=== PATIENT | male | born 1935 | race Caucasian/White ===

== ENCOUNTER → 2016-10-04 | Outpatient (REF) | payer MEDICARE ==
[~2016-10-04] MED LIST: AVEL1TAB PO; CALC500T49 PO; CALC600T10 PO; CENT1TAB PO; CEPA5.4L2 PO; CHLORAPHIL PO; CIPRODEX AD; COUM1TAB17 PO; DOXY100T16 PO; FERR325T3 PO; FLEEENE4 PR; GLUC1CAP9 PO; ICAPCAP PO; IPRASOL4 NEB; LOVE1INJ SC; LUTE6CAP2 PO; LUTIEN PO; MAGN64TASA PO; METO25TAB PO; METO50TA2 PO; MIRA3350 PO; MOM30SS PO; OMEP40CA2 PO; PERCOCET PO; POTA10CA PO; PRED5TA PO; PROBCAP4 PO; SENO8.6T10 PO; SILV1CRE19 TOP; TUMS500C PO; TYLE325T5 PO; ULTR50TA PO; VALS1TAB46 PO; VALS320T3 PO; VITA10006 PO; VITA200038 PO; VOLT1GEL24 TD; ZOFR4TAB3 PO; [UNRECOGNIZED DRUG - CODE] IM; [UNRECOGNIZED DRUG - CODE] IV; [UNRECOGNIZED DRUG - OTHER] PO; [UNRECOGNIZED DRUG - OTHER] PO; [UNRECOGNIZED DRUG - OTHER] PO; [UNRECOGNIZED DRUG - OTHER] PO
== END | disposition home or self-care (01) ==
LOC: M SFHCLERA 15:27
PROVIDERS: ATTEND Nurse Practitioner Family
DX: J06.9 Acute upper respiratory infection, unspecified (principal)

== ENCOUNTER 2016-10-07 16:57 | Emergency (ER) | payer MEDICARE ==
[~2016-10-07 16:57] MED LIST changes: -ACETAMINOPHEN TAB 650MG DOSE (2X325MG) PO PRN; -LIDOCAINE 2% INJ 100 MG/5 ML SDV (FOR ANES.) As Ordered ONE; -LR 1,000 ML IV SCH; -METOCLOPRAMIDE INJ 10MG/2ML VIAL (J2765) IV PRN; -MIDAZOLAM INJ 2 MG/2 ML VIAL (J2250) As Ordered ONE; -ONDANSETRON 4MG/2ML VIAL (J2405) As Ordered ONE; -ONDANSETRON 4MG/2ML VIAL (J2405) IV PRN; -PROPOFOL 200 MG/20 ML VIAL As Ordered ONE; -ROCURONIUM BROMIDE 50 MG/5 ML VIAL As Ordered ONE; -SUGAMMADEX SODIUM 500 MG/5 ML VIAL (BRIDION) As Ordered ONE; -dexameTHASONE 4 MG/ML 1ML VIAL (J1100) As Ordered ONE; -fentaNYL 100 MCG/2 ML INJECTION (J3010) As Ordered ONE; -fentaNYL 100 MCG/2 ML INJECTION (J3010) IV PRN; -oxyBUTYnin 5 MG TAB PO PRN
[2016-10-07 19:19] LABS: BASO % 0.1 % (0.0-1.0); EOS % 1.2 % (0.0-3.0); LARGE UNSTAINED CELL # 0.1 K/mm3 (0.0-0.4); LARGE UNSTAINED CELL % 1.9 % (0.0-4.0); LYMPH # 0.6 K/mm3 (1.5-4.5); LYMPH % 16.8 % (24.0-44.0); MEAN CORPUSCULAR HEMOGLOBIN 35.9 pg (27.0-33.0); MEAN CORPUSCULAR HGB CONC 35.1 g/dl (32.0-36.5); MEAN CORPUSCULAR VOLUME 102.1 fl (80.0-96.0); MONO # 0.1 K/mm3 (0.0-0.8); MONO % 4.2 % (0.0-5.0); NEUTROPHILS # 2.5 K/mm3 (1.8-7.7); NEUTROPHILS % 75.8 % (36.0-66.0); PLATELET COUNT, AUTOMATED 120 k/mm3 (150-450); RED CELL DISTRIBUTION WIDTH 17.1 % (11.5-14.5); WHITE BLOOD COUNT 3.3 K/mm3 (4.0-10.0)
[2016-10-07 19:20] LABS: INR 0.99
[2016-10-07 21:27] LABS: ANION GAP 7 MEQ/L (8-16); BLOOD UREA NITROGEN 13 MG/DL (7-18); CALCIUM LEVEL 8.6 MG/DL (8.8-10.2); CARBON DIOXIDE LEVEL 29 MEQ/L (21-32); CHLORIDE LEVEL 106 MEQ/L (98-107); CREATININE FOR GFR 0.62 MG/DL (0.70-1.30); GLOMERULAR FILTRATION RATE > 60.0 (>35); GLUCOSE, FASTING 147 MG/DL (83-110); POTASSIUM SERUM 4.2 MEQ/L (3.5-5.1); SODIUM LEVEL 142 MEQ/L (136-145)
--- NOTE | 2016-10-07 21:59 | EDDOCDS ---
Nurse's Notes [facility] Name: Atul Ng Age: 81 yrs Sex: Male : 1935 Arrival Date: 10/07/2016 Time: 16:57 Bed 10 Private MD: Johny Mae MD Diagnosis: Retention of urine-resolved Presentation: 10/07 17:04 Presenting complaint: Patient states: pt had bladder resection done today with Dr. clifford Acevedo. Discharged at approx 1430 today. Pt's daughter noticed urine was not draining into bag, urine leaking around catheter. pt reports lower abdominal pressure. Adult Sepsis Screening: The patient does not have new or worsening altered mentation. Patient's respiratory rate is less than 22. Systolic blood pressure is greater than 100. Patient has a qSOFA score of 0- Negative Sepsis Screen. Suicide/Homicide risk assessment- the patient denies having any suicidal and/or homicidal ideations and does not present with any other emotional, behavioral or mental health complaints. 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 Transition of care: patient was not received from another setting of care. 17:04 Acuity: BONY Level 3 ead 17:04 Method Of Arrival: Wheelchair ead Triage Assessment: 17:09 General: Appears in no apparent distress, uncomfortable, Behavior is appropriate for ead age, cooperative. Pain: Location: pelvis Pain currently is 5 out of 10 on a pain scale. Respiratory: Airway is patent Respiratory effort is even, unlabored. : Reports pelvic pressure, urine not draining to catheter. catheter placed today by Dr. Acevedo. Derm: Skin is pink, warm & dry. Historical: - Allergies: Heparin; - Home Meds: 1. calcium 600 mg twice a day 2. chemotherapy Unknown last dose 08/16/16 3. Coumadin 5 mg Oral tab 1 tab once daily (Last dose: 10/01/2016) 4. ferrous sulfate 325 mg (65 mg iron) Oral TbEC daily 5. lutein 6 mg oral cap daily 6. [id number] DR 64 mg daily 7. metoprolol tartrate 25 mg Oral tab 1 tab 2 times per day 8. multivitamin Oral tab 1 tab daily 9. omeprazole 40 mg Oral cpDR 1 cap once daily 10. potassium chloride 10 mEq Oral TbTQ 1 tab once daily 11. prednisone 5 mg Oral tab once daily as needed during flare ups 12. valsartan 80 mg oral tab 1 tab once daily 13. Vitamin D Oral 2000 unit daily 14. Chemotherapy IV - PMHx: Pacemaker; pig valve replacement; Anemia; MDS; GERD; Hypertension; Atrial Fib; - PSHx: left ankle; Knee surgery- Left; Heart Surgery; Pacemaker Insertion; bladder resection; - Social history: Smoking status: Patient states former smoker of tobacco. No barriers to communication noted, The patient speaks fluent Mongolian, Speaks appropriately for age. - Family history: Not pertinent. - : The pt / caregiver states he / she is on anticoagulants: coumadin. have not had since Friday. Pt was on lovenox x 5 days, last dose was yesterday Home medication list is obtained from the patient, family members, [employer] import data. - Exposure Risk Screening:: None identified. Screenin:57 Screening information is obtained from the patient. Fall risk: No risks identified. mlc Assistance ADL's: requires no assistance with activities of daily living. Abuse/DV Screen: The patient / caregiver reports he/she is: not in a situation that causes fear, pain or injury. Nutritional screening: No deficits noted. Advance Directives: There is no active DNR order. home support is adequate. Assessment: 17:34 General: daughter states she saw a big clot in bag opening and removed it PRINCIPAL SOLUTIONS ARCHITECT. srm irrigated zuniga with sterile water- able to instill easily but pulling back meet resistance. . one very small clot noted in return. catheter attached to leg bag. daughter also states he had trouble a few months ago with blockage of catheter. . 19:06 General: pt sand daughter states zuniga is now draining on its own. pink tinged urine srm noted in urinal. 19:40 General: Appears in no apparent distress, comfortable, Behavior is cooperative. mlc Neurological: Level of Consciousness is awake, alert, obeys commands, Oriented to person, place, time. Respiratory: Airway is patent Respiratory effort is even, unlabored, Respiratory pattern is regular. GI: Abdomen is obese, Bowel sounds present X 4 quads. Abd is soft X 4 quads. : Urine is blood tinged. Derm: Skin is normal. 20:21 General: leg bag switched to zuniga drainage bag. Urine draining to gravity. 60 ml of NS mlc flushed into zuniga, returned clear yellow urine. pt denies pain. . 21:28 Reassessment: Patient appears in no apparent distress at this time. Patient denies pain mlc at this time. pt resting comfortably, resp easy/unlabored. Zuniga bag draining to gravity. . 21:57 General: Appears in no apparent distress, comfortable, Behavior is cooperative. mlc Neurological: Level of Consciousness is awake, alert, Oriented to person, place, time. Respiratory: Airway is patent Respiratory effort is even, unlabored, Respiratory pattern is regular. Vital Signs: 17:00 BP 198 / 89; Pulse 88; Resp 18 S; Temp 96.8(O); Pulse Ox 97% on R/A; Weight 88.45 kg dd6 (R); Height 5 ft. 7 in. (170.18 cm) (R); 17:17 BP 189 / 86 (auto/); srm 21:40 BP 158 / 100; Pulse 50; Resp 18; Temp 97.2(O); Pulse Ox 96% on R/A; Pain 0/10; keo 21:45 BP 142 / 78 (man/); keo 17:00 Body Mass Index 30.54 (88.45 kg, 170.18 cm) dd6 Vitals: 17:00 Log In Time: October 07, 2016 at 16:58. RN notified that patient meets Red Flag dd6 criteria. ED Course: 16:59 Patient visited by Loy Peña PCA. dd6 16:59 Johny Mae is Private Physician. dd6 16:59 Patient moved to Waiting dd6 17:01 Patient moved to Pre RCE dd6 17:06 Triage Initiated ead 17:11 Patient moved to 10 ead 17:34 The patient / caregiver is instructed regarding the plan of care and ED course. srm Accompanied by Family Member, Patient has correct armband on for positive identification. Bed in low position. Call light in reach. 18:21 Patient visited by Swati Ernandez PCA. ct3 18:33 Al Shelley MD is Attending Physician. br1 18:44 Patient visited by Al Shelley MD. br1 18:55 Jennie Vargas,RN is Primary Nurse. mlc 19:03 PTT Sent. srm 19:03 PT/INR Sent. srm 19:03 BMP Sent. srm 19:03 CBC with Diff Sent. srm 19:06 Inserted saline lock: 20 gauge in left and blood collected. The patient tolerated the srm procedure well. wrist. 19:07 Patient visited by Kira Kim RN. srm 19:12 [facility] Payment Agreement was scanned into [employer] and attached to record. zo 19:13 Patient visited by Abhinav Kiser PCA. kb5 19:17 Urine Culture Sent. cln 19:17 Urinalysis Sent. cln 20:11 Patient visited by Abhinav Kiser PCA. kb5 20:23 Patient visited by Jennie Vargas RN. mlc 21:24 Patient visited by Ruth Hamilton PCA. keo 21:29 Patient visited by Jennie Vargas RN. mlc 21:38 Jose Carlos Noyola is Referral Physician. br1 21:41 Patient visited by Ruth Hamilton PCA. keo 21:46 Patient visited by Ruth Hamilton PCA. keo 21:57 Discontinued IV lock intact, bleeding controlled, pressure dressing applied, No mlc redness/swelling at site. No procedures done that require assistance. Output: 19:08 Urine: 450.00ml (Zuniga); Total: 450.00ml. [facility] Order Results: Lab Order: CBC with Diff; SPEC'M 10/07/16 19:00 Test: WHITE BLOOD COUNT; Value: 3.3; Range: 4.0-10.0; Abnormal: Below low normal; Units: K/mm3; Status: F Test: RED BLOOD COUNT; Value: 3.08; Range: 4.30-6.10; Abnormal: Below low normal; Units: M/mm3; Status: F Test: HEMOGLOBIN; Value: 11.1; Range: 14.0-18.0; Abnormal: Below low normal; Units: g/dl; Status: F Test: HEMATOCRIT; Value: 31.5; Range: 42.0-52.0; Abnormal: Below low normal; Units: %; Status: F Test: MEAN CORPUSCULAR VOLUME; Value: 102.1; Range: 80.0-96.0; Abnormal: Above high normal; Units: fl; Status: F Test: MEAN CORPUSCULAR HEMOGLOBIN; Value: 35.9; Range: 27.0-33.0; Abnormal: Above high normal; Units: pg; Status: F Test: MEAN CORPUSCULAR HGB CONC; Value: 35.1; Range: 32.0-36.5; Units: g/dl; Status: F Test: RED CELL DISTRIBUTION WIDTH; Value: 17.1; Range: 11.5-14.5; Abnormal: Above high normal; Units: %; Status: F Test: PLATELET COUNT, AUTOMATED; Value: 120; Range: 150-450; Abnormal: Below low normal; Units: k/mm3; Status: F Test: NEUTROPHILS %; Value: 75.8; Range: 36.0-66.0; Abnormal: Above high normal; Units: %; Status: F Test: LYMPH %; Value: 16.8; Range: 24.0-44.0; Abnormal: Below low normal; Units: %; Status: F Test: MONO %; Value: 4.2; Range: 0.0-5.0; Units: %; Status: F Test: EOS %; Value: 1.2; Range: 0.0-3.0; Units: %; Status: F Test: BASO %; Value: 0.1; Range: 0.0-1.0; Units: %; Status: F Test: LARGE UNSTAINED CELL %; Value: 1.9; Range: 0.0-4.0; Units: %; Status: F Test: NEUTROPHILS #; Value: 2.5; Range: 1.8-7.7; Units: K/mm3; Status: F Test: LYMPH #; Value: 0.6; Range: 1.5-4.5; Abnormal: Below low normal; Units: K/mm3; Status: F Test: MONO #; Value: 0.1; Range: 0.0-0.8; Units: K/mm3; Status: F Test: EOS #; Value: 0.0; Range: 0.0-0.50; Units: K/mm3; Status: F Test: BASO #; Value: 0.0; Range: 0.0-0.2; Units: K/mm3; Status: F Test: LARGE UNSTAINED CELL #; Value: 0.1; Range: 0.0-0.4; Units: K/mm3; Status: F Lab Order: [facility]; SPEC'M 10/07/16 20:48 Test: GLUCOSE, FASTING; Value: 147; Range: 83-110; Abnormal: Above high normal; Units: MG/DL; Status: F Test: BLOOD UREA NITROGEN; Value: 13; Range: 7-18; Units: MG/DL; Status: F Test: CREATININE FOR GFR; Value: 0.62; Range: 0.70-1.30; Abnormal: Below low normal; Units: MG/DL; Status: F Test: GLOMERULAR FILTRATION RATE; Value: > 60.0; Range: >35; Status: F Test: SODIUM LEVEL; Value: 142; Range: 136-145; Units: MEQ/L; Status: F Test: POTASSIUM SERUM; Value: 4.2; Range: 3.5-5.1; Units: MEQ/L; Status: F Test: CHLORIDE LEVEL; Value: 106; Range: 98-107; Units: MEQ/L; Status: F Test: CARBON DIOXIDE LEVEL; Value: 29; Range: 21-32; Units: MEQ/L; Status: F Test: ANION GAP; Value: 7; Range: 8-16; Abnormal: Below low normal; Units: MEQ/L; Status: F Test: CALCIUM LEVEL; Value: 8.6; Range: 8.8-10.2; Abnormal: Below low normal; Units: MG/DL; Status: F Test Note: ; Units are mL/min/1.73 m2 Chronic Kidney Disease Staging per NKF: Stage I & II GFR >=60 Normal to Mildly Decreased Stage III GFR 30-59 Moderately Decreased Stage IV GFR 15-29 Severely Decreased Stage V GFR <15 Very Little GFR Left ESRD GFR <15 on FILM RENTAL CLERK Lab Order: PT/INR; SPEC'M 10/07/16 19:00 Test: PROTHROMBIN TIME; Value: 13.2; Range: 12.3-14.5; Units: SECONDS; Status: F Test: INR; Value: 0.99; Status: F Test Note: ; THERAPUTIC HUMAN INR VALUES INDICATIONS NORMAL RANGES PROPHYLAXIS/TREATMENT OF: VENOUS THROMBOSIS 2.0-3.0 PULMONARY EMBOLISM 2.0-3.0 PREVENTION OF SYSTEMIC EMBOLISM FROM: TISSUE HEART VALVES 2.0-3.0 ACUTE MYOCARDIAL INFARCTION 2.0-3.0 VALVULAR HEART DISEASE 2.0-3.0 ATRIAL FIBRILLATION 2.0-3.0 MECHANICAL VALVES(HIGH RISK) 2.5-3.5 RECURRENT MYOCARDIAL INFARCTION 2.5-3.5 Lab Order: PTT; SPEC'M 10/07/16 19:00 Test: PARTIAL THROMBOPLASTIN TIME; Value: 31.0; Range: 26.6-37.1; Units: SECONDS; Status: F Lab Order: Urinalysis; SPEC'M 10/07/16 20:15 Test: APPEARANCE, URINE; Value: CLEAR; Range: CLEAR; Status: F Test: COLOR, URINE; Value: STRAW; Range: YELLOW; Status: F Test: PH,URINE; Value: 7.0; Range: 5.0-9.0; Units: UNITS; Status: F Test: SPECIFIC GRAVITY URINE AUTO; Value: 1.002; Range: 1.002-1.035; Status: F Test: PROTEIN, URINE AUTO; Value: 1+; Range: NEGATIVE; Abnormal: Above high normal; Units: mg/dL; Status: F Test: GLUCOSE, URINE (UA) AUTO; Value: NEGATIVE; Range: NEGATIVE; Units: mg/dL; Status: F Test: KETONE, URINE AUTO; Value: NEGATIVE; Range: NEGATIVE; Units: mg/dL; Status: F Test: UROBILINOGEN, URINE AUTO; Value: 0.2; Range: 0.0-2.0; Units: mg/dL; Status: F Test: BILIRUBIN, URINE AUTO; Value: NEGATIVE; Range: NEGATIVE; Status: F Test: NITRITE, URINE AUTO; Value: NEGATIVE; Range: NEGATIVE; Status: F Test: LEUKOCYTE ESTERASE, URINE AUTO; Value: NEGATIVE; Range: NEGATIVE; Status: F Test: BLOOD, URINE BLOOD; Value: 3+; Range: NEGATIVE; Abnormal: Above high normal; Status: F Test: WBC, URINE AUTO; Value: 3; Range: 0-3; Units: /HPF; Status: F Test: RBC, URINE AUTO; Value: 23; Range: 0-3; Abnormal: Above high normal; Units: /HPF; Status: F Test: BACTERIA, URINE AUTO; Value: NEGATIVE; Range: NEGATIVE; Status: F Test: SQUAMOUS EPITHELIAL CELL UR AU; Value: 0; Range: 0-6; Units: /HPF; Status: F Test: HYALINE CAST, URINE AUTO; Value: 0; Range: 0-1; Units: /LPF; Status: F Outcome: 21:39 Discharge ordered by Provider. br1 21:57 Discharge Assessment: Patient awake, alert and oriented x 3. No cognitive and/or mlc functional deficits noted. Patient verbalized understanding of disposition instructions. patient administered narcotics - no. The following High Risk Discharge criteria are identified: None. Discharged to home via wheelchair, with family. Condition: good Condition: stable. Discharge instructions given to patient, Instructed on discharge instructions, follow up and referral plans. Demonstrated understanding of instructions, Pt was receptive of discharge instructions/ teaching. No special radiology studies were completed. Property sent home with patient. 21:58 [place] [facility] [place]: Kira Kim, RN RN srm Emiliano, Abhinav Leija, TECHNICAL ADJUSTER TECHNICAL ADJUSTER kb5 Al Shelley MD MD br1 Loy Peña, TECHNICAL ADJUSTER TECHNICAL ADJUSTER dd6 Ruth Hamilton, TECHNICAL ADJUSTER TECHNICAL ADJUSTER keo Swati Ernandez, TECHNICAL ADJUSTER TECHNICAL ADJUSTER ct3 Rosalie Mixon RN RN ead Booth, Mandy, RN RN mlc Nichols, Crystal, TECHNICAL ADJUSTER TECHNICAL ADJUSTER cln JUAN MANUEL
--- NOTE | 2016-10-07 21:59 | EDDOCDS ---
Physician Documentation [facility] Name: Atul Ng Age: 81 yrs Sex: Male : 1935 Arrival Date: 10/07/2016 Time: 16:57 Bed 10 Private MD: Johny Mae MD Disposition: 10/07/16 21:39 Discharged to Home/Self Care. Impression: Retention of urine - resolved. - Condition is Stable. - Discharge Instructions: Zuniga Catheter Care, Adult, Hematuria, Adult, Urinary Retention, Acute, Male. - Medication Reconciliation, Local Pharmacy Hours form. - Follow up: Jose Carlos Noyola; When: 1 week; Reason: Recheck today's complaints. - Problem is new. - Symptoms are resolved. - Notes: You were seen in the ED for urinary retention from a plugged catheter after your urology procedure today. The catheter was able to be flushed and as it is now working appropriately you may return home to follow up with your urologist in 1 week. Return to the ED for any return of pain, zuniga catheter not draining, worsening bleeding in the urine, or any other concerns. Historical: - Allergies: Heparin; - Home Meds: 1. calcium 600 mg twice a day 2. chemotherapy Unknown last dose 08/16/16 3. Coumadin 5 mg Oral tab 1 tab once daily (Last dose: 10/01/2016) 4. ferrous sulfate 325 mg (65 mg iron) Oral TbEC daily 5. lutein 6 mg oral cap daily 6. [id number] DR 64 mg daily 7. metoprolol tartrate 25 mg Oral tab 1 tab 2 times per day 8. multivitamin Oral tab 1 tab daily 9. omeprazole 40 mg Oral cpDR 1 cap once daily 10. potassium chloride 10 mEq Oral TbTQ 1 tab once daily 11. prednisone 5 mg Oral tab once daily as needed during flare ups 12. valsartan 80 mg oral tab 1 tab once daily 13. Vitamin D Oral 2000 unit daily 14. Chemotherapy IV - PMHx: Pacemaker; pig valve replacement; Anemia; MDS; GERD; Hypertension; Atrial Fib; - PSHx: left ankle; Knee surgery- Left; Heart Surgery; Pacemaker Insertion; bladder resection; - Social history: Smoking status: Patient states former smoker of tobacco. No barriers to communication noted, The patient speaks fluent [place], Speaks appropriately for age. - Family history: Not pertinent. - : The pt / caregiver states he / she is on anticoagulants: coumadin. have not had since Friday. Pt was on lovenox x 5 days, last dose was yesterday Home medication list is obtained from the patient, family members, [employer] import data. - Exposure Risk Screening:: None identified. Vital Signs: 10/07 17:00 BP 198 / 89; Pulse 88; Resp 18 S; Temp 96.8(O); Pulse Ox 97% on R/A; Weight 88.45 kg / dd6 195 lbs (R); Height 5 ft. 7 in. (170.18 cm) (R); 17:17 BP 189 / 86 (auto/); srm 21:40 BP 158 / 100; Pulse 50; Resp 18; Temp 97.2(O); Pulse Ox 96% on R/A; Pain 0/10; keo 21:45 BP 142 / 78 (man/); keo 17:00 Body Mass Index 30.54 (88.45 kg, 170.18 cm) dd6 MDM: 18:44 IV Saline Lock ordered. br1 18:45 Bladder Scan please ordered. br1 18:45 CBC with Diff Ordered. EDMS 18:45 BMP Ordered. EDMS 18:45 PT/INR Ordered. EDMS 18:45 PTT Ordered. EDMS 18:46 Urinalysis Ordered. EDMS 18:46 Urine Culture Ordered. EDMS 19:10 Financial registration complete. zo 19:12 [facility] Payment Agreement was scanned into [employer] and attached to record. zo 21:13 CBC with Diff Reviewed. br1 21:13 Urinalysis Reviewed. br1 21:13 PT/INR Reviewed. br1 21:13 PTT Reviewed. br1 21:31 BMP Reviewed. br1 Signatures: Dispatcher [employer] EDMS Kira Kim RN RN srm Jayleen Cummings zo Al Shelley MD MD br1 Rosalie Mixon RN RN ead Booth, Mandy, RN RN mlc The chart was reviewed and I authenticate all verbal orders and agree with the evaluation and treatment provided.Attachments: 19:12 [facility] Payment Agreement zo MTDD
--- NOTE | 2016-10-08 08:03 | RO ---
DATE OF PROCEDURE: 10/07/2016 PREOPERATIVE DIAGNOSIS: Bladder tumors. POSTOPERATIVE DIAGNOSIS: Bladder tumors. PROCEDURE: Cystoscopy, transurethral resection of bladder tumor (greater than 5 cm), examination under anesthesia. SURGEON: Jose Carlos Noyola MD LIFTS AND CRANES INSPECTOR: None. ANESTHESIA: General. 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 He was brought to the operating room today for resection of the bladder tumors. DESCRIPTION OF PROCEDURE: The patient was brought to the operating room, and general anesthesia was induced. Prophylactic antibiotics were infused. He was then placed in dorsal lithotomy position, and a bimanual digital rectal exam under anesthesia was performed. It was negative for a palpable prostate nodules and there were no palpable bladder masses. The patient was then prepped and draped in the usual sterile fashion. A rigid cystoscope was then inserted into the urethral meatus and advanced into the bladder. The bladder was then thoroughly examined with both 30 and 70 degree lenses, and at the 5-o'clock position on the bladder neck there appeared to be one papillary tumor growing on a stalk. 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 There were a few more of these lesions seen on the anterior wall as well. I then used a gyrus loop to resect all these areas. They were all sent separately. Once satisfied I resected all the abnormalities within the bladder, hemostasis was obtained with the coagulation current. Once satisfied with hemostasis, the resectoscope was removed and an #18 Telugu Dickson catheter was inserted into the bladder. Urine drained clear at the end of the procedure. The balloon was then inflated with 10 mL of sterile water. The catheter was then connected to gravity drainage. The patient was then taken out of dorsal lithotomy position, awakened from anesthesia and transported to recovery room in stable condition. ESTIMATED BLOOD LOSS: 0 mL. COMPLICATIONS: None. SPECIMENS: Resection of anterior wall bladder tumor, resection of posterior wall bladder tumor, resection of bladder tumor at the bladder neck. PLAN: The patient will be sent home with his catheter in place. He will followup in clinic in about 1 week for catheter removal and to discuss his pathology results. JUAN MANUEL
--- NOTE | 2016-10-09 22:59 | EDDOCDS ---
Physician Documentation [facility] Name: Atul Ng Age: 81 yrs Sex: Male : 1935 Arrival Date: 10/07/2016 Time: 16:57 Bed 10 Private MD: Johny Mae MD Disposition: 10/07/16 21:39 Discharged to Home/Self Care. Impression: Retention of urine - resolved. - Condition is Stable. - Discharge Instructions: Zuniga Catheter Care, Adult, Hematuria, Adult, Urinary Retention, Acute, Male. - Medication Reconciliation, Local Pharmacy Hours form. - Follow up: Jose Carlos Noyola; When: 1 week; Reason: Recheck today's complaints. - Problem is new. - Symptoms are resolved. - Notes: You were seen in the ED for urinary retention from a plugged catheter after your urology procedure today. The catheter was able to be flushed and as it is now working appropriately you may return home to follow up with your urologist in 1 week. Return to the ED for any return of pain, zuniga catheter not draining, worsening bleeding in the urine, or any other concerns. Historical: - Allergies: Heparin; - Home Meds: 1. calcium 600 mg twice a day 2. chemotherapy Unknown last dose 08/16/16 3. Coumadin 5 mg Oral tab 1 tab once daily (Last dose: 10/01/2016) 4. ferrous sulfate 325 mg (65 mg iron) Oral TbEC daily 5. lutein 6 mg oral cap daily 6. [id number] DR 64 mg daily 7. metoprolol tartrate 25 mg Oral tab 1 tab 2 times per day 8. multivitamin Oral tab 1 tab daily 9. omeprazole 40 mg Oral cpDR 1 cap once daily 10. potassium chloride 10 mEq Oral TbTQ 1 tab once daily 11. prednisone 5 mg Oral tab once daily as needed during flare ups 12. valsartan 80 mg oral tab 1 tab once daily 13. Vitamin D Oral 2000 unit daily 14. Chemotherapy IV - PMHx: Pacemaker; pig valve replacement; Anemia; MDS; GERD; Hypertension; Atrial Fib; - PSHx: left ankle; Knee surgery- Left; Heart Surgery; Pacemaker Insertion; bladder resection; - Social history: Smoking status: Patient states former smoker of tobacco. No barriers to communication noted, The patient speaks fluent Canadian, Speaks appropriately for age. - Family history: Not pertinent. - : The pt / caregiver states he / she is on anticoagulants: coumadin. have not had since Friday. Pt was on lovenox x 5 days, last dose was yesterday Home medication list is obtained from the patient, family members, [employer] import data. - Exposure Risk Screening:: None identified. Vital Signs: 10/07 17:00 BP 198 / 89; Pulse 88; Resp 18 S; Temp 96.8(O); Pulse Ox 97% on R/A; Weight 88.45 kg / dd6 195 lbs (R); Height 5 ft. 7 in. (170.18 cm) (R); 17:17 BP 189 / 86 (auto/); srm 21:40 BP 158 / 100; Pulse 50; Resp 18; Temp 97.2(O); Pulse Ox 96% on R/A; Pain 0/10; keo 21:45 BP 142 / 78 (man/); keo 17:00 Body Mass Index 30.54 (88.45 kg, 170.18 cm) dd6 MDM: 18:44 IV Saline Lock ordered. br1 18:45 Bladder Scan please ordered. br1 18:45 CBC with Diff Ordered. EDMS 18:45 BMP Ordered. EDMS 18:45 PT/INR Ordered. EDMS 18:45 PTT Ordered. EDMS 18:46 Urinalysis Ordered. EDMS 18:46 Urine Culture Ordered. EDMS 19:10 Financial registration complete. zo 19:12 [facility] Payment Agreement was scanned into [employer] and attached to record. zo 21:13 CBC with Diff Reviewed. br1 21:13 Urinalysis Reviewed. br1 21:13 PT/INR Reviewed. br1 21:13 PTT Reviewed. br1 21:31 BMP Reviewed. br1 10/08 09:08 T-Sheet-- Draft Copy was scanned into [employer] and attached to record. gb Signatures: Dispatcher [employer] EDMS Kira Kim, CHRISTIANO RN srm Marguerite Tinoco, Reg Reg Jayleen Burciaga Brian, MD MD br1 Rosalie Mixon RN RN Jennie Jenkins RN RN mlc The chart was reviewed and I authenticate all verbal orders and agree with the evaluation and treatment provided.Attachments: 10/07 19:12 [facility] Payment Agreement zo 10/08 09:08 T-Sheet-- Draft Copy gb Chart Complete MTDD
--- NOTE | 2016-10-09 22:59 | EDDOCDS ---
Nurse's Notes [facility] Name: Atul Ng Age: 81 yrs Sex: Male : 1935 Arrival Date: 10/07/2016 Time: 16:57 Bed 10 Private MD: Johny Mae MD Diagnosis: Retention of urine-resolved Presentation: 10/07 17:04 Presenting complaint: Patient states: pt had bladder resection done today with Dr. clifford Acevedo. Discharged at approx 1430 today. Pt's daughter noticed urine was not draining into bag, urine leaking around catheter. pt reports lower abdominal pressure. Adult Sepsis Screening: The patient does not have new or worsening altered mentation. Patient's respiratory rate is less than 22. Systolic blood pressure is greater than 100. Patient has a qSOFA score of 0- Negative Sepsis Screen. Suicide/Homicide risk assessment- the patient denies having any suicidal and/or homicidal ideations and does not present with any other emotional, behavioral or mental health complaints. Status: Patient is not a passenger service agent or dependent. Transition of care: patient was not received from another setting of care. 17:04 Acuity: BONY Level 3 ead 17:04 Method Of Arrival: Wheelchair ead Triage Assessment: 17:09 General: Appears in no apparent distress, uncomfortable, Behavior is appropriate for ead age, cooperative. Pain: Location: pelvis Pain currently is 5 out of 10 on a pain scale. Respiratory: Airway is patent Respiratory effort is even, unlabored. : Reports pelvic pressure, urine not draining to catheter. catheter placed today by Dr. Acevedo. Derm: Skin is pink, warm & dry. Historical: - Allergies: Heparin; - Home Meds: 1. calcium 600 mg twice a day 2. chemotherapy Unknown last dose 08/16/16 3. Coumadin 5 mg Oral tab 1 tab once daily (Last dose: 10/01/2016) 4. ferrous sulfate 325 mg (65 mg iron) Oral TbEC daily 5. lutein 6 mg oral cap daily 6. [id number] DR 64 mg daily 7. metoprolol tartrate 25 mg Oral tab 1 tab 2 times per day 8. multivitamin Oral tab 1 tab daily 9. omeprazole 40 mg Oral cpDR 1 cap once daily 10. potassium chloride 10 mEq Oral TbTQ 1 tab once daily 11. prednisone 5 mg Oral tab once daily as needed during flare ups 12. valsartan 80 mg oral tab 1 tab once daily 13. Vitamin D Oral 2000 unit daily 14. Chemotherapy IV - PMHx: Pacemaker; pig valve replacement; Anemia; MDS; GERD; Hypertension; Atrial Fib; - PSHx: left ankle; Knee surgery- Left; Heart Surgery; Pacemaker Insertion; bladder resection; - Social history: Smoking status: Patient states former smoker of tobacco. No barriers to communication noted, The patient speaks fluent Turkish, Speaks appropriately for age. - Family history: Not pertinent. - : The pt / caregiver states he / she is on anticoagulants: coumadin. have not had since Friday. Pt was on lovenox x 5 days, last dose was yesterday Home medication list is obtained from the patient, family members, [employer] import data. - Exposure Risk Screening:: None identified. Screenin:57 Screening information is obtained from the patient. Fall risk: No risks identified. mlc Assistance ADL's: requires no assistance with activities of daily living. Abuse/DV Screen: The patient / caregiver reports he/she is: not in a situation that causes fear, pain or injury. Nutritional screening: No deficits noted. Advance Directives: There is no active DNR order. home support is adequate. 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 srm irrigated zuniga with sterile water- able to instill easily but pulling back meet resistance. . one very small clot noted in return. catheter attached to leg bag. daughter also states he had trouble a few months ago with blockage of catheter. . 19:06 General: pt sand daughter states zuniga is now draining on its own. pink tinged urine srm noted in urinal. 19:40 General: Appears in no apparent distress, comfortable, Behavior is cooperative. mlc Neurological: Level of Consciousness is awake, alert, obeys commands, Oriented to person, place, time. Respiratory: Airway is patent Respiratory effort is even, unlabored, Respiratory pattern is regular. GI: Abdomen is obese, Bowel sounds present X 4 quads. Abd is soft X 4 quads. : Urine is blood tinged. Derm: Skin is normal. 20:21 General: leg bag switched to zuniga drainage bag. Urine draining to gravity. 60 ml of NS mlc flushed into zuniga, returned clear yellow urine. pt denies pain. . 21:28 Reassessment: Patient appears in no apparent distress at this time. Patient denies pain mlc at this time. pt resting comfortably, resp easy/unlabored. Zuniga bag draining to gravity. . 21:57 General: Appears in no apparent distress, comfortable, Behavior is cooperative. mlc Neurological: Level of Consciousness is awake, alert, Oriented to person, place, time. Respiratory: Airway is patent Respiratory effort is even, unlabored, Respiratory pattern is regular. Vital Signs: 17:00 BP 198 / 89; Pulse 88; Resp 18 S; Temp 96.8(O); Pulse Ox 97% on R/A; Weight 88.45 kg dd6 (R); Height 5 ft. 7 in. (170.18 cm) (R); 17:17 BP 189 / 86 (auto/); srm 21:40 BP 158 / 100; Pulse 50; Resp 18; Temp 97.2(O); Pulse Ox 96% on R/A; Pain 0/10; keo 21:45 BP 142 / 78 (man/); keo 17:00 Body Mass Index 30.54 (88.45 kg, 170.18 cm) dd6 Vitals: 17:00 Log In Time: October 07, 2016 at 16:58. RN notified that patient meets Red Flag dd6 criteria. ED Course: 16:59 Patient visited by Loy Peña PCA. dd6 16:59 Johny Mae is Private Physician. dd6 16:59 Patient moved to Waiting dd6 17:01 Patient moved to Pre RCE dd6 17:06 Triage Initiated ead 17:11 Patient moved to 10 ead 17:34 The patient / caregiver is instructed regarding the plan of care and ED course. srm Accompanied by Family Member, Patient has correct armband on for positive identification. Bed in low position. Call light in reach. 18:21 Patient visited by Swati Ernandez PCA. ct3 18:33 Al Shelley MD is Attending Physician. br1 18:44 Patient visited by Al Shelley MD. br1 18:55 Jennie Vargas,RN is Primary Nurse. mlc 19:03 PTT Sent. srm 19:03 PT/INR Sent. srm 19:03 BMP Sent. srm 19:03 CBC with Diff Sent. srm 19:06 Inserted saline lock: 20 gauge in left and blood collected. The patient tolerated the srm procedure well. wrist. 19:07 Patient visited by Kira Kim RN. srm 19:12 [facility] Payment Agreement was scanned into [employer] and attached to record. zo 19:13 Patient visited by Abhinav Kiser PCA. kb5 19:17 Urine Culture Sent. cln 19:17 Urinalysis Sent. cln 20:11 Patient visited by Abhinav Kiser PCA. kb5 20:23 Patient visited by Jennie Vargas RN. mlc 21:24 Patient visited by Ruth Hamilton PCA. keo 21:29 Patient visited by Jennie Vargas RN. mlc 21:38 Jose Carlos Noyola is Referral Physician. br1 21:41 Patient visited by Ruth Hamilton PCA. keo 21:46 Patient visited by Ruth Hamilton PCA. keo 21:57 Discontinued IV lock intact, bleeding controlled, pressure dressing applied, No mlc redness/swelling at site. No procedures done that require assistance. 10/08 09:08 T-Sheet-- Draft Copy was scanned into [employer] and attached to record. gb Output: 10/07 19:08 Urine: 450.00ml (Zuniga); Total: 450.00ml. [facility] Order Results: Lab Order: CBC with Diff; SPEC'M 10/07/16 19:00 Test: WHITE BLOOD COUNT; Value: 3.3; Range: 4.0-10.0; Abnormal: Below low normal; Units: K/mm3; Status: F Test: RED BLOOD COUNT; Value: 3.08; Range: 4.30-6.10; Abnormal: Below low normal; Units: M/mm3; Status: F Test: HEMOGLOBIN; Value: 11.1; Range: 14.0-18.0; Abnormal: Below low normal; Units: g/dl; Status: F Test: HEMATOCRIT; Value: 31.5; Range: 42.0-52.0; Abnormal: Below low normal; Units: %; Status: F Test: MEAN CORPUSCULAR VOLUME; Value: 102.1; Range: 80.0-96.0; Abnormal: Above high normal; Units: fl; Status: F Test: MEAN CORPUSCULAR HEMOGLOBIN; Value: 35.9; Range: 27.0-33.0; Abnormal: Above high normal; Units: pg; Status: F Test: MEAN CORPUSCULAR HGB CONC; Value: 35.1; Range: 32.0-36.5; Units: g/dl; Status: F Test: RED CELL DISTRIBUTION WIDTH; Value: 17.1; Range: 11.5-14.5; Abnormal: Above high normal; Units: %; Status: F Test: PLATELET COUNT, AUTOMATED; Value: 120; Range: 150-450; Abnormal: Below low normal; Units: k/mm3; Status: F Test: NEUTROPHILS %; Value: 75.8; Range: 36.0-66.0; Abnormal: Above high normal; Units: %; Status: F Test: LYMPH %; Value: 16.8; Range: 24.0-44.0; Abnormal: Below low normal; Units: %; Status: F Test: MONO %; Value: 4.2; Range: 0.0-5.0; Units: %; Status: F Test: EOS %; Value: 1.2; Range: 0.0-3.0; Units: %; Status: F Test: BASO %; Value: 0.1; Range: 0.0-1.0; Units: %; Status: F Test: LARGE UNSTAINED CELL %; Value: 1.9; Range: 0.0-4.0; Units: %; Status: F Test: NEUTROPHILS #; Value: 2.5; Range: 1.8-7.7; Units: K/mm3; Status: F Test: LYMPH #; Value: 0.6; Range: 1.5-4.5; Abnormal: Below low normal; Units: K/mm3; Status: F Test: MONO #; Value: 0.1; Range: 0.0-0.8; Units: K/mm3; Status: F Test: EOS #; Value: 0.0; Range: 0.0-0.50; Units: K/mm3; Status: F Test: BASO #; Value: 0.0; Range: 0.0-0.2; Units: K/mm3; Status: F Test: LARGE UNSTAINED CELL #; Value: 0.1; Range: 0.0-0.4; Units: K/mm3; Status: F Lab Order: BMP; SPEC'10/07/16 20:48 Test: GLUCOSE, FASTING; Value: 147; Range: 83-110; Abnormal: Above high normal; Units: MG/DL; Status: F Test: BLOOD UREA NITROGEN; Value: 13; Range: 7-18; Units: MG/DL; Status: F Test: CREATININE FOR GFR; Value: 0.62; Range: 0.70-1.30; Abnormal: Below low normal; Units: MG/DL; Status: F Test: GLOMERULAR FILTRATION RATE; Value: > 60.0; Range: >35; Status: F Test: SODIUM LEVEL; Value: 142; Range: 136-145; Units: MEQ/L; Status: F Test: POTASSIUM SERUM; Value: 4.2; Range: 3.5-5.1; Units: MEQ/L; Status: F Test: CHLORIDE LEVEL; Value: 106; Range: 98-107; Units: MEQ/L; Status: F Test: CARBON DIOXIDE LEVEL; Value: 29; Range: 21-32; Units: MEQ/L; Status: F Test: ANION GAP; Value: 7; Range: 8-16; Abnormal: Below low normal; Units: MEQ/L; Status: F Test: CALCIUM LEVEL; Value: 8.6; Range: 8.8-10.2; Abnormal: Below low normal; Units: MG/DL; Status: F Test Note: ; Units are mL/min/1.73 m2 Chronic Kidney Disease Staging per NKF: Stage I & II GFR >=60 Normal to Mildly Decreased Stage III GFR 30-59 Moderately Decreased Stage IV GFR 15-29 Severely Decreased Stage V GFR <15 Very Little GFR Left ESRD GFR <15 on [employer] Lab Order: PT/INR; SPEC'10/07/16 19:00 Test: PROTHROMBIN TIME; Value: 13.2; Range: 12.3-14.5; Units: SECONDS; Status: F Test: INR; Value: 0.99; Status: F Test Note: ; THERAPUTIC HUMAN INR VALUES INDICATIONS NORMAL RANGES PROPHYLAXIS/TREATMENT OF: VENOUS THROMBOSIS 2.0-3.0 PULMONARY EMBOLISM 2.0-3.0 PREVENTION OF SYSTEMIC EMBOLISM FROM: TISSUE HEART VALVES 2.0-3.0 ACUTE MYOCARDIAL INFARCTION 2.0-3.0 VALVULAR HEART DISEASE 2.0-3.0 ATRIAL FIBRILLATION 2.0-3.0 MECHANICAL VALVES(HIGH RISK) 2.5-3.5 RECURRENT MYOCARDIAL INFARCTION 2.5-3.5 Lab Order: PTT; [facility] 10/07/16 19:00 Test: PARTIAL THROMBOPLASTIN TIME; Value: 31.0; Range: 26.6-37.1; Units: SECONDS; Status: F Lab Order: Urinalysis; [facility] 10/07/16 20:15 Test: APPEARANCE, URINE; Value: CLEAR; Range: CLEAR; Status: F Test: COLOR, URINE; Value: STRAW; Range: YELLOW; Status: F Test: PH,URINE; Value: 7.0; Range: 5.0-9.0; Units: UNITS; Status: F Test: SPECIFIC GRAVITY URINE AUTO; Value: 1.002; Range: 1.002-1.035; Status: F Test: PROTEIN, URINE AUTO; Value: 1+; Range: NEGATIVE; Abnormal: Above high normal; Units: mg/dL; Status: F Test: GLUCOSE, URINE (UA) AUTO; Value: NEGATIVE; Range: NEGATIVE; Units: mg/dL; Status: F Test: KETONE, URINE AUTO; Value: NEGATIVE; Range: NEGATIVE; Units: mg/dL; Status: F Test: UROBILINOGEN, URINE AUTO; Value: 0.2; Range: 0.0-2.0; Units: mg/dL; Status: F Test: BILIRUBIN, URINE AUTO; Value: NEGATIVE; Range: NEGATIVE; Status: F Test: NITRITE, URINE AUTO; Value: NEGATIVE; Range: NEGATIVE; Status: F Test: LEUKOCYTE ESTERASE, URINE AUTO; Value: NEGATIVE; Range: NEGATIVE; Status: F Test: BLOOD, URINE BLOOD; Value: 3+; Range: NEGATIVE; Abnormal: Above high normal; Status: F Test: WBC, URINE AUTO; Value: 3; Range: 0-3; Units: /HPF; Status: F Test: RBC, URINE AUTO; Value: 23; Range: 0-3; Abnormal: Above high normal; Units: /HPF; Status: F Test: BACTERIA, URINE AUTO; Value: NEGATIVE; Range: NEGATIVE; Status: F Test: SQUAMOUS EPITHELIAL CELL UR AU; Value: 0; Range: 0-6; Units: /HPF; Status: F Test: HYALINE CAST, URINE AUTO; Value: 0; Range: 0-1; Units: /LPF; Status: F Lab Order: Urine Culture; SPEC'M 10/07/16 20:15 Test: URINE CULTURE; Value: URINE CULTURE RESULT NO GROWTH; Status: F Outcome: 21:39 Discharge ordered by Provider. br1 21:57 Discharge Assessment: Patient awake, alert and oriented x 3. No cognitive and/or mlc functional deficits noted. Patient verbalized understanding of disposition instructions. patient administered narcotics - no. The following High Risk Discharge criteria are identified: None. Discharged to home via wheelchair, with family. Condition: good Condition: stable. Discharge instructions given to patient, Instructed on discharge instructions, follow up and referral plans. Demonstrated understanding of instructions, Pt was receptive of discharge instructions/ teaching. No special radiology studies were completed. Property sent home with patient. 21:58 Patient left the ED. [facility] Signatures: Kira Kim, CHRISTIANO RN [facility] Alejandrina, Marguerite, Reg Reg gb Emiliano, Abhinav Leija, COMPOSITION TILE LAYER COMPOSITION TILE LAYER kb5 Al Shelley MD MD br1 Loy Peña, COMPOSITION TILE LAYER COMPOSITION TILE LAYER dd6 Ruth Hamilton, COMPOSITION TILE LAYER COMPOSITION TILE LAYER keo Swati Ernandez, COMPOSITION TILE LAYER COMPOSITION TILE LAYER ct3 Rosalie Mixon RN RN ead Booth, Mandy, RN RN mlc Nichols, Crystal, COMPOSITION TILE LAYER COMPOSITION TILE LAYER cln Chart Complete JUAN MANUEL
--- NOTE | 2016-10-09 22:59 | EDDOCDS ---
Physician Documentation [facility] Name: Atul Ng Age: 81 yrs Sex: Male : 1935 Arrival Date: 10/07/2016 Time: 16:57 Bed 10 Private MD: Johny Mae MD Disposition: 10/07/16 21:39 Discharged to Home/Self Care. Impression: Retention of urine - resolved. - Condition is Stable. - Discharge Instructions: Zuniga Catheter Care, Adult, Hematuria, Adult, Urinary Retention, Acute, Male. - Medication Reconciliation, Local Pharmacy Hours form. - Follow up: Jose Carlos Noyola; When: 1 week; Reason: Recheck today's complaints. - Problem is new. - Symptoms are resolved. - Notes: You were seen in the ED for urinary retention from a plugged catheter after your urology procedure today. The catheter was able to be flushed and as it is now working appropriately you may return home to follow up with your urologist in 1 week. Return to the ED for any return of pain, zuniga catheter not draining, worsening bleeding in the urine, or any other concerns. Historical: - Allergies: Heparin; - Home Meds: 1. calcium 600 mg twice a day 2. chemotherapy Unknown last dose 08/16/16 3. Coumadin 5 mg Oral tab 1 tab once daily (Last dose: 10/01/2016) 4. ferrous sulfate 325 mg (65 mg iron) Oral TbEC daily 5. lutein 6 mg oral cap daily 6. [id number] DR 64 mg daily 7. metoprolol tartrate 25 mg Oral tab 1 tab 2 times per day 8. multivitamin Oral tab 1 tab daily 9. omeprazole 40 mg Oral cpDR 1 cap once daily 10. potassium chloride 10 mEq Oral TbTQ 1 tab once daily 11. prednisone 5 mg Oral tab once daily as needed during flare ups 12. valsartan 80 mg oral tab 1 tab once daily 13. Vitamin D Oral 2000 unit daily 14. Chemotherapy IV - PMHx: Pacemaker; pig valve replacement; Anemia; MDS; GERD; Hypertension; Atrial Fib; - PSHx: left ankle; Knee surgery- Left; Heart Surgery; Pacemaker Insertion; bladder resection; - Social history: Smoking status: Patient states former smoker of tobacco. No barriers to communication noted, The patient speaks fluent Singaporean, Speaks appropriately for age. - Family history: Not pertinent. - : The pt / caregiver states he / she is on anticoagulants: coumadin. have not had since Friday. Pt was on lovenox x 5 days, last dose was yesterday Home medication list is obtained from the patient, family members, [id number] import data. - Exposure Risk Screening:: None identified. Vital Signs: 10/07 17:00 BP 198 / 89; Pulse 88; Resp 18 S; Temp 96.8(O); Pulse Ox 97% on R/A; Weight 88.45 kg / dd6 195 lbs (R); Height 5 ft. 7 in. (170.18 cm) (R); 17:17 BP 189 / 86 (auto/); srm 21:40 BP 158 / 100; Pulse 50; Resp 18; Temp 97.2(O); Pulse Ox 96% on R/A; Pain 0/10; keo 21:45 BP 142 / 78 (man/); keo 17:00 Body Mass Index 30.54 (88.45 kg, 170.18 cm) dd6 MDM: 18:44 IV Saline Lock ordered. br1 18:45 Bladder Scan please ordered. br1 18:45 CBC with Diff Ordered. EDMS 18:45 BMP Ordered. EDMS 18:45 PT/INR Ordered. EDMS 18:45 PTT Ordered. EDMS 18:46 Urinalysis Ordered. EDMS 18:46 Urine Culture Ordered. EDMS 19:10 Financial registration complete. zo 19:12 [facility] Payment Agreement was scanned into [employer] and attached to record. zo 21:13 CBC with Diff Reviewed. br1 21:13 Urinalysis Reviewed. br1 21:13 PT/INR Reviewed. br1 21:13 PTT Reviewed. br1 21:31 BMP Reviewed. br1 10/08 09:08 T-Sheet-- Draft Copy was scanned into [employer] and attached to record. gb Signatures: Dispatcher [employer] EDMS Kira Kim, CHRISTIANO RN srm Marguerite Tinoco, Reg Reg Jayleen Burciaga Brian, MD MD br1 Rosalie Mixon RN RN Jennie Jenkins RN RN mlc The chart was reviewed and I authenticate all verbal orders and agree with the evaluation and treatment provided.Attachments: 10/07 19:12 [facility] Payment Agreement zo 10/08 09:08 T-Sheet-- Draft Copy gb Chart Complete MTDD
== END 2016-10-07 21:58 | disposition home or self-care (01) ==
LOC: M ED 16:57
DX: R33.9 Retention of urine, unspecified (principal); D64.9 Anemia, unspecified; K21.9 Gastro-esophageal reflux disease without esophagitis; I10 Essential (primary) hypertension; I48.91 Unspecified atrial fibrillation; D46.9 Myelodysplastic syndrome, unspecified; Z87.891 Personal history of nicotine dependence; Z79.01 Long term (current) use of anticoagulants; Z95.0 Presence of cardiac pacemaker; Z95.2 Presence of prosthetic heart valve; Z79.899 Other long term (current) drug therapy; Z88.8 Allergy status to other drugs, medicaments and biological substances

== ENCOUNTER → 2016-10-07 | Day surgery (SDC) | payer MEDICARE ==
[~2016-10-07] VITALS: Ht 167.6 cm; Wt 90.7 kg
[~2016-10-07] MED LIST changes: +ACETAMINOPHEN TAB 650MG DOSE (2X325MG) PO PRN; +LIDOCAINE 2% INJ 100 MG/5 ML SDV (FOR ANES.) As Ordered ONE; +LR 1,000 ML IV SCH; +METOCLOPRAMIDE INJ 10MG/2ML VIAL (J2765) IV PRN; +MIDAZOLAM INJ 2 MG/2 ML VIAL (J2250) As Ordered ONE; +ONDANSETRON 4MG/2ML VIAL (J2405) As Ordered ONE; +ONDANSETRON 4MG/2ML VIAL (J2405) IV PRN; +PROPOFOL 200 MG/20 ML VIAL As Ordered ONE; +ROCURONIUM BROMIDE 50 MG/5 ML VIAL As Ordered ONE; +SUGAMMADEX SODIUM 500 MG/5 ML VIAL (BRIDION) As Ordered ONE; +dexameTHASONE 4 MG/ML 1ML VIAL (J1100) As Ordered ONE; +fentaNYL 100 MCG/2 ML INJECTION (J3010) As Ordered ONE; +fentaNYL 100 MCG/2 ML INJECTION (J3010) IV PRN; +oxyBUTYnin 5 MG TAB PO PRN
[2016-10-07 08:57] LABS: INR 0.99
[2016-10-07 14:15] VITALS: BP 157/76
--- NOTE | 2016-10-08 08:03 | RO ---
DATE OF PROCEDURE: 10/07/2016 PREOPERATIVE DIAGNOSIS: Bladder tumors. POSTOPERATIVE DIAGNOSIS: Bladder tumors. PROCEDURE: Cystoscopy, transurethral resection of bladder tumor (greater than 5 cm), examination under anesthesia. SURGEON: Jose Carlos Noyola MD NATIONAL BUSINESS DIRECTOR: None. ANESTHESIA: General. 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 He was brought to the operating room today for resection of the bladder tumors. DESCRIPTION OF PROCEDURE: The patient was brought to the operating room, and general anesthesia was induced. Prophylactic antibiotics were infused. He was then placed in dorsal lithotomy position, and a bimanual digital rectal exam under anesthesia was performed. It was negative for a palpable prostate nodules and there were no palpable bladder masses. The patient was then prepped and draped in the usual sterile fashion. A rigid cystoscope was then inserted into the urethral meatus and advanced into the bladder. The bladder was then thoroughly examined with both 30 and 70 degree lenses, and at the 5-o'clock position on the bladder neck there appeared to be one papillary tumor growing on a stalk. 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 There were a few more of these lesions seen on the anterior wall as well. I then used a gyrus loop to resect all these areas. They were all sent separately. Once satisfied I resected all the abnormalities within the bladder, hemostasis was obtained with the coagulation current. Once satisfied with hemostasis, the resectoscope was removed and an #18 Sinhala Dickson catheter was inserted into the bladder. Urine drained clear at the end of the procedure. The balloon was then inflated with 10 mL of sterile water. The catheter was then connected to gravity drainage. The patient was then taken out of dorsal lithotomy position, awakened from anesthesia and transported to recovery room in stable condition. ESTIMATED BLOOD LOSS: 0 mL. COMPLICATIONS: None. SPECIMENS: Resection of anterior wall bladder tumor, resection of posterior wall bladder tumor, resection of bladder tumor at the bladder neck. PLAN: The patient will be sent home with his catheter in place. He will followup in clinic in about 1 week for catheter removal and to discuss his pathology results. JUAN MANUEL
== END | disposition home or self-care (01) ==
LOC: M SDC 08:17
PROVIDERS: ATTEND Urology
DX: D09.0 Carcinoma in situ of bladder (principal); D49.4 Neoplasm of unspecified behavior of bladder; I10 Essential (primary) hypertension; I48.91 Unspecified atrial fibrillation; D69.6 Thrombocytopenia, unspecified; I36.1 Nonrheumatic tricuspid (valve) insufficiency; K21.9 Gastro-esophageal reflux disease without esophagitis; D64.9 Anemia, unspecified; G47.9 Sleep disorder, unspecified; Z92.21 Personal history of antineoplastic chemotherapy; M79.7 Fibromyalgia; M19.90 Unspecified osteoarthritis, unspecified site; Z88.0 Allergy status to penicillin; Z88.1 Allergy status to other antibiotic agents; Z95.0 Presence of cardiac pacemaker; Z95.2 Presence of prosthetic heart valve; Z79.899 Other long term (current) drug therapy; Z79.01 Long term (current) use of anticoagulants; Z79.52 Long term (current) use of systemic steroids; Z87.891 Personal history of nicotine dependence; R33.9 Retention of urine, unspecified; Z88.8 Allergy status to other drugs, medicaments and biological substances
CPT/HCPCS: 36415; 52240; 80048; 81001; 85025; 85610; 85730; 87086; 88305; 99283; J0690; J1100; J2250; J2405; J3010

== ENCOUNTER → 2016-10-21 | Outpatient (CLI) | payer MEDICARE ==
--- NOTE | 2016-10-21 12:58 | REP ---
Chest x-ray: Two views. History: Contusion. Flail chest. Comparison chest x-ray September 28, 2016. Findings: The patient is status post prior median sternotomy. A multilead pacemaker is seen in the right heart via the left side as before. Mild cardiomegaly is observed. There is some pleuroparenchymal fibrosis along the left lateral chest wall essentially unchanged from the September 28, 2016 study. There is no evidence of pneumothorax or hydrothorax. There are several slightly displaced left posterolateral chest wall rib fractures again seen. Degenerative changes are seen in the shoulders as well. 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 Cardiomegaly with pacemaker. Left-sided rib fractures again noted. Signed by Immanuel Mann MD 10/21/2016 01:26 P
== END | disposition home or self-care (01) ==
LOC: M SMT 09:08
PROVIDERS: ATTEND Thoracic Surgery (Cardiothoracic Vascular Surgery)
DX: S22.5XXD Flail chest, subsequent encounter for fracture with routine healing (principal); S20.20XS Contusion of thorax, unspecified, sequela; W14.XXXS Fall from tree, sequela; Z95.1 Presence of aortocoronary bypass graft; I51.7 Cardiomegaly; J98.4 Other disorders of lung; Y92.9 Unspecified place or not applicable; Y93.9 Activity, unspecified; Y99.9 Unspecified external cause status

== ENCOUNTER → 2016-11-18 | Outpatient (REF) | payer MEDICARE | LOC: M SMT 16:56 | PROVIDERS: ATTEND Urology | DX: C67.9 Malignant neoplasm of bladder, unspecified (principal); Z79.899 Other long term (current) drug therapy ==

== ENCOUNTER → 2016-12-05 | Outpatient (REF) | payer MEDICARE ==
[2016-12-05 13:12] LABS: PERCENT SATURATION 35.2 % (19.7-37.4)
== END ==
LOC: M LAB REF 12:40
PROVIDERS: ATTEND Internal Medicine Medical Oncology
DX: D46.9 Myelodysplastic syndrome, unspecified (principal)
CPT/HCPCS: 51720; 82728; 83550; J9280

== ENCOUNTER → 2017-03-17 | Day surgery (SDC) | payer MEDICARE ==
[~2017-03-17] VITALS: Ht 167.6 cm; Wt 89.8 kg
[~2017-03-17] MED LIST changes: -AVEL1TAB PO; +AVEL1TAB3 PO; -CALC600T10 PO; +CALC600T31 PO; +ENOX80IN3 SC; +LIDOCAINE 2% INJ 100 MG/5 ML SDV (FOR ANES.) As Ordered ONE; +LR 1,000 ML IV ONE; +LR 1,000 ML IV SCH; +METO-346 PO; +METO25TA4 PO; -METO25TAB PO; -METO50TA2 PO; +METO50TA7 PO; +MIDAZOLAM INJ 2 MG/2 ML VIAL (J2250) As Ordered ONE; +NITR100C2 PO; +ONDANSETRON 4MG/2ML VIAL (J2405) As Ordered ONE; +ONDANSETRON 4MG/2ML VIAL (J2405) IV PRN; +PROPOFOL 200 MG/20 ML VIAL As Ordered ONE; +ROCURONIUM BROMIDE 50 MG/5 ML VIAL/SYRINGE As Ordered ONE; -SILV1CRE19 TOP; +SILV1CRE60 TOP; +SUCCINYLCHOLINE 100 MG/5 ML SYRINGE (J0330) As Ordered ONE; +SUGAMMADEX SODIUM 500 MG/5 ML VIAL (BRIDION) As Ordered ONE; -ULTR50TA PO; +ULTR50TA8 PO; +VIDA100I IM; +VIDA100I IV; +VOLT1GEL15 TD; -VOLT1GEL24 TD; -[UNRECOGNIZED DRUG - CODE] IM; -[UNRECOGNIZED DRUG - CODE] IV; +dexameTHASONE 4 MG/ML 1ML VIAL (J1100) As Ordered ONE; +fentaNYL 100 MCG/2 ML INJECTION (J3010) As Ordered ONE; +fentaNYL 100 MCG/2 ML INJECTION (J3010) IV PRN
[2017-03-17 14:30] VITALS: BP 154/90
--- NOTE | 2017-03-17 21:05 | RO ---
DATE OF PROCEDURE: 03/17/2017 PREPROCEDURE DIAGNOSIS: Bladder cancer. POSTPROCEDURE DIAGNOSIS: Bladder cancer. PROCEDURE: Cystoscopy, transurethral resection of bladder tumor (less than 2 cm), urethral meatal dilation, bimanual examination under anesthesia. SURGEON: Dr. Jose Carlos Noyola ANIMAL BOUNTY HUNTER: None. ANESTHESIA: General. OPERATIVE INDICATIONS: This is an 81-year-old male, known history of bladder cancer. He was previously diagnosed with carcinoma in situ. He recently received a 6-week course of mitomycin-C intravesical and on surveillance cystoscopy, he had an area inside the bladder that looked concerning for carcinoma in situ recurrence. He was brought to the operating room today for resection. DESCRIPTION OF PROCEDURE: The patient was brought to the operating room and general anesthesia was induced. Prophylactic antibiotics were infused. A bimanual digital rectal examination under anesthesia was performed. It was negative for palpable prostate masses. There were no palpable bladder masses and the bladder was freely mobile. The patient was then prepped and draped in the usual sterile fashion. At this point, I attempted to advance a rigid cystoscope and it would not pass as the urethral meatus was too narrow. I therefore dilated the meatus to 32Fr using curved metal sounds. Once this was done the cystoscope was advanced into the bladder. The bladder was thoroughly examined and was notable only for what appeared to potentially be carcinoma in situ on the anterior right wall of the bladder. The resectoscope was utilized to resect the area concerning for carcinoma in situ. Once that was done, I cauterized the area of resection as well as the area of the bladder around it. Hemostasis was excellent. All the specimens were then removed and sent off for pathologic analysis. At this point, the bladder was emptied of all fluid and this marked the conclusion of the procedure. The patient was then taken out of the dorsal lithotomy position, awakened from anesthesia and transported to the recovery room in stable condition. ESTIMATED BLOOD LOSS: 0 mL. COMPLICATIONS: None. SPECIMENS: Bladder tumors. PLAN: The patient will followup in the clinic in about a week to discuss pathology results. JUAN MANUEL
== END | disposition home or self-care (01) ==
LOC: M SDC 09:38
PROVIDERS: ATTEND Urology
DX: D09.0 Carcinoma in situ of bladder (principal); I10 Essential (primary) hypertension; I48.91 Unspecified atrial fibrillation; K21.9 Gastro-esophageal reflux disease without esophagitis; Z95.0 Presence of cardiac pacemaker; D64.9 Anemia, unspecified; G47.30 Sleep apnea, unspecified; M19.90 Unspecified osteoarthritis, unspecified site; D46.9 Myelodysplastic syndrome, unspecified; M51.9 Unspecified thoracic, thoracolumbar and lumbosacral intervertebral disc disorder; Z92.21 Personal history of antineoplastic chemotherapy; Z87.891 Personal history of nicotine dependence; Z91.19 Patient's noncompliance with other medical treatment and regimen; Z79.899 Other long term (current) drug therapy; Z79.01 Long term (current) use of anticoagulants
CPT/HCPCS: 52234; 88307; J0330; J0690; J1100; J2250; J2405; J3010

== ENCOUNTER → 2017-05-28 | Outpatient (REF) | payer MEDICARE ==
[~2017-05-28] MED LIST changes: -LIDOCAINE 2% INJ 100 MG/5 ML SDV (FOR ANES.) As Ordered ONE; -LR 1,000 ML IV ONE; -LR 1,000 ML IV SCH; -MIDAZOLAM INJ 2 MG/2 ML VIAL (J2250) As Ordered ONE; -ONDANSETRON 4MG/2ML VIAL (J2405) As Ordered ONE; -ONDANSETRON 4MG/2ML VIAL (J2405) IV PRN; -PROPOFOL 200 MG/20 ML VIAL As Ordered ONE; -ROCURONIUM BROMIDE 50 MG/5 ML VIAL/SYRINGE As Ordered ONE; -SUCCINYLCHOLINE 100 MG/5 ML SYRINGE (J0330) As Ordered ONE; -SUGAMMADEX SODIUM 500 MG/5 ML VIAL (BRIDION) As Ordered ONE; -dexameTHASONE 4 MG/ML 1ML VIAL (J1100) As Ordered ONE; -fentaNYL 100 MCG/2 ML INJECTION (J3010) As Ordered ONE; -fentaNYL 100 MCG/2 ML INJECTION (J3010) IV PRN
== END ==
LOC: M SMT 17:19
PROVIDERS: ATTEND Urology
DX: C67.9 Malignant neoplasm of bladder, unspecified (principal)

== ENCOUNTER → 2017-08-19 | Outpatient (REF) | payer MEDICARE ==
[~2017-08-19] MED LIST changes: +FURO20TA2 PO; +[UNRECOGNIZED DRUG - CODE] PO; +[UNRECOGNIZED DRUG - OTHER]
== END ==
LOC: M SMT 17:29
PROVIDERS: ATTEND Urology
DX: C67.9 Malignant neoplasm of bladder, unspecified (principal); R30.0 Dysuria

== ENCOUNTER 2017-09-01 09:13 | Day surgery (SDC) | payer MEDICARE ==
[~2017-09-01] VITALS: Ht 167.6 cm; Wt 89.8 kg
[~2017-09-01 09:13] MED LIST changes: +LR 1,000 ML IV ONE
[2017-09-01] MEDS ORDERED: fentaNYL 100 MCG/2 ML INJECTION (J3010) As Ordered ONE (11:24)
[2017-09-01] MEDS ORDERED: MIDAZOLAM INJ 2 MG/2 ML VIAL (J2250) As Ordered ONE (11:24)
[2017-09-01] MEDS ORDERED: ePHEDrine SULFATE 25 MG/5 ML(5MG/ML) SYRINGE As Ordered ONE (11:25)
[2017-09-01] MEDS ORDERED: PHENYLephrine HCL 500 MCG/5 ML (100MCG/ML) SYRINGE (J2370) As Ordered ONE (11:25)
[2017-09-01] MEDS ORDERED: dexameTHASONE 4 MG/ML 1ML VIAL (J1100) As Ordered ONE (11:28)
[2017-09-01] MEDS ORDERED: ONDANSETRON 4MG/2ML VIAL (J2405) As Ordered ONE (11:28)
[2017-09-01] MEDS ORDERED: ROCURONIUM BROMIDE 50 MG/5 ML VIAL As Ordered ONE (11:29)
[2017-09-01] MEDS ORDERED: PROPOFOL 200 MG/20 ML VIAL As Ordered ONE (11:36)
[2017-09-01] MEDS ORDERED: SUGAMMADEX SODIUM 500 MG/5 ML VIAL (BRIDION) As Ordered ONE (11:39)
[2017-09-01] MEDS ORDERED: HYDROmorphone HCL 1 MG/ML SYRINGE (J1170) IV PRN (12:15)
[2017-09-01] MEDS ORDERED: ACETAMINOPHEN TAB 650MG DOSE (2X325MG) PO PRN (12:15)
[2017-09-01] MEDS ORDERED: ONDANSETRON 4MG/2ML VIAL (J2405) IV PRN (12:15)
[2017-09-01] MEDS ORDERED: LR 1,000 ML IV SCH (12:15)
[2017-09-01] MEDS ORDERED: fentaNYL 100 MCG/2 ML INJECTION (J3010) IV PRN (12:15)
[2017-09-01] MEDS ORDERED: PERCOCET 5MG/325MG TAB PO PRN (12:15)
[2017-09-01 13:15] VITALS: BP 132/88
--- NOTE | 2017-09-01 18:14 | RO ---
DATE OF PROCEDURE: 09/01/2017 PREPROCEDURE DIAGNOSIS: Bladder cancer. POSTPROCEDURE DIAGNOSIS: Bladder cancer. PROCEDURE: Cystoscopy, transurethral resection of bladder tumor (less than 2 cm). SURGEON: Dr. Jose Carlos Noyola PIPE STEM ALIGNER: None. ANESTHESIA: General. OPERATIVE INDICATIONS: This is an 81-year-old male with a history of high-grade bladder cancer who has been receiving intravesical BCG treatment. On recent surveillance cystoscopy, he was found to have a small bladder tumor on the anterior wall. He was brought to the operating today for treatment. DESCRIPTION OF PROCEDURE: The patient was brought to the operating room and general anesthesia was induced. Prophylactic antibiotics were infused. He was then placed in the dorsal lithotomy position and prepped and draped in the usual sterile fashion. A rigid cystoscope was inserted into the urethral meatus and advanced to the bladder and the bladder was thoroughly examined. The only abnormality seen was a small tumor, less than a centimeter in size, on the anterior wall. At this point, a resectoscope was inserted into the urethral meatus and advanced into the bladder. The resectoscope was then utilized to resect the tumor entirely. Once done, the base of the tumor was cauterized using the coagulation current. Once there was adequate hemostasis, the specimen was removed and sent off for pathologic analysis. The bladder was emptied of all fluids. This marked the conclusion of the procedure. The patient was then taken out of the dorsal lithotomy position, awakened from anesthesia and transported to the recovery room in stable condition. Estimated blood loss: Minimal. Complications: None. Specimens: Bladder tumor. Plan: The patient will followup in the clinic in a few days for a postoperative visit and to discuss pathology results. JUAN MANUEL
== END 2017-09-01 13:20 | disposition home or self-care (01) ==
LOC: M SDC 09:13
PROVIDERS: ATTEND Urology
DX: C67.9 Malignant neoplasm of bladder, unspecified (principal); I10 Essential (primary) hypertension; K21.9 Gastro-esophageal reflux disease without esophagitis; D69.6 Thrombocytopenia, unspecified; D46.9 Myelodysplastic syndrome, unspecified; R06.83 Snoring; G47.33 Obstructive sleep apnea (adult) (pediatric); Z88.8 Allergy status to other drugs, medicaments and biological substances; Z79.899 Other long term (current) drug therapy; Z79.01 Long term (current) use of anticoagulants; Z95.0 Presence of cardiac pacemaker; Z92.21 Personal history of antineoplastic chemotherapy
CPT/HCPCS: 36415; 52234; 85610; 88305; J0690; J1100; J2250; J2370; J2405; J3010

== ENCOUNTER → 2017-12-08 | Outpatient (REF) | payer MEDICARE ==
[2017-12-08 19:37] LABS: IMMUNOGLOBULIN G 882 MG/DL (681-1648); IMMUNOGLOBULIN M 72.4 MG/DL (40-230)
[2017-12-11 00:06] LABS: FREE KAPPA LIGHT CHAINS SERUM 22.5 mg/L (3.3-19.4); FREE LAMBDA LIGHT CHAINS SERUM 19.9 mg/L (5.7-26.3); KAPPA/LAMBDA RATIO SERUM 1.13 (0.26-1.65)
== END ==
LOC: M LAB REF 17:15
DX: D46.9 Myelodysplastic syndrome, unspecified (principal)
CPT/HCPCS: 82784

== ENCOUNTER → 2017-12-23 | Outpatient (REF) | payer MEDICARE | LOC: M SMT 12:59 | DX: C67.9 Malignant neoplasm of bladder, unspecified (principal) | CPT/HCPCS: 88108 ==

== ENCOUNTER 2018-01-26 07:49 | Day surgery (SDC) | payer MEDICARE ==
[2018-01-26] MEDS: LR 1,000 ML IV (08:38)
[2018-01-26] MEDS ORDERED: fentaNYL 100 MCG/2 ML INJECTION (J3010) As Ordered (08:56)
[2018-01-26] MEDS ORDERED: MIDAZOLAM INJ 2 MG/2 ML VIAL (J2250) As Ordered (08:56)
[2018-01-26] MEDS ORDERED: ROCURONIUM BROMIDE 50 MG/5 ML VIAL As Ordered (09:15)
[2018-01-26] MEDS ORDERED: PROPOFOL 200 MG/20 ML VIAL As Ordered (09:15)
[2018-01-26] MEDS ORDERED: LIDOCAINE 2% INJ 100 MG/5 ML SDV (FOR ANES.) As Ordered (09:15)
[2018-01-26] MEDS ORDERED: PHENYLephrine HCL 500 MCG/5 ML (100MCG/ML) SYRINGE (J2370) As Ordered (10:15)
[2018-01-26] MEDS ORDERED: dexameTHASONE 4 MG/ML 1ML VIAL (J1100) As Ordered (10:17)
[2018-01-26] MEDS ORDERED: ONDANSETRON 4MG/2ML VIAL (J2405) As Ordered (10:17)
[2018-01-26] MEDS ORDERED: METOCLOPRAMIDE INJ 10MG/2ML VIAL (J2765) IV (11:30)
[2018-01-26] MEDS ORDERED: MEPERIDINE INJ 25 MG/ML VIAL (J2175) IV (11:30)
[2018-01-26] MEDS ORDERED: ONDANSETRON 4MG/2ML VIAL (J2405) IV (11:30)
[2018-01-26] MEDS ORDERED: ACETAMINOPHEN TAB 650MG DOSE (2X325MG) PO (11:30)
[2018-01-26] MEDS ORDERED: LR 1,000 ML IV (11:30)
[2018-01-26] MEDS ORDERED: fentaNYL 100 MCG/2 ML INJECTION (J3010) IV (11:30)
[2018-01-26] MEDS: PERCOCET 5MG/325MG TAB PO (12:36)
[2018-01-26] MEDS: oxyBUTYnin 5 MG TAB PO (13:07)
== END 2018-01-27 15:00 | disposition home or self-care (01) ==
LOC: M SDC 07:49
DX: D49.4 Neoplasm of unspecified behavior of bladder (principal); I48.91 Unspecified atrial fibrillation; I10 Essential (primary) hypertension; Z95.0 Presence of cardiac pacemaker; R06.02 Shortness of breath; G47.30 Sleep apnea, unspecified; D64.9 Anemia, unspecified; D46.9 Myelodysplastic syndrome, unspecified; Z92.21 Personal history of antineoplastic chemotherapy; Z85.51 Personal history of malignant neoplasm of bladder
CPT/HCPCS: 52235

== ENCOUNTER → 2018-05-12 | Outpatient (REF) | payer MEDICARE | LOC: M SMT 15:52 | DX: C67.9 Malignant neoplasm of bladder, unspecified (principal) | CPT/HCPCS: 88108 ==

== ENCOUNTER → 2018-06-09 | Outpatient (REF) | payer MEDICARE ==
[2018-06-09 19:07] LABS: INR 0.99; PROTHROMBIN TIME 13.2 SECONDS (12.1-14.4)
[2018-06-09 19:08] LABS: PARTIAL THROMBOPLASTIN TIME 30.8 SECONDS (25.4-37.6)
== END ==
LOC: M LAB REF 17:25
DX: D69.59 Other secondary thrombocytopenia (principal); D46.A Refractory cytopenia with multilineage dysplasia; D47.2 Monoclonal gammopathy
CPT/HCPCS: 85610

== ENCOUNTER → 2018-07-01 | Outpatient (CLI) | payer MEDICARE | LOC: M RAD 12:06 | DX: D47.2 Monoclonal gammopathy (principal) ==

== ENCOUNTER → 2018-07-01 | Outpatient (REF) | payer MEDICARE | LOC: M LAB REF 14:40 | DX: D46.A Refractory cytopenia with multilineage dysplasia (principal) | CPT/HCPCS: 88300 ==

== ENCOUNTER 2018-08-18 08:33 | Inpatient (IN) | payer MEDICARE ==
[2018-08-18 09:33] LABS: BASO % 0.4 % (0.0-1.0); EOS # 0.1 10^3/uL (0.0-0.50); EOS % 0.8 % (0.0-3.0); HEMATOCRIT 34.1 % (42.0-52.0); HEMOGLOBIN 11.4 g/dl (13.5-17.5); IMMATURE GRANULOCYTE % 1.7 % (0-3.0); LYMPH # 0.6 10^3/uL (1.5-4.5); LYMPH % 6.8 % (24.0-44.0); MEAN CORPUSCULAR HEMOGLOBIN 32.2 pg (27.0-33.0); MEAN CORPUSCULAR HGB CONC 33.4 g/dl (32.0-36.5); MEAN CORPUSCULAR VOLUME 96.3 fl (80.0-96.0); MONO # 0.7 10^3/uL (0.0-0.8); MONO % 8.7 % (0.0-5.0); NEUTROPHILS # 6.9 10^3/uL (1.8-7.7); NEUTROPHILS % 81.6 % (36.0-66.0); RED BLOOD COUNT 3.54 10^6/uL (4.30-6.10); RED CELL DISTRIBUTION WIDTH 18.7 % (11.5-14.5); WHITE BLOOD COUNT 8.4 10^3/uL (4.0-10.0)
[2018-08-18 09:58] LABS: ALBUMIN 3.1 GM/DL (3.2-5.2); ALKALINE PHOSPHATASE 60 U/L (45-117); ALT/SGPT 47 U/L (12-78); ANION GAP 9 MEQ/L (8-16); AST/SGOT 45 U/L (7-37); BILIRUBIN,DIRECT 0.5 MG/DL (0.0-0.2); BILIRUBIN,TOTAL 1.5 MG/DL (0.2-1.0); BLOOD UREA NITROGEN 17 MG/DL (7-18); CALCIUM LEVEL 8.3 MG/DL (8.8-10.2); CARBON DIOXIDE LEVEL 22 MEQ/L (21-32); CHLORIDE LEVEL 105 MEQ/L (98-107); CK-MB VALUE MASS < 1.0 NG/ML (<3.6); CPK CREATINE PHOSPHOKINASE 34 U/L (39-308); CREATININE FOR GFR 0.78 MG/DL (0.70-1.30); GLOMERULAR FILTRATION RATE > 60.0 (>35); GLUCOSE, FASTING 169 MG/DL (70-100); LIPASE 51 U/L (73-393); MB/CK RELATIVE INDEX 2.94 (< OR =4); POTASSIUM SERUM 3.8 MEQ/L (3.5-5.1); SODIUM LEVEL 136 MEQ/L (136-145); TOTAL PROTEIN 6.2 GM/DL (6.4-8.2); TROPONIN I < 0.02 NG/ML (< 0.10)
[2018-08-18 10:00] LABS: INFLUENZA A AMPLIFICATION NEGATIVE (NEGATIVE); INFLUENZA B AMPLIFICATION NEGATIVE (NEGATIVE)
[2018-08-18 10:05] LABS: LACTIC ACID SEPSIS PROTOCOL 2.3 MMOL/L (0.4-2.0)
[2018-08-18] MEDS: NS 1,000 ML IV ×2 (10:05→17:43)
[2018-08-18 10:17] LABS: APPEARANCE, URINE HAZY (CLEAR); BACTERIA, URINE AUTO 1+ (NEGATIVE); BILIRUBIN, URINE AUTO NEGATIVE (NEGATIVE); BLOOD, URINE BLOOD 3+ (NEGATIVE); COLOR, URINE AMBER (YELLOW); GLUCOSE, URINE (UA) AUTO NEGATIVE (NEGATIVE); KETONE, URINE AUTO NEGATIVE (NEGATIVE); LEUKOCYTE ESTERASE, URINE AUTO NEGATIVE (NEGATIVE); MUCUS, URINE LARGE (NEGATIVE); NITRITE, URINE AUTO NEGATIVE (NEGATIVE); PROTEIN, URINE AUTO 2+ mg/dL (NEGATIVE); RBC, URINE AUTO TNTC /HPF (0-3); SPECIFIC GRAVITY URINE AUTO 1.032 (1.002-1.035); SQUAMOUS EPITHELIAL CELL UR AU 1 /HPF (0-6); WBC, URINE AUTO 6 /HPF (0-3)
[2018-08-18] MEDS: VANCOMYCIN 1000 MG/20 ML VIAL (J3370) IP (10:19)
[2018-08-18 10:26] LABS: PLATELET COUNT, AUTOMATED 12 10^3/uL (150-450)
[2018-08-18 10:27] LABS: POS COUNT POS FLAG
[2018-08-18 10:28] LABS: IMMATURE PLATELET FRACTION % 16.3 % (0.0-10.9)
[2018-08-18] MEDS: VANCOMYCIN HCL 1,000 MG, VIAL MATE ADAPTER 1 EACH in D5W 250 ML IV (10:47)
[2018-08-18] MEDS ORDERED: VANCOMYCIN HCL 1,000 MG, VIAL MATE ADAPTER 1 EACH in D5W 250 ML IV (12:45)
[2018-08-18] MEDS ORDERED: ONDANSETRON 4 MG TAB (S0181) PO (12:45)
[2018-08-18] MEDS ORDERED: GENTAMICIN 120 MG in D5W 50 ML IV (12:45)
[2018-08-18] MEDS ORDERED: PROCHLORPERAZINE 5 MG TAB (S0183) PO (12:45)
[2018-08-18 14:29] LABS: ERYTHROCYTE SEDIMENTATION RATE 21 mm/hr (0-20)
[2018-08-18] MEDS ORDERED: GENTAMICIN 80 MG in APPROPRIATE DILUENT 1 EA IV (15:00)
[2018-08-18] MEDS: VANCOMYCIN HCL 750 MG, VIAL MATE ADAPTER 1 EACH in D5W 250 ML IV (15:15)
[2018-08-18] MEDS: ACETAMINOPHEN TAB 650MG DOSE (2X325MG) PO (16:00)
[2018-08-18] MEDS: GENTAMICIN 80 MG in APPROPRIATE DILUENT 1 EA IV (17:42)
[2018-08-18] MEDS: cefTRIAXone SOD 2 GM in D5W MINI-BAG PLUS 50 ML IV (19:42)
[2018-08-18] MEDS: OYSTER SHELL CALCIUM 500 MG TAB PO (21:19)
[2018-08-18] MEDS: LACTOBACILLUS ACIDOPHILUS CAP (BACID) PO (21:19)
[2018-08-18] MEDS: METOPROLOL TART 25 MG TABLET PO (21:19)
[2018-08-19] MEDS: ACETAMINOPHEN TAB 650MG DOSE (2X325MG) PO ×3 (00:33→12:55)
[2018-08-19] MEDS: VANCOMYCIN HCL 750 MG, VIAL MATE ADAPTER 1 EACH in D5W 250 ML IV (02:16)
[2018-08-19 06:38] LABS: HEMOGLOBIN 10.8 g/dl (13.5-17.5); MEAN CORPUSCULAR HGB CONC 33.8 g/dl (32.0-36.5); MEAN CORPUSCULAR VOLUME 94.7 fl (80.0-96.0); RED BLOOD COUNT 3.38 10^6/uL (4.30-6.10); RED CELL DISTRIBUTION WIDTH 18.5 % (11.5-14.5); WHITE BLOOD COUNT 6.8 10^3/uL (4.0-10.0)
[2018-08-19 06:46] LABS: PLATELET COUNT, AUTOMATED 7 10^3/uL (150-450); POS COUNT POS FLAG
[2018-08-19 07:01] LABS: ANION GAP 7 MEQ/L (8-16); BLOOD UREA NITROGEN 14 MG/DL (7-18); CALCIUM LEVEL 7.9 MG/DL (8.8-10.2); CARBON DIOXIDE LEVEL 26 MEQ/L (21-32); CHLORIDE LEVEL 105 MEQ/L (98-107); CREATININE FOR GFR 0.65 MG/DL (0.70-1.30); GLOMERULAR FILTRATION RATE > 60.0 (>35); GLUCOSE, FASTING 121 MG/DL (70-100); POTASSIUM SERUM 3.4 MEQ/L (3.5-5.1); SODIUM LEVEL 138 MEQ/L (136-145)
[2018-08-19 07:10] LABS: ERYTHROCYTE SEDIMENTATION RATE 25 mm/hr (0-20)
[2018-08-19 08:19] LABS: LACTIC ACID SEPSIS PROTOCOL 1.1 MMOL/L (0.4-2.0)
[2018-08-19] MEDS: METOPROLOL TART 25 MG TABLET PO ×3 (09:00→21:46)
[2018-08-19] MEDS: NS 1,000 ML IV ×2 (09:11→17:40)
[2018-08-19] MEDS: LOSARTAN 50 MG TAB PO (10:06)
[2018-08-19] MEDS: FERROUS SULFATE 325MG TAB PO (10:06)
[2018-08-19] MEDS: POTASSIUM CHLORIDE 10 MEQ SR TABLET PO (10:08)
[2018-08-19] MEDS: OYSTER SHELL CALCIUM 500 MG TAB PO ×2 (10:08→21:46)
[2018-08-19] MEDS: MULTIVITAMINS/MINERALS THERAP 1 TAB PO (10:09)
[2018-08-19] MEDS: predniSONE 5 MG TAB PO (10:09)
[2018-08-19] MEDS: OMEPRAZOLE 20 MG CAP PO (10:10)
[2018-08-19] MEDS: VITAMIN D 1,000 INTERNATIONAL UNITS TABLET PO (10:11)
[2018-08-19] MEDS: MAGNESIUM CHLORIDE 64 MG TABCR (SLO MAG) PO (10:14)
[2018-08-19 11:18] LABS: IMMEDIATE SPIN CROSSMATCH 1
[2018-08-19] MEDS: cefTRIAXone SOD 2 GM in D5W MINI-BAG PLUS 50 ML IV (14:07)
[2018-08-19] MEDS: traMADol 50 MG TAB PO ×2 (14:07→22:47)
[2018-08-19] MEDS: AMPICILLIN SOD 2 GM in D5W MINI-BAG PLUS 100 ML IV ×3 (15:49→22:47)
[2018-08-19] MEDS: SODIUM CHLORIDE NASAL 0.65% SPRAY BTL (OCEAN) (18:38)
[2018-08-19] MEDS: LACTOBACILLUS ACIDOPHILUS CAP (BACID) PO (21:46)
[2018-08-20] MEDS: AMPICILLIN SOD 2 GM in D5W MINI-BAG PLUS 100 ML IV ×6 (01:05→18:18)
[2018-08-20] MEDS: cefTRIAXone SOD 2 GM in D5W MINI-BAG PLUS 50 ML IV ×2 (02:07→13:41)
[2018-08-20 06:54] LABS: HEMATOCRIT 27.8 % (42.0-52.0); HEMOGLOBIN 9.4 g/dl (13.5-17.5); MEAN CORPUSCULAR HEMOGLOBIN 31.9 pg (27.0-33.0); MEAN CORPUSCULAR HGB CONC 33.8 g/dl (32.0-36.5); MEAN CORPUSCULAR VOLUME 94.2 fl (80.0-96.0); RED BLOOD COUNT 2.95 10^6/uL (4.30-6.10); RED CELL DISTRIBUTION WIDTH 17.8 % (11.5-14.5); WHITE BLOOD COUNT 5.7 10^3/uL (4.0-10.0)
[2018-08-20 06:55] LABS: PLATELET COUNT, AUTOMATED 15 10^3/uL (150-450); POS COUNT POS FLAG
[2018-08-20 06:56] LABS: IMMATURE PLATELET FRACTION % 5.9 % (0.0-10.9)
[2018-08-20 07:15] LABS: ERYTHROCYTE SEDIMENTATION RATE 30 mm/hr (0-20)
[2018-08-20 07:35] LABS: ALBUMIN 2.3 GM/DL (3.2-5.2); ALBUMIN/GLOBULIN RATIO 0.72 (1.00-1.93); ALKALINE PHOSPHATASE 50 U/L (45-117); ALT/SGPT 32 U/L (12-78); ANION GAP 9 MEQ/L (8-16); AST/SGOT 25 U/L (7-37); BILIRUBIN,TOTAL 0.5 MG/DL (0.2-1.0); BLOOD UREA NITROGEN 13 MG/DL (7-18); CALCIUM LEVEL 7.9 MG/DL (8.8-10.2); CARBON DIOXIDE LEVEL 25 MEQ/L (21-32); CHLORIDE LEVEL 104 MEQ/L (98-107); CREATININE FOR GFR 0.51 MG/DL (0.70-1.30); GLOMERULAR FILTRATION RATE > 60.0 (>35); GLUCOSE, FASTING 112 MG/DL (70-100); POTASSIUM SERUM 3.3 MEQ/L (3.5-5.1); SODIUM LEVEL 138 MEQ/L (136-145); TOTAL PROTEIN 5.5 GM/DL (6.4-8.2)
[2018-08-20] MEDS: PREVNAR 13 VACCINE SYRINGE (CPT CODE:90670) IM (09:00)
[2018-08-20] MEDS: MULTIVITAMINS/MINERALS THERAP 1 TAB PO (09:31)
[2018-08-20] MEDS: predniSONE 5 MG TAB PO (09:31)
[2018-08-20] MEDS: POTASSIUM CHLORIDE 10 MEQ SR TABLET PO ×2 (09:32→13:40)
[2018-08-20] MEDS: OMEPRAZOLE 20 MG CAP PO (09:33)
[2018-08-20] MEDS: OYSTER SHELL CALCIUM 500 MG TAB PO ×2 (09:34→20:05)
[2018-08-20] MEDS: MAGNESIUM GLUCONATE 500 MG TAB PO ×2 (09:34→20:05)
[2018-08-20] MEDS: VITAMIN D 1,000 INTERNATIONAL UNITS TABLET PO (09:34)
[2018-08-20] MEDS: LOSARTAN 50 MG TAB PO (09:36)
[2018-08-20] MEDS: FERROUS SULFATE 325MG TAB PO (09:36)
[2018-08-20] MEDS: METOPROLOL TART 25 MG TABLET PO ×2 (09:37→20:05)
[2018-08-20] MEDS: traMADol 50 MG TAB PO ×2 (10:52→20:04)
[2018-08-20 16:36] LABS: IMMEDIATE SPIN CROSSMATCH 1
[2018-08-20] MEDS: LACTOBACILLUS ACIDOPHILUS CAP (BACID) PO (20:03)
[2018-08-20 20:42] LABS: PLATELET COUNT, AUTOMATED 34 10^3/uL (150-450)
[2018-08-20 23:02] LABS: TYPE AND SCREEN 1
[2018-08-21] MEDS: NORCO, ANEXSIA 5/325MG TABLET (HYDROcodone/ACETAMINOPHEN) PO (00:03)
[2018-08-21] MEDS: cefTRIAXone SOD 2 GM in D5W MINI-BAG PLUS 50 ML IV ×3 (02:37→15:42)
[2018-08-21] MEDS: AMPICILLIN SOD 2 GM in D5W MINI-BAG PLUS 100 ML IV ×6 (02:42→23:29)
[2018-08-21 06:58] LABS: HEMATOCRIT 30.3 % (42.0-52.0); HEMOGLOBIN 10.2 g/dl (13.5-17.5); MEAN CORPUSCULAR HEMOGLOBIN 31.6 pg (27.0-33.0); MEAN CORPUSCULAR HGB CONC 33.7 g/dl (32.0-36.5); MEAN CORPUSCULAR VOLUME 93.8 fl (80.0-96.0); RED BLOOD COUNT 3.23 10^6/uL (4.30-6.10); RED CELL DISTRIBUTION WIDTH 17.7 % (11.5-14.5); WHITE BLOOD COUNT 6.8 10^3/uL (4.0-10.0)
[2018-08-21 06:59] LABS: IMMATURE PLATELET FRACTION % 3.7 % (0.0-10.9); PLATELET COUNT, AUTOMATED 30 10^3/uL (150-450); POS COUNT POS FLAG
[2018-08-21 07:15] LABS: ALBUMIN 2.8 GM/DL (3.2-5.2); ALBUMIN/GLOBULIN RATIO 0.72 (1.00-1.93); ALKALINE PHOSPHATASE 64 U/L (45-117); ALT/SGPT 45 U/L (12-78); ANION GAP 10 MEQ/L (8-16); AST/SGOT 37 U/L (7-37); BILIRUBIN,TOTAL 0.6 MG/DL (0.2-1.0); BLOOD UREA NITROGEN 12 MG/DL (7-18); CALCIUM LEVEL 8.6 MG/DL (8.8-10.2); CARBON DIOXIDE LEVEL 26 MEQ/L (21-32); CHLORIDE LEVEL 103 MEQ/L (98-107); CREATININE FOR GFR 0.58 MG/DL (0.70-1.30); GLOMERULAR FILTRATION RATE > 60.0 (>35); GLUCOSE, FASTING 98 MG/DL (70-100); POTASSIUM SERUM 3.7 MEQ/L (3.5-5.1); SODIUM LEVEL 139 MEQ/L (136-145); TOTAL PROTEIN 6.7 GM/DL (6.4-8.2)
[2018-08-21 07:20] LABS: ERYTHROCYTE SEDIMENTATION RATE 43 mm/hr (0-20)
[2018-08-21] MEDS: MULTIVITAMINS/MINERALS THERAP 1 TAB PO (08:36)
[2018-08-21] MEDS: VITAMIN D 1,000 INTERNATIONAL UNITS TABLET PO (08:37)
[2018-08-21] MEDS: FERROUS SULFATE 325MG TAB PO (08:37)
[2018-08-21] MEDS: predniSONE 5 MG TAB PO (08:37)
[2018-08-21] MEDS: POTASSIUM CHLORIDE 10 MEQ SR TABLET PO (08:37)
[2018-08-21] MEDS: LOSARTAN 50 MG TAB PO (08:37)
[2018-08-21] MEDS: MAGNESIUM GLUCONATE 500 MG TAB PO ×2 (08:37→23:28)
[2018-08-21] MEDS: OYSTER SHELL CALCIUM 500 MG TAB PO ×2 (08:37→23:28)
[2018-08-21] MEDS: METOPROLOL TART 25 MG TABLET PO ×2 (08:38→23:28)
[2018-08-21] MEDS: OMEPRAZOLE 20 MG CAP PO (08:38)
[2018-08-21] MEDS ORDERED: PERCOCET 5MG/325MG TAB PO (09:00)
[2018-08-21] MEDS ORDERED: LIDOCAINE 1% MDV 20ML VIAL As Ordered (14:51)
[2018-08-21] MEDS: ACETAMINOPHEN TAB 650MG DOSE (2X325MG) PO ×2 (15:44→23:27)
[2018-08-21 16:38] LABS: APPEARANCE, BODY FLUID HAZY (CLEAR); BF MONONUCLEAR CELL % 2.2 % (0-0); RBC BODY FLUID 3 10^3/uL (<2); SOURCE, BODY FLUID RT SHOULDER; SYNOVIAL FLUID COLOR YELLOW (YELLOW); WBC BODY FLUID 14883 /uL (0-10)
[2018-08-21 16:39] LABS: BF DIFF IF INDICATED? YES (NO); BF POLYMORPHONUCLEAR CELL % 97.8 % (0-0); CRYSTALS, BODY FLUID NONE SEEN (NONE SEEN); SOURCE, BODY FLUID CRYSTALS RT SHOULDER; SOURCE, BODY FLUID URIC ACID RT SHOULDER; URIC ACID, BODY FLUID 2.5 MG/DL (NOT ESTABLISHED)
[2018-08-21] MEDS ORDERED: LIDOCAINE 2% INJ 100 MG/5 ML SDV (FOR ANES.) As Ordered (19:58)
[2018-08-21] MEDS ORDERED: PROPOFOL 500 MG/50 ML VIAL As Ordered (19:58)
[2018-08-21] MEDS ORDERED: MIDAZOLAM INJ 2 MG/2 ML VIAL (J2250) As Ordered (19:58)
[2018-08-21] MEDS ORDERED: fentaNYL 100 MCG/2 ML INJECTION (J3010) As Ordered (19:58)
[2018-08-21] MEDS: LIDOCAINE VISCOUS 2% SOLN 15ML UDC As Ordered (20:31)
[2018-08-21] MEDS: CETACAINE SPRAY 5GM As Ordered (21:48)
[2018-08-21] MEDS ORDERED: ONDANSETRON 4MG/2ML VIAL (J2405) IV (22:30)
[2018-08-21] MEDS: LACTOBACILLUS ACIDOPHILUS CAP (BACID) PO (23:28)
[2018-08-22] MEDS: IBUPROFEN 600 MG TAB PO (02:06)
[2018-08-22] MEDS: cefTRIAXone SOD 2 GM in D5W MINI-BAG PLUS 50 ML IV ×2 (02:06→14:24)
[2018-08-22] MEDS: AMPICILLIN SOD 2 GM in D5W MINI-BAG PLUS 100 ML IV ×6 (03:04→22:06)
[2018-08-22] MEDS: PERCOCET 5MG/325MG TAB PO ×2 (04:15→20:17)
[2018-08-22 05:40] LABS: HEMOGLOBIN 9.6 g/dl (13.5-17.5); MEAN CORPUSCULAR HEMOGLOBIN 31.7 pg (27.0-33.0); MEAN CORPUSCULAR HGB CONC 34.3 g/dl (32.0-36.5); MEAN CORPUSCULAR VOLUME 92.4 fl (80.0-96.0); RED BLOOD COUNT 3.03 10^6/uL (4.30-6.10); RED CELL DISTRIBUTION WIDTH 17.4 % (11.5-14.5); WHITE BLOOD COUNT 5.8 10^3/uL (4.0-10.0)
[2018-08-22 05:48] LABS: PLATELET COUNT, AUTOMATED 23 10^3/uL (150-450); POS COUNT POS FLAG
[2018-08-22 06:11] LABS: ALBUMIN 2.6 GM/DL (3.2-5.2); ALBUMIN/GLOBULIN RATIO 0.67 (1.00-1.93); ALKALINE PHOSPHATASE 66 U/L (45-117); ALT/SGPT 55 U/L (12-78); ANION GAP 8 MEQ/L (8-16); AST/SGOT 44 U/L (7-37); BILIRUBIN,TOTAL 0.5 MG/DL (0.2-1.0); BLOOD UREA NITROGEN 13 MG/DL (7-18); CALCIUM LEVEL 8.2 MG/DL (8.8-10.2); CARBON DIOXIDE LEVEL 25 MEQ/L (21-32); CHLORIDE LEVEL 106 MEQ/L (98-107); CREATININE FOR GFR 0.63 MG/DL (0.70-1.30); GLOMERULAR FILTRATION RATE > 60.0 (>35); GLUCOSE, FASTING 154 MG/DL (70-100); POTASSIUM SERUM 3.2 MEQ/L (3.5-5.1); SODIUM LEVEL 139 MEQ/L (136-145); TOTAL PROTEIN 6.5 GM/DL (6.4-8.2)
[2018-08-22 06:16] LABS: ERYTHROCYTE SEDIMENTATION RATE 52 mm/hr (0-20)
[2018-08-22] MEDS: METOPROLOL TART 25 MG TABLET PO ×2 (09:10→20:17)
[2018-08-22] MEDS: LOSARTAN 50 MG TAB PO (09:10)
[2018-08-22] MEDS: POTASSIUM CHLORIDE 10 MEQ SR TABLET PO ×2 (09:11→13:20)
[2018-08-22] MEDS: OMEPRAZOLE 20 MG CAP PO (09:11)
[2018-08-22] MEDS: VITAMIN D 1,000 INTERNATIONAL UNITS TABLET PO (09:11)
[2018-08-22] MEDS: FERROUS SULFATE 325MG TAB PO (09:11)
[2018-08-22] MEDS: MAGNESIUM GLUCONATE 500 MG TAB PO ×2 (09:11→20:17)
[2018-08-22] MEDS: MULTIVITAMINS/MINERALS THERAP 1 TAB PO (09:11)
[2018-08-22] MEDS: OYSTER SHELL CALCIUM 500 MG TAB PO ×2 (09:11→20:16)
[2018-08-22] MEDS: predniSONE 5 MG TAB PO (09:11)
[2018-08-22] MEDS: traMADol 50 MG TAB PO (11:24)
[2018-08-22] MEDS: LACTOBACILLUS ACIDOPHILUS CAP (BACID) PO (20:17)
[2018-08-23] MEDS: traMADol 50 MG TAB PO ×3 (02:08→20:47)
[2018-08-23] MEDS: cefTRIAXone SOD 2 GM in D5W MINI-BAG PLUS 50 ML IV ×2 (02:08→14:00)
[2018-08-23] MEDS: AMPICILLIN SOD 2 GM in D5W MINI-BAG PLUS 100 ML IV ×6 (03:05→22:20)
[2018-08-23 05:41] LABS: HEMATOCRIT 27.3 % (42.0-52.0); HEMOGLOBIN 9.2 g/dl (13.5-17.5); MEAN CORPUSCULAR HEMOGLOBIN 31.1 pg (27.0-33.0); MEAN CORPUSCULAR HGB CONC 33.7 g/dl (32.0-36.5); MEAN CORPUSCULAR VOLUME 92.2 fl (80.0-96.0); RED BLOOD COUNT 2.96 10^6/uL (4.30-6.10); RED CELL DISTRIBUTION WIDTH 17.2 % (11.5-14.5); WHITE BLOOD COUNT 7.1 10^3/uL (4.0-10.0)
[2018-08-23 05:43] LABS: PLATELET COUNT, AUTOMATED 26 10^3/uL (150-450); POS COUNT POS FLAG; POSITIVE MORPH POS FLAG
[2018-08-23 05:44] LABS: SUSPECT SAMPLE POS FLAG
[2018-08-23 05:45] LABS: IMMATURE PLATELET FRACTION % 8.2 % (0.0-10.9)
[2018-08-23 06:10] LABS: ALBUMIN 2.6 GM/DL (3.2-5.2); ALBUMIN/GLOBULIN RATIO 0.65 (1.00-1.93); ALKALINE PHOSPHATASE 61 U/L (45-117); ALT/SGPT 46 U/L (12-78); ANION GAP 7 MEQ/L (8-16); AST/SGOT 26 U/L (7-37); BILIRUBIN,TOTAL 0.3 MG/DL (0.2-1.0); BLOOD UREA NITROGEN 15 MG/DL (7-18); CALCIUM LEVEL 8.2 MG/DL (8.8-10.2); CARBON DIOXIDE LEVEL 27 MEQ/L (21-32); CHLORIDE LEVEL 106 MEQ/L (98-107); CREATININE FOR GFR 0.68 MG/DL (0.70-1.30); GLOMERULAR FILTRATION RATE > 60.0 (>35); GLUCOSE, FASTING 125 MG/DL (70-100); POTASSIUM SERUM 3.8 MEQ/L (3.5-5.1); SODIUM LEVEL 140 MEQ/L (136-145); TOTAL PROTEIN 6.6 GM/DL (6.4-8.2)
[2018-08-23] MEDS: PERCOCET 5MG/325MG TAB PO ×2 (06:37→15:48)
[2018-08-23] MEDS: MAGNESIUM GLUCONATE 500 MG TAB PO ×2 (09:38→20:46)
[2018-08-23] MEDS: MULTIVITAMINS/MINERALS THERAP 1 TAB PO (09:38)
[2018-08-23] MEDS: VITAMIN D 1,000 INTERNATIONAL UNITS TABLET PO (09:38)
[2018-08-23] MEDS: OMEPRAZOLE 20 MG CAP PO (09:38)
[2018-08-23] MEDS: FERROUS SULFATE 325MG TAB PO (09:39)
[2018-08-23] MEDS: OYSTER SHELL CALCIUM 500 MG TAB PO ×2 (09:39→20:47)
[2018-08-23] MEDS: METOPROLOL TART 25 MG TABLET PO ×2 (09:39→20:48)
[2018-08-23] MEDS: LOSARTAN 50 MG TAB PO (09:39)
[2018-08-23] MEDS: predniSONE 5 MG TAB PO (09:39)
[2018-08-23] MEDS: POTASSIUM CHLORIDE 10 MEQ SR TABLET PO (09:41)
[2018-08-23] MEDS: predniSONE 20 MG TAB PO (14:15)
[2018-08-23] MEDS: LACTOBACILLUS ACIDOPHILUS CAP (BACID) PO (20:46)
[2018-08-24] MEDS: cefTRIAXone SOD 2 GM in D5W MINI-BAG PLUS 50 ML IV ×2 (01:22→15:32)
[2018-08-24] MEDS: AMPICILLIN SOD 2 GM in D5W MINI-BAG PLUS 100 ML IV ×6 (02:29→22:50)
[2018-08-24 06:06] LABS: HEMATOCRIT 28.7 % (42.0-52.0); HEMOGLOBIN 9.6 g/dl (13.5-17.5); MEAN CORPUSCULAR HGB CONC 33.4 g/dl (32.0-36.5); MEAN CORPUSCULAR VOLUME 92.6 fl (80.0-96.0); RED CELL DISTRIBUTION WIDTH 17.2 % (11.5-14.5); WHITE BLOOD COUNT 5.7 10^3/uL (4.0-10.0)
[2018-08-24 06:17] LABS: PLATELET COUNT, AUTOMATED 30 10^3/uL (150-450)
[2018-08-24 06:18] LABS: POSITIVE MORPH POS FLAG; SUSPECT SAMPLE POS FLAG
[2018-08-24 06:19] LABS: IMMATURE PLATELET FRACTION % 10.8 % (0.0-10.9); PLATELET F 2.9
[2018-08-24 06:34] LABS: ALBUMIN 2.7 GM/DL (3.2-5.2); ALBUMIN/GLOBULIN RATIO 0.66 (1.00-1.93); ALKALINE PHOSPHATASE 60 U/L (45-117); ALT/SGPT 38 U/L (12-78); ANION GAP 7 MEQ/L (8-16); AST/SGOT 21 U/L (7-37); BILIRUBIN,TOTAL 0.3 MG/DL (0.2-1.0); BLOOD UREA NITROGEN 11 MG/DL (7-18); CALCIUM LEVEL 8.5 MG/DL (8.8-10.2); CARBON DIOXIDE LEVEL 28 MEQ/L (21-32); CHLORIDE LEVEL 102 MEQ/L (98-107); GLOMERULAR FILTRATION RATE > 60.0 (>35); GLUCOSE, FASTING 116 MG/DL (70-100); POTASSIUM SERUM 4.3 MEQ/L (3.5-5.1); SODIUM LEVEL 137 MEQ/L (136-145); TOTAL PROTEIN 6.8 GM/DL (6.4-8.2)
[2018-08-24 08:28] LABS: BODY FLUID RHEUMATOID SCREEN NEGATIVE (NEGATIVE)
[2018-08-24] MEDS: OMEPRAZOLE 20 MG CAP PO (11:03)
[2018-08-24] MEDS: OYSTER SHELL CALCIUM 500 MG TAB PO ×2 (11:03→20:13)
[2018-08-24] MEDS: MAGNESIUM GLUCONATE 500 MG TAB PO ×2 (11:03→20:14)
[2018-08-24] MEDS: FERROUS SULFATE 325MG TAB PO (11:04)
[2018-08-24] MEDS: MULTIVITAMINS/MINERALS THERAP 1 TAB PO (11:04)
[2018-08-24] MEDS: VITAMIN D 1,000 INTERNATIONAL UNITS TABLET PO (11:04)
[2018-08-24] MEDS: predniSONE 20 MG TAB PO (11:04)
[2018-08-24] MEDS: POTASSIUM CHLORIDE 10 MEQ SR TABLET PO (11:04)
[2018-08-24] MEDS: LOSARTAN 50 MG TAB PO (11:06)
[2018-08-24] MEDS: METOPROLOL TART 25 MG TABLET PO ×2 (11:07→20:14)
[2018-08-24] MEDS ORDERED: LIDOCAINE 1% MDV 20ML VIAL As Ordered (14:33)
[2018-08-24] MEDS ORDERED: SODIUM CHLORIDE 0.9% INJ 10 ML SYR IV (17:15)
[2018-08-24] MEDS: SODIUM CHLORIDE 0.9% INJ 10 ML SYR IV (18:59)
[2018-08-24] MEDS: LACTOBACILLUS ACIDOPHILUS CAP (BACID) PO (20:14)
[2018-08-24] MEDS: PERCOCET 5MG/325MG TAB PO (20:15)
[2018-08-25] MEDS: cefTRIAXone SOD 2 GM in D5W MINI-BAG PLUS 50 ML IV (01:55)
[2018-08-25] MEDS: AMPICILLIN SOD 2 GM in D5W MINI-BAG PLUS 100 ML IV ×3 (03:00→12:17)
[2018-08-25] MEDS: SODIUM CHLORIDE 0.9% INJ 10 ML SYR IV (05:19)
[2018-08-25 05:47] LABS: HEMATOCRIT 26.2 % (42.0-52.0); HEMOGLOBIN 8.7 g/dl (13.5-17.5); MEAN CORPUSCULAR HEMOGLOBIN 31.1 pg (27.0-33.0); MEAN CORPUSCULAR HGB CONC 33.2 g/dl (32.0-36.5); MEAN CORPUSCULAR VOLUME 93.6 fl (80.0-96.0); WHITE BLOOD COUNT 4.7 10^3/uL (4.0-10.0)
[2018-08-25 05:49] LABS: PLATELET COUNT, AUTOMATED 32 10^3/uL (150-450)
[2018-08-25 06:11] LABS: ALBUMIN 2.5 GM/DL (3.2-5.2); ALBUMIN/GLOBULIN RATIO 0.81 (1.00-1.93); ALKALINE PHOSPHATASE 54 U/L (45-117); ALT/SGPT 41 U/L (12-78); ANION GAP 5 MEQ/L (8-16); AST/SGOT 24 U/L (7-37); BILIRUBIN,TOTAL 0.3 MG/DL (0.2-1.0); BLOOD UREA NITROGEN 13 MG/DL (7-18); CALCIUM LEVEL 8.1 MG/DL (8.8-10.2); CARBON DIOXIDE LEVEL 31 MEQ/L (21-32); CHLORIDE LEVEL 105 MEQ/L (98-107); CREATININE FOR GFR 0.57 MG/DL (0.70-1.30); GLOMERULAR FILTRATION RATE > 60.0 (>35); GLUCOSE, FASTING 95 MG/DL (70-100); POTASSIUM SERUM 3.7 MEQ/L (3.5-5.1); SODIUM LEVEL 141 MEQ/L (136-145); TOTAL PROTEIN 5.6 GM/DL (6.4-8.2)
[2018-08-25] MEDS: FERROUS SULFATE 325MG TAB PO (07:53)
[2018-08-25] MEDS: VITAMIN D 1,000 INTERNATIONAL UNITS TABLET PO (07:53)
[2018-08-25] MEDS: MULTIVITAMINS/MINERALS THERAP 1 TAB PO (07:53)
[2018-08-25] MEDS: OYSTER SHELL CALCIUM 500 MG TAB PO (07:53)
[2018-08-25] MEDS: MAGNESIUM GLUCONATE 500 MG TAB PO (07:53)
[2018-08-25] MEDS: OMEPRAZOLE 20 MG CAP PO (07:53)
[2018-08-25] MEDS: POTASSIUM CHLORIDE 10 MEQ SR TABLET PO (07:53)
[2018-08-25] MEDS: predniSONE 20 MG TAB PO (07:54)
[2018-08-25] MEDS: METOPROLOL TART 25 MG TABLET PO (07:57)
[2018-08-25] MEDS: LOSARTAN 50 MG TAB PO (07:58)
[2018-08-25] MEDS ORDERED: VANCOMYCIN HCL 1,000 MG, VIAL MATE ADAPTER 1 EACH in D5W 250 ML IV (14:00)
== END 2018-08-25 15:05 | disposition home health service (06) | DRG 872 ==
LOC: M ED 08:33 → M ED INP 12:50 → M MSPAV 16:58
PROVIDERS: Internal Medicine
PROC: B246ZZ4 Ultrasonography of Right and Left Heart, Transesophageal (ICD-10-PCS; principal; 2018-08-21 17:00)
PROC: 02HV33Z Insertion of Infusion Device into Superior Vena Cava, Percutaneous Approach (ICD-10-PCS; 2018-08-21 21:37)
PROC: 0R9J3ZX Drainage of Right Shoulder Joint, Percutaneous Approach, Diagnostic (ICD-10-PCS; 2018-08-21 21:37)
PROC: 30233R1 Transfusion of Nonautologous Platelets into Peripheral Vein, Percutaneous Approach (ICD-10-PCS; 2018-08-21 21:37)
PROC: 30233K1 Transfusion of Nonautologous Frozen Plasma into Peripheral Vein, Percutaneous Approach (ICD-10-PCS; 2018-08-21 21:37)
DX: R78.81 Bacteremia (principal); E87.2 Acidosis; D46.9 Myelodysplastic syndrome, unspecified; D69.6 Thrombocytopenia, unspecified; I10 Essential (primary) hypertension; K44.9 Diaphragmatic hernia without obstruction or gangrene; E55.9 Vitamin D deficiency, unspecified; M19.011 Primary osteoarthritis, right shoulder; M19.90 Unspecified osteoarthritis, unspecified site; D50.9 Iron deficiency anemia, unspecified; K21.9 Gastro-esophageal reflux disease without esophagitis; Z85.51 Personal history of malignant neoplasm of bladder; Z79.52 Long term (current) use of systemic steroids; Z79.899 Other long term (current) drug therapy; Z95.3 Presence of xenogenic heart valve; Z95.0 Presence of cardiac pacemaker; Z87.891 Personal history of nicotine dependence; Z88.8 Allergy status to other drugs, medicaments and biological substances

== ENCOUNTER 2018-09-01 12:09 | Emergency (ER) | payer MEDICARE ==
[~2018-09-01] VITALS: Ht 170.2 cm; Wt 83.2 kg
[~2018-09-01 12:09] MED LIST changes: +ALEV220T26 PO; +IPRA0.00 NEB; -IPRASOL4 NEB; +KLOR10TA76 PO; +LOSA100T50 PO; +LOSA25TA14 PO; -LR 1,000 ML IV ONE; +ONDA8TAB7 PO; -POTA10CA PO; +PRED10TA2 PO; +PROC10TA4 PO; +TRAM50TA2; +TRAM50TA2 PO; +ZOFR4TAB14 PO; -ZOFR4TAB3 PO; +ZOFR8TAB24 PO
[2018-09-01] MEDS ORDERED: MORPHINE 2 MG/ML 1ML SYRINGE (J2270) IV ONE ×2 (13:00→19:15)
[2018-09-01 14:43] LABS: BASO # 0.1 10^3/uL (0.0-0.2); BASO % 1.4 % (0.0-1.0); EOS # 0.1 10^3/uL (0.0-0.50); EOS % 2.2 % (0.0-3.0); HEMATOCRIT 34.1 % (42.0-52.0); HEMOGLOBIN 11.4 g/dl (13.5-17.5); LYMPH # 0.8 10^3/uL (1.5-4.5); LYMPH % 22.2 % (24.0-44.0); MEAN CORPUSCULAR HEMOGLOBIN 30.8 pg (27.0-33.0); MEAN CORPUSCULAR HGB CONC 33.4 g/dl (32.0-36.5); MEAN CORPUSCULAR VOLUME 92.2 fl (80.0-96.0); MONO # 0.6 10^3/uL (0.0-0.8); MONO % 15.7 % (0.0-5.0); NEUTROPHILS # 2.1 10^3/uL (1.8-7.7); NEUTROPHILS % 56.6 % (36.0-66.0); WHITE BLOOD COUNT 3.7 10^3/uL (4.0-10.0)
[2018-09-01 15:22] LABS: ALBUMIN 3.3 GM/DL (3.2-5.2); ALT/SGPT 31 U/L (12-78); BILIRUBIN,DIRECT 0.3 MG/DL (0.0-0.2); BILIRUBIN,TOTAL 1.3 MG/DL (0.2-1.0); BLOOD UREA NITROGEN 15 MG/DL (7-18); CARBON DIOXIDE LEVEL 24 MEQ/L (21-32); CHLORIDE LEVEL 103 MEQ/L (98-107); CREATININE FOR GFR 0.79 MG/DL (0.70-1.30); GLOMERULAR FILTRATION RATE > 60.0 (>35); GLUCOSE, FASTING 111 MG/DL (70-100); POTASSIUM SERUM 4.9 MEQ/L (3.5-5.1); SODIUM LEVEL 134 MEQ/L (136-145); TOTAL PROTEIN 8.1 GM/DL (6.4-8.2)
[2018-09-01 15:26] LABS: PLATELET COUNT, AUTOMATED 84 10^3/uL (150-450)
[2018-09-01 15:38] LABS: ERYTHROCYTE SEDIMENTATION RATE 24 mm/hr (0-20)
[2018-09-01] MEDS: NS 1,000 ML IV SCH ×3 (16:30→20:16)
[2018-09-01] MEDS ORDERED: VANCOMYCIN HCL 1,000 MG, VIAL MATE ADAPTER 1 EACH in D5W 250 ML IV ONE (16:45)
[2018-09-01] MEDS ORDERED: ISOVUE-370 76% 100ML VIAL (Q9967) As Ordered ONE (16:58)
[2018-09-01 17:51] LABS: URIC ACID 3.2 MG/DL (3.5-7.2)
[2018-09-01] MEDS ORDERED: SODIUM CHLORIDE 0.9% INJ 10 ML SYR IV ONE (18:00)
--- NOTE | 2018-09-01 19:13 | REPVR ---
EXAM: CT Right Upper Extremity With Contrast, Wrist EXAM DATE/TIME: 09/01/2018 6:45 PM CLINICAL HISTORY: 82 years old, male; Pain; Wrist; Right; Additional info: CT right wrist and shoulder with iv contrast TECHNIQUE: CT of the Right upper extremity with intravenous contrast was performed. Exam focused on the wrist. Coronal and sagittal reformatted images were created and reviewed. CONTRAST: 100 ml of ISOVUE 370 administered intravenously. COMPARISON: No relevant prior studies available. FINDINGS: Limitations: The right distal forearm, wrist and hand were scanned with the patient in a supine position and the upper extremity draped on the right anterior abdomen. This results in beam hardening artifact which limits this examination. Bones/joints: There are degenerative arthritic changes within the joints of the wrist. No displaced fracture is identified. The lunate appears dorsally angled which may be seen with dorsal instability pattern. Correlate with conventional radiographs. No darwin bone destruction is identified. Soft tissues: There is apparent swelling of the wrist soft tissues. There is nonspecific swelling of the soft tissues of the wrist and hand. These changes may be seen with edema, hemorrhage as well as cellulitis. No definite nonenhancing fluid collection is identified to indicate abscess. Vasculature: The ulnar and radial arteries appear calcified. IMPRESSION: 1. Swelling of the wrist soft tissues. These changes are nonspecific and may be seen with edema, hemorrhage as well as cellulitis. No definite nonenhancing fluid collection is identified to indicate abscess. If there is a continued clinical concern for abscess then consider assessment with MRI. 2. Degenerative arthrosis and possible dorsal wrist instability pattern. Correlate with conventional radiographs. No displaced fracture or definite evidence of bone destruction is identified. If there is a continued clinical concern for osteomyelitis then consider evaluation with MRI or radionuclide labeled white blood cell scan. Electronically signed by: Hussain Menendez On 09/01/2018 19:12:30 PM
--- NOTE | 2018-09-01 19:25 | REPVR ---
EXAM: CT Right Upper Extremity With Contrast, Shoulder EXAM DATE/TIME: 09/01/2018 6:45 PM CLINICAL HISTORY: 82 years old, male; Pain; Shoulder; Right; Additional info: CT right wrist and shoulder with iv contrast TECHNIQUE: CT of the Right upper extremity with intravenous contrast was performed. Exam focused on the Shoulder All CT scans at this facility use at least one of these dose optimization techniques: automated exposure control; mA and/or kV adjustment per patient size (includes targeted exams where dose is matched to clinical indication); or iterative reconstruction. Coronal and sagittal reformatted images were created and reviewed. CONTRAST: 100 ml of ISOVUE 370 administered intravenously. COMPARISON: CT-Shoulder WITHOUT CONTRAST 08/20/2018 1:53 PM FINDINGS: Tubes, catheters and devices: A dual-lead cardiac pacer is present. Bones/joints: There is moderate hypertrophic arthritis of the right acromioclavicular joint. There is a tiny anterior acromial spur. There are degenerative arthritic changes within the glenohumeral joint. The humeral acromial space is borderline decreased measuring 5 mm. A 7 mm diameter ossification superior to the right humeral head (coronal reformatted images 25 through 28) either represents an intra-articular loose body or heterotopic ossification of the supraspinatus tendon related to prior trauma. Calcification at the inferior edge of the glenohumeral joint on coronal reformatted images 30 through 35 likely represent chondrocalcinosis. There are cystic resorptions within the greater tuberosity and lesser tuberosity the humerus. These are likely the sequelae of chronic rotator cuff tendinopathy. No fracture or suspicious bone lesions are identified. Soft tissues: There are finding suspicious for a small fluid collection measuring 14 mm AP by 8 mm transverse by 16 mm craniocaudad adjacent to the greater tuberosity on coronal reformatted images 36-38 and axial images 18 through 21. This may be fluid within the subacromial subdeltoid bursa or possibly within a defect resulting from a torn supraspinatus tendon. Pleural space: There are noncalcified and calcified right pleural plaques. IMPRESSION: 1. 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 2. Cystic resorption within the greater tuberosity and lesser tuberosity of the humerus, likely the sequelae of chronic rotator cuff tendinopathy. These changes may also be seen with crystal deposition disease. However, no calcification is identified within these lesions. 3. Findings suspicious for small subacromial subdeltoid bursitis versus fluid within a defect from possible rotator cuff tear. Consider evaluation with conventional arthrography or CT arthrography if clinically indicated. If there is a concern for an infectious process, then evaluation with three-phase bone scan should be considered. Electronically signed by: Hussain Menendez On 09/01/2018 19:25:25 PM
[2018-09-01 19:35] VITALS: BP 161/89
[2018-09-01] MEDS ORDERED: methylPREDNISolone INJ 125 MG/2 ML VIAL (J2930) IV ONE ×2 (20:00→20:15)
--- NOTE | 2018-09-03 15:49 | ED PDOC ---
Post-Departure Follow-Up harman mcgovern, rui faxed formal report of ct shoulder for fu Archie Quesada MD Sep 03, 2018 15:49
[2018-10-26] MEDS ORDERED: LEVA250T13 PO (10:01)
== END 2018-09-01 20:51 | disposition home or self-care (01) ==
LOC: M ED 12:09
DX: M19.90 Unspecified osteoarthritis, unspecified site (principal); Z95.0 Presence of cardiac pacemaker; Z87.891 Personal history of nicotine dependence
CPT/HCPCS: 73202; 80048; 80076; 83605; 84550; 85025; 85049; 85055; 85652; 86140; 87040; 96374; 96375; 96376; 99283; J2270; J2930; J3370; Q9967

== ENCOUNTER → 2018-10-12 | Outpatient (REF) | payer MEDICARE ==
[~2018-10-12] MED LIST changes: +CALC600T60 PO; +CIPR250T3 PO; +LEVA250T13 PO; +LEVO250T12 PO; +MENSCAP PO; +PERC5TAB12 PO; +SENN1TAB2 PO; +XARE10TA PO
== END ==
LOC: M SMT 12:47
PROVIDERS: ATTEND Urology
DX: C67.9 Malignant neoplasm of bladder, unspecified (principal)

== ENCOUNTER 2018-10-27 12:10 | Inpatient (IN) | payer MEDICARE ==
[~2018-10-27] VITALS: Ht 162.6 cm; Wt 83.6 kg
[~2018-10-27 12:10] MED LIST changes: -ACETAMINOPHEN TAB 650MG DOSE (2X325MG) PO PRN; -BISACODYL 5 MG TAB PO PRN; -CALC600T60 PO; -CIPR250T3 PO; -HEPARIN SOD (PORCINE) 5000 UNITS/ML VIAL SC SCH; -LEVO250T12 PO; -MENSCAP PO; -MORPHINE 4 MG/ML 1ML VIAL/SYRINGE (J2270) IV PRN; -ONDANSETRON 4 MG TAB (S0181) PO PRN; -PERCOCET 5MG/325MG TAB PO PRN; -PIPERACILLIN/TAZOBACTAM SOD 2.25 GM in D5W MINI-BAG PLUS 50 ML IV SCH; -SENOKOT S TAB PO SCH; -VANCOMYCIN HCL 750 MG, VIAL MATE ADAPTER 1 EACH in D5W 250 ML IV SCH
[2018-10-27] MEDS ORDERED: PERCOCET 5MG/325MG TAB PO PRN (13:00)
[2018-10-27] MEDS ORDERED: BISACODYL 5 MG TAB PO PRN (13:00)
[2018-10-27 13:38] VITALS: BP 120/65
[2018-10-27 14:15] LABS: HEMATOCRIT 27.2 % (42.0-52.0); HEMOGLOBIN 9.1 g/dl (13.5-17.5); MEAN CORPUSCULAR HEMOGLOBIN 31.9 pg (27.0-33.0); MEAN CORPUSCULAR HGB CONC 33.5 g/dl (32.0-36.5); MEAN CORPUSCULAR VOLUME 95.4 fl (80.0-96.0); PLATELET COUNT, AUTOMATED 166 10^3/uL (150-450); RED BLOOD COUNT 2.85 10^6/uL (4.30-6.10); WHITE BLOOD COUNT 2.5 10^3/uL (4.0-10.0)
--- NOTE | 2018-10-27 14:17 | REP ---
Chest two views HISTORY: Fever Comparison: 08/18/2018 Pleural thickening is present along the left lateral chest wall. The right lung is clear. The cardiac silhouette is enlarged. The pulmonary vasculature is normal in appearance. The bony structure is intact. A cardiac pacemaker is present. IMPRESSION: Cardiomegaly. Electronically Signed by Dandy Easley MD 10/27/2018 02:08 P
[2018-10-27 14:34] LABS: ALBUMIN 2.9 GM/DL (3.2-5.2); ALT/SGPT 19 U/L (12-78); BILIRUBIN,TOTAL 0.8 MG/DL (0.2-1.0); BLOOD UREA NITROGEN 21 MG/DL (7-18); CALCIUM LEVEL 8.4 MG/DL (8.8-10.2); CARBON DIOXIDE LEVEL 25 MEQ/L (21-32); CHLORIDE LEVEL 105 MEQ/L (98-107); CREATININE FOR GFR 0.83 MG/DL (0.70-1.30); GLOMERULAR FILTRATION RATE > 60.0 (>35); GLUCOSE, FASTING 164 MG/DL (70-100); POTASSIUM SERUM 3.9 MEQ/L (3.5-5.1); SODIUM LEVEL 137 MEQ/L (136-145); TOTAL PROTEIN 6.4 GM/DL (6.4-8.2)
[2018-10-27 14:55] LABS: ANISOCYTOSIS 2+; EOSINOPHILS 4 % (0-5); LYMPHOCYTES 28 % (16-52); MONOCYTES 4 % (0-8); NEUTROPHILS 64 % (35-75); PLATELET ESTIMATE NORMAL (NORMAL); SCHISTOCYTES 2+
[2018-10-27] MEDS ORDERED: CALC600T60 PO (15:22)
[2018-10-27] MEDS ORDERED: CIPR250T3 PO (15:23)
[2018-10-27] MEDS ORDERED: LEVO250T12 PO (15:24)
[2018-10-27] MEDS ORDERED: MENSCAP PO (15:25)
[2018-10-27 15:36] LABS: ERYTHROCYTE SEDIMENTATION RATE 68 mm/hr (0-20)
[2018-10-27] MEDS: PIPERACILLIN/TAZOBACTAM SOD 3.375 GM in D5W MINI-BAG PLUS 50 ML IV SCH ×2 (15:40→22:09)
--- NOTE | 2018-10-27 15:41 | CR ---
DATE OF CONSULTATION: 10/27/2018 CONSULTATION FOR: Dr. Perkins This is an 83-year-old gentleman whom I saw earlier in the office today. He has had approximately a 4-day history of left knee pain and some swelling after he missed a step and shakeel his knee. I saw him in the office today and reviewed x-rays from an outside facility, which looked fine, of his knee, aspirated his knee, and was able to draw off a significant amount, probably 70 mL of straw-colored, slightly cloudy fluid, which gave him good symptomatic relief. Then he was afebrile in our office but then seen in Dr. Perkins's office and was noted to be febrile and somewhat hypotensive, so he was admitted to the hospital. His lab work is essentially still pending. His joint fluid analysis does not show any crystals, but so far I do not see any other results back. His white count is low, around 2.5, but he tends to run low, as he has a myelodysplastic syndrome. HOME MEDICATIONS: Listed as calcium chlorophyll, vitamin D3, iron, probiotic, losartan, magnesium, metoprolol, multivitamin, omeprazole, potassium chloride, prednisone, and vegetable enzyme. He also takes naproxen, Zofran. ALLERGIES: Include HEPARIN. REVIEW OF SYSTEMS: CONSTITUTIONAL: No headache, chills, etc., but he has been febrile. At home was around 102.3 last night. He responded to [id number] medications. CARDIOVASCULAR: Denies any chest pain, shortness of breath. RESPIRATORY: No shortness breath or wheezing noted. URINARY: He has a history of urinary tract infection. He has a history of bladder cancer. MUSCULOSKELETAL: Status post left knee arthroplasty, done by Dr. Doshi approximately 4 years ago. GASTROINTESTINAL: Denies any abdominal pain, diarrhea. PHYSICAL EXAMINATION: He is alert, oriented in no acute distress. HEENT: Extraocular muscles intact. Pharynx benign. ABDOMEN: Benign soft, nontender. His left knee demonstrates a well-healed incision. There is a very mild effusion right now. Had a significant effusion in the office. His range of motion is quite good. He can nearly fully extend it, and flexion is beyond 90 degrees. There is no redness. He has very minimal warmth of the knee. No drainage. He has a Band-Aid from the previous aspiration. IMPRESSION: Left knee pain and swelling. Aspiration performed in the office. It is possible that he has an infection developing over the past few days. I just spoke with Dr. Perkins, and the cell count has returned, and it is 40,000 white cells, predominately neutrophils in his left knee, so that would be consistent with an infection, particularly given the fact that this is a prosthesis. I just discussed this with Dr. Perkins while I was dictating, and she agrees that this is something that should be treated surgically. Would anticipate doing an irrigation and debridement and washout as well as likely a polyethylene exchange. This is a knee system that was used by my previous partner who has left the group, and we will need to get equipment in for that. He and his understand the nature of the procedure, the risks of bleeding, infection, damage to nerves, vessels, persistent pain, persistent infection, blood clots, medical problems, , among others. If there is loosening of the prosthesis, we would need to remove the entire prosthesis and put in a spacer, followed by a likely return to the operating room at a later date for reimplantation. They do know that this is a severe difficult problem. ADDENDUM: (Dictated 10/27/2018) I notified the operating room and anticipate doing this tomorrow. I discussed this in detail with the patient and the family. I have also spoken with the [employer] independent sales representative by the name of Shanti Rich, and he indicated that he would be able to get the instrumentation for the Thayer system, which we do not use here routinely since Dr. Doshi left, and he would be able to get that in for us tomorrow morning along with the components that we might need and the polyethylene. I also communicated with Thuan Mcgee, the [employer] independent sales representative, and he is going to make sure that we have the antibiotic beads and the Prostalac system available in case we need to do a resection arthroplasty. The operating room (OR) is aware. JUAN MANUEL
[2018-10-27 16:00] VITALS: BP 174/85
[2018-10-27] MEDS: VANCOMYCIN HCL 750 MG, VIAL MATE ADAPTER 1 EACH in D5W 250 ML IV SCH (16:56)
[2018-10-27 17:18] LABS: AMORPHOUS SEDIMENT SMALL (NEGATIVE); APPEARANCE, URINE HAZY (CLEAR); BACTERIA, URINE AUTO NEGATIVE (NEGATIVE); BILIRUBIN, URINE AUTO NEGATIVE (NEGATIVE); BLOOD, URINE BLOOD NEGATIVE (NEGATIVE); COLOR, URINE AMBER (YELLOW); GLUCOSE, URINE (UA) AUTO NEGATIVE (NEGATIVE); KETONE, URINE AUTO NEGATIVE (NEGATIVE); LEUKOCYTE ESTERASE, URINE AUTO NEGATIVE (NEGATIVE); MUCUS, URINE SMALL (NEGATIVE); NITRITE, URINE AUTO NEGATIVE (NEGATIVE); PROTEIN, URINE AUTO 1+ mg/dL (NEGATIVE); RBC, URINE AUTO 4 /HPF (0-3); SPECIFIC GRAVITY URINE AUTO 1.033 (1.002-1.035); SQUAMOUS EPITHELIAL CELL UR AU 0 /HPF (0-6); WBC, URINE AUTO 2 /HPF (0-3)
--- NOTE | 2018-10-27 17:43 | PHACANCOPD ---
PHARMACY VANCOMYCIN DOSING Pt Demographics Demographics Patient Age:83 , Weight:83.630 , Gender: male Adjusted Body Weight Date: 10/27/18, Adjusted Body Weight:[69] Kg Events Past 24 Hours Events Past 24 Hours: NO: Dialysis, Diuretic Therapy, Change in CrCl, Fever, Elevation in WBC, Pending Diagnostics, Pending Procedures, Other Vancomycin Vancomycin indication: PJI Vancomycin Target Ranges: 15-20 mcg/ml Vancomycin Load Y/N: Yes Load Dose Date Time Vancomycin Load Dose: 1.75g Date: 10/27/18 Time: 1700 Vancomycin Dose Date: 10/27/18. Current Vancomycin Dose: [750mg iv q12h] Intermittent Dosing?: No Labs Labs Item Value Date Time White Blood Count 2.5 10^3/uL L 10/27/18 1225 Creatinine 0.83 MG/DL 10/27/18 1225 C-Reactive Protein, Quantitative 16.80 MG/DL H 10/27/18 1225 Micro Microbiology 10/27/18 Blood Culture, Received Pending 10/27/18 Blood Culture, Received Pending 10/27/18 Urine Culture, Received Pending Creatinine Clearance Date:10/27/18. Creatinine Clearance: [~63ml/min]. Assessment and Plan Maintaining Current Dose?: Yes Reason for dose change: No Dose Change Pharmacist Note Pharmacist Note Date: 10/27/18. 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 The patient was last treated with vancomycin here at [facility] in July 2018. To achieve goal a 1.75g loading dose was started 10/27/18 @17:00. Maintenance therapy will consist of 750mg IV every 12 hours starting 10/28/18 @05. We will continue to monitor and adjust the dose as needed. [facility] Oct 27, 2018 17:43
[2018-10-27] MEDS ORDERED: VANCOMYCIN HCL 1,000 MG, VIAL MATE ADAPTER 1 EACH in D5W 250 ML IV ONE (18:00)
[2018-10-27] MEDS: ACETAMINOPHEN TAB 650MG DOSE (2X325MG) PO PRN ×2 (18:34→23:51)
[2018-10-27 20:00] VITALS: BP 122/58
--- NOTE | 2018-10-27 20:57 | HPEPDOC ---
[facility] Medical History & Physical Date of Admission Oct 27, 2018 History and Physical CHIEF COMPLAINT: HISTORY OF PRESENT ILLNESS: The patient is an 83-year-old man with known myelodysplastic syndrome. He receives azacitidine injections via Dr. Rivera for thrombocytopenia and bladder cancer s/p surgery not yet on chemo, who has approximately a 4-day history of left knee pain and some swelling after he missed a step and shakeel his knee Patient went to ED/urgent care 2 days ago and was placed on levaquin which seems like it wasn't working. He was seen by Dr. Zhao earlier today in his office and he aspirated 70cc of fluid from his knee. He was also seen by Dr. Perkins after and was sent to the ED for fever of 102.9 and sbp in 90s . Prior to this he was treated for bacteremia wit e. faecalis and was on abx which he said he completed 2 weeks ago. Patient has a left knee prosthesis and now the left knee seems to be infected, has swelling and warm. There is concern for left knee infection with hardware involvement. He is planned for OR tomorrow to remove the prosthesis . REVIEW OF SYSTEMS: All 14 points ROS is negative except what's stated in HPI PHYSICAL EXAMINATION: GEN: no acute distress CVS: Normal S1/s2, no murmurs, rubs or gallops, RESP: Lungs are clear to auscultation bilaterally, no crackles, wheezes or rhonchi Abd: soft, nontender, nondistended, + BS MSK: full ROM, left knee with warmth and tenderness, band aid over area which was aspirated, 5/5 strength in all extremities Integumentary: no rash or bruises Neuro: AOAx3, no focal deficit psych: normal mood, good judgement and cooperative PAST MEDICAL HISTORY: 1. Refractory MDS. 2. Hypertension. 3. Hiatal hernia. 4. 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 5. Vitamin D deficiency. 6. Osteoarthritis. 7. Iron deficiency anemia. 8. Hypertension. 9. Gastroesophageal reflux disease (GERD). 10. Bladder cancer, status post resection, follows with Dr. Noyola. HOME MEDICATIONS: see below FAMILY HISTORY: Noncontributory. ALLERGIES: HEPARIN. SOCIAL HISTORY: He is a former smoker, quit 10 years ago. He denies any recent alcohol or illicit drug use. SURGICAL HISTORY: 1. Transurethral resection of bladder tumor times two. 2. Chest tube in 2016. Assessment left knee (septic arthritis) with possible hardware involvement cxr - cardiomegaly - nol present sign of heart failure Plan c/w vanc and zosyn f/u wound and blood cx prn pain meds npo after midnight monitor for sign of endocarditis as well ( no murmur on exam) f/u echo f/u ekg T and S , and coag with AM labs Laboratory Data Labs 24H Laboratory Tests 2 10/27/18 10:00: Body Fluid Source RT KNEE, Body Fluid WBC (Auto) 53462D, Body Fluid RBC (Auto) 10, Body Fluid Mononuclear Cells % Auto 5.3H, Fluid Polymorphonuclear Cell % Auto 94.7H, Body Fluid Crystals NONE SEEN, Body Fluid Crystal Source RT KNEE, Body Fluid Glucose Source RT KNEE, Body Fluid Glucose 5, Body Fluid Uric Acid 6.1, Body Fluid Uric Acid Source RT KNEE, Body Fluid Rheumatoid Factor Screen NEGATIVE, Body Fluid Rheumatoid Factor Source RT KNEE, Synovial Fluid Source RT KNEE, Synovial Fluid Color KELI, Synovial Fluid Appearance CLOUDY, Synovial Fluid Mucin Clot 4+ Microbiology Microbiology 10/27/18 Gram Stain - Final, Resulted 10/27/18 Body Fluid Culture, Resulted Pending Home Medications Scheduled (Icaps) 1 Cap Cap, 1 CAP PO DAILY (Mens Daily Formula/Lycope) 1 Cap Cap, 1 CAP PO DAILY Calcium Carbonate (Calcium) 600 Mg Tab, 600 MG PO BID Chlorophyll (Chloroxygen 50 mg) 1 Cap Cap, 50 MG PO QHS Cholecalciferol (Vitamin D-3) 2,000 Unit Tab, 2,000 UNIT PO DAILY Ferrous Sulfate (Ferrous Sulfate) 325 Mg Tab, 325 MG PO DAILY Lactobacillus Acidophilus (Probiotic) 1 Cap Cap, 1 CAP PO DAILY Levofloxacin Hemihydrate (Levofloxacin) 250 Mg Tab, 250 MG PO BID STARTED / FOR 7 DAYS Losartan Potassium (Losartan Potassium) 100 Mg Tab, 100 MG PO QPM Magnesium Chloride (Mag64) 64 Mg Tabcr, 64 MG PO DAILY Metoprolol Tartrate (Metoprolol Tartrate) 25 Mg Tab, 25 MG PO BID Multivitamins (Centrum Silver Adult 50+) 1 Tab Tab, 1 TAB PO DAILY Omeprazole (Omeprazole) 40 Mg Cap, 40 MG PO DAILY Potassium Chloride (Klor-Con M10) 10 Meq Tabcr, 10 MEQ PO DAILY Prednisone (Prednisone) 5 Mg Tab, 5 MG PO DAILY INCREASES DOSE FOR FLARE UPS Vegetable Enzyme (Lutein) 6 Mg Cap, 6 MG PO DAILY Allergies Coded Allergies: Heparin (Verified Adverse Reaction, Severe, HIT, 09/01/17) GENEVIEVE FONTANEZ MD Oct 27, 2018 20:38
[2018-10-28] VITALS (10 sets, daily range): BP systolic 112–143; BP diastolic 55–67
[2018-10-28] MEDS: PIPERACILLIN/TAZOBACTAM SOD 3.375 GM in D5W MINI-BAG PLUS 50 ML IV SCH ×4 (03:11→22:53)
[2018-10-28] MEDS: VANCOMYCIN HCL 750 MG, VIAL MATE ADAPTER 1 EACH in D5W 250 ML IV SCH ×2 (04:07→16:04)
[2018-10-28 08:08] LABS: HEMATOCRIT 25.1 % (42.0-52.0); HEMOGLOBIN 8.3 g/dl (13.5-17.5); MEAN CORPUSCULAR HEMOGLOBIN 31.9 pg (27.0-33.0); MEAN CORPUSCULAR HGB CONC 33.1 g/dl (32.0-36.5); MEAN CORPUSCULAR VOLUME 96.5 fl (80.0-96.0); PLATELET COUNT, AUTOMATED 147 10^3/uL (150-450); WHITE BLOOD COUNT 3.1 10^3/uL (4.0-10.0)
[2018-10-28 08:24] LABS: INR 1.14; PROTHROMBIN TIME 14.8 SECONDS (12.1-14.4)
[2018-10-28 08:25] LABS: PARTIAL THROMBOPLASTIN TIME 42.2 SECONDS (25.4-37.6)
[2018-10-28 08:33] LABS: ALBUMIN 2.4 GM/DL (3.2-5.2); ALT/SGPT 16 U/L (12-78); BILIRUBIN,TOTAL 0.8 MG/DL (0.2-1.0); BLOOD UREA NITROGEN 13 MG/DL (7-18); CARBON DIOXIDE LEVEL 25 MEQ/L (21-32); CHLORIDE LEVEL 105 MEQ/L (98-107); CREATININE FOR GFR 0.72 MG/DL (0.70-1.30); GLOMERULAR FILTRATION RATE > 60.0 (>35); GLUCOSE, FASTING 121 MG/DL (70-100); SODIUM LEVEL 136 MEQ/L (136-145); TOTAL PROTEIN 6.1 GM/DL (6.4-8.2)
[2018-10-28 09:08] LABS: ATYPICAL LYMPH 1 % (0-5); BASOPHILS 2 % (0-4); EOSINOPHILS 2 % (0-5); LYMPHOCYTES 31 % (16-52); MONOCYTES 3 % (0-8); NEUTROPHILS 60 % (35-75)
[2018-10-28 09:09] LABS: PLATELET ESTIMATE DECREASED (NORMAL)
[2018-10-28 09:10] LABS: ANISOCYTOSIS 2+; SCHISTOCYTES 2+
[2018-10-28] MEDS: ACETAMINOPHEN TAB 650MG DOSE (2X325MG) PO PRN (09:44)
[2018-10-28] MEDS ORDERED: BUPIVACAINE HCL 0.25% 30 ML VIAL As Ordered ONE (12:16)
[2018-10-28] MEDS ORDERED: ceFAZolin 1GM INJ (J0690 PER 500MG) As Ordered ONE ×2 (12:40→16:23)
[2018-10-28] MEDS ORDERED: PROPOFOL 200 MG/20 ML VIAL As Ordered ONE ×2 (12:44→16:41)
[2018-10-28] MEDS ORDERED: dexameTHASONE 4 MG/ML 1ML VIAL (J1100) As Ordered ONE ×2 (12:44→15:43)
[2018-10-28] MEDS ORDERED: LIDOCAINE 2% INJ 100 MG/5 ML SDV (FOR ANES.) As Ordered ONE (12:44)
[2018-10-28] MEDS ORDERED: ONDANSETRON 4MG/2ML VIAL (J2405) As Ordered ONE (12:44)
[2018-10-28] MEDS ORDERED: ROCURONIUM BROMIDE 50 MG/5 ML VIAL As Ordered ONE ×2 (12:44→15:58)
[2018-10-28] MEDS ORDERED: KETAMINE HCL 200 MG/20 ML VIAL As Ordered ONE (12:46)
[2018-10-28] MEDS ORDERED: fentaNYL 100 MCG/2 ML INJECTION (J3010) As Ordered ONE ×2 (12:46→16:41)
--- NOTE | 2018-10-28 13:51 | IPNPDOC ---
Text Note Date of Service The patient was seen on 10/28/18. NOTE Subjective: Patient states he prescription his knee while coming down a few st airs. This has caused his need to get progressively swollen, warm. He patient states since admission, his knee is less swollen. He has improved range of motion. Patient denies any chest pain, palpitations, syncopal episodes with ambulation. He has no history of heart disease, denies any insulin use. Objective: Vitals: (see below) General: No acute distress, laying comfortably in bed. HEENT: Moist mucous membranes. Neck: No JVD or lymphadenopathy Cardiac: RRR, No murmurs Pulm: Clear to auscultation b/l. No wheezing, rhonchi Abd: NT/ND + BS Ext: No cyanosis. Left knee with swelling, mild warmth, no significant area of cellulitis overlying the knee. Good range of motion. Distal pulses intact. Labs (see below) Assessment/Plan 1. Concern for septic knee- patient did have arthrocentesis, with 40,000 WBCs. Blood/body fluid culture pending. On vancomycin and Zosyn. He is planned for the OR for washout 10/28. Infectious disease consultation. 2. Hypertension controlled continue meds. 3. History of refractory MDS- was scheduled for chemotherapy in the near future, which is currently on hold. 4. History of PPM- will need outpatient cardiology follow-up. 5. History of mitral valve replacement and tricuspid valve repair and Prole 2 years ago.- Will need outpatient follow-up with cardiology. 6. History of bladder cancer status post resection follows up with Dr. Noyola. 7. History of Enterococcus faecalis bacteremia status post antibiotic therapy. DVT prophy: As per orthopedics RCRI score 0-1. Patient's is undergoing intermediate risk procedure. He is currently hemodynamically stable, with no chest pain/palpitations/shortness of breath. Patient is medically optimized. VS,Fishbone, I+O VS, Fishbone, I+O Laboratory Tests 10/28/18 07:46 Red Blood Count 2.60 L, Mean Corpuscular Volume 96.5 H, Mean Corpuscular Hemoglobin 31.9, Mean Corpuscular Hemoglobin Concent 33.1, Red Cell Distribution Width 21.1 H, Calcium Level 8.0 L, Aspartate Amino Transf (AST/SGOT) 15, Alanine Aminotransferase (ALT/SGPT) 16, Alkaline Phosphatase 54, Total Bilirubin 0.8, Total Protein 6.1 L, Albumin 2.4 L Vital Signs Date Time Temp Pulse Resp B/P (MAP) Pulse Ox O2 Delivery O2 Flow Rate FiO2 10/28/18 12:00 98.6 69 17 119/58 (50) 98 I&O- Last 24 Hours up to 6 AM 10/28/18 06:00 Intake Total 2095 ml Output Total 950 ml Balance 1145 ml SUZE FERRO MD Oct 28, 2018 13:51
[2018-10-28] MEDS ORDERED: TOBRAMYCIN SULF 1.2 GM VIAL As Ordered ONE (14:18)
[2018-10-28] MEDS ORDERED: VANCOMYCIN 1000 MG/20 ML VIAL (J3370) As Ordered ONE ×2 (14:18→15:49)
[2018-10-28] MEDS ORDERED: MIDAZOLAM INJ 2 MG/2 ML VIAL (J2250) As Ordered ONE (14:31)
[2018-10-28] MEDS ORDERED: ZOSYN 3.375 GM VIAL (J2543) As Ordered ONE (15:08)
[2018-10-28] MEDS ORDERED: PHENYLephrine HCL 500 MCG/5 ML (100MCG/ML) SYRINGE (J2370) As Ordered ONE (15:18)
[2018-10-28] MEDS ORDERED: SUGAMMADEX SODIUM 500 MG/5 ML VIAL (BRIDION) As Ordered ONE (15:42)
[2018-10-28] MEDS ORDERED: BUPIVACAINE LIPOSOME/PF 1.3% 20ML VIAL (13.3MG/ML)(EXPAREL)(C9290 PER1MG) As Ordered ONE (16:29)
[2018-10-28] MEDS ORDERED: MORPHINE 1MG/ML IN 0.9% NACL 100ML IV BAG As Ordered ONE (17:17)
[2018-10-28] MEDS ORDERED: FLEET ENEMA PR PRN (17:30)
[2018-10-28] MEDS ORDERED: NALOXONE INJ 0.4 MG/1 ML VIAL (J2310) IV PRN (17:30)
[2018-10-28] MEDS ORDERED: MORPHINE 1MG/ML IN 0.9% NACL 100ML IV BAG IV PRN (17:30)
[2018-10-28] MEDS ORDERED: EPIDURAL/PCA KEYS XX PRN (17:30)
[2018-10-28] MEDS ORDERED: ONDANSETRON 4MG/2ML VIAL (J2405) IV PRN ×2 (17:30)
[2018-10-28] MEDS ORDERED: diphenhydrAMINE INJ 50MG/ML VIAL (J1200) IV PRN (17:30)
[2018-10-28] MEDS ORDERED: fentaNYL 100 MCG/2 ML INJECTION (J3010) IV PRN (17:30)
[2018-10-28] MEDS ORDERED: NALBUPHINE HCL 10 MG/ML AMP (J2300) IV PRN (17:30)
[2018-10-28] MEDS ORDERED: HYDROMORPHONE HCL 0.5 MG/ 0.5 ML SYRINGE (J1170 PER 1) IV PRN (17:30)
[2018-10-28] MEDS: LR 1,000 ML IV SCH (17:30)
--- NOTE | 2018-10-28 19:27 | REP ---
Left knee: Two views. History: Postop. Findings: The patient is status post left knee arthroplasty. Anterior skin victorina are seen. A surgical drain is seen in the region of the suprapatellar bursa. There are postoperative changes of swelling and emphysema in the soft tissues. Also noted are innumerable opaque pellet like densities distributed in the region of the suprapatellar bursa consistent with antibiotic infused implants. Vascular calcifications noted. Alignment is normal. Electronically Signed by Immanuel Mann MD 10/28/2018 07:33 P
[2018-10-28] MEDS: METOPROLOL TART 25 MG TABLET PO SCH (22:53)
[2018-10-29] VITALS (9 sets, daily range): BP systolic 112–138; BP diastolic 60–80; O2SAT 97–99
[2018-10-29] MEDS: PIPERACILLIN/TAZOBACTAM SOD 3.375 GM in D5W MINI-BAG PLUS 50 ML IV SCH ×2 (04:03→10:41)
[2018-10-29] MEDS: VANCOMYCIN HCL 750 MG, VIAL MATE ADAPTER 1 EACH in D5W 250 ML IV SCH (05:26)
[2018-10-29] MEDS: LR 1,000 ML IV SCH (06:50)
[2018-10-29] MEDS ORDERED: ONDANSETRON 4 MG TAB (S0181) PO PRN (08:00)
[2018-10-29 08:37] LABS: HEMATOCRIT 22.1 % (42.0-52.0); HEMOGLOBIN 7.4 g/dl (13.5-17.5); MEAN CORPUSCULAR HGB CONC 33.5 g/dl (32.0-36.5); MEAN CORPUSCULAR VOLUME 95.7 fl (80.0-96.0); PLATELET COUNT, AUTOMATED 155 10^3/uL (150-450); RED BLOOD COUNT 2.31 10^6/uL (4.30-6.10); WHITE BLOOD COUNT 3.2 10^3/uL (4.0-10.0)
[2018-10-29] MEDS: OMEPRAZOLE 20 MG CAP PO SCH ×2 (08:39→09:00)
[2018-10-29] MEDS: METOPROLOL TART 25 MG TABLET PO SCH ×2 (08:39→21:02)
[2018-10-29] MEDS: LACTOBACILLUS ACIDOPHILUS CAP (BACID) PO SCH ×2 (08:40→09:00)
[2018-10-29] MEDS: SENOKOT S TAB PO SCH ×2 (08:40→20:31)
[2018-10-29] MEDS: MIRALAX *UNIT DOSE* 17GM PACKET PO SCH (08:40)
[2018-10-29] MEDS: FERROUS SULFATE 325MG TAB PO SCH ×2 (08:40→09:00)
[2018-10-29] MEDS: MULTIVITAMINS/MINERALS THERAP 1 TAB PO SCH ×2 (08:40→09:00)
[2018-10-29] MEDS: predniSONE 5 MG TAB PO SCH ×2 (08:40→09:00)
[2018-10-29] MEDS: PERCOCET 5MG/325MG TAB PO PRN ×3 (08:41→17:25)
[2018-10-29] MEDS: RIVAROXABAN 10 MG TAB (XARELTO) PO SCH (08:42)
[2018-10-29 09:01] LABS: BLOOD UREA NITROGEN 12 MG/DL (7-18); CALCIUM LEVEL 8.5 MG/DL (8.8-10.2); CARBON DIOXIDE LEVEL 25 MEQ/L (21-32); CHLORIDE LEVEL 102 MEQ/L (98-107); CREATININE FOR GFR 0.68 MG/DL (0.70-1.30); GLOMERULAR FILTRATION RATE > 60.0 (>35); GLUCOSE, FASTING 169 MG/DL (70-100); POTASSIUM SERUM 3.9 MEQ/L (3.5-5.1); SODIUM LEVEL 135 MEQ/L (136-145)
--- NOTE | 2018-10-29 10:45 | RO ---
DATE OF PROCEDURE: 10/28/2018 PREOPERATIVE DIAGNOSIS: Left total knee arthroplasty infection, acute. POSTOPERATIVE DIAGNOSIS: Left total knee arthroplasty infection, acute. PROCEDURE: Incision and drainage of left knee infection with polyethylene exchange, placement of dissolvable antibiotic beads. SURGEON: Valeriano Zhao MD EMPLOYEE RELATIONS ASSISTANT: Melida Belol MD ANESTHESIA: General. ESTIMATED BLOOD LOSS: 50 mL. COMPLICATIONS: None. INDICATIONS: This is an 83-year-old who underwent a total knee arthroplasty in December of [address] Doshi. He has done well with this prosthesis over the years, but then about 4-5 days ago he jammed his knee, he got some swelling and then started getting fevers. An aspiration was performed yesterday that had elevated white count and he was felt to have likely infection. He was admitted to the hospital by Dr. Perkins after being seen in the office. We recommended revision, irrigation, debridement and possible resection arthroplasty versus polyethylene exchange. After discussion with my partner and Dr. Perkins, we felt that it would be very reasonable to do a polyethylene exchange since this was a quite acute onset infection that he had no symptoms of infection prior to about 4-5 days ago and then developed this effusion and then a couple 2-3 days ago showed sinus signs of infection. No signs of loosening on the x-ray. His inflammatory markers were elevated. He and his family understood the nature of procedure, the risks of bleeding, infection, damage to nerves, vessels, persistent pain, wear, loosening, blood clots, medical problems, among others. Understood there was a possible need for complete resection of the knee down the road depending upon whether we were successful. PROCEDURE: The patient was taken to the operating room, placed in supine position after general anesthesia was induced. The left lower extremity was prepped and draped in the usual sterile usual sterile fashion. A time out was performed. I had marked out the previous incision. I made a longitudinal incision. I did have to length it a little bit in each direction. Did a medial parapatellar arthrotomy. There were some permanent #2 Ethibond sutures that I divided through and then did a medial release. We spent a significant amount time removing the Ethibond sutures just because we felt this would be as possible nidus for infection. The patella was able to be subluxed off to the side and then we performed a synovectomy with combination of knife and rongeur. I then removed the polyethylene by first removing the poly around the post, then removed the post and then disconnected the polyethylene from the tray. There was no evidence of any loosening of the components themselves, they will well cemented. There was some cement in the notch at the upper end of the box of the component and this was removed as well. We were able to irrigate and suction out the femoral canal because there was concern that the infection may have spread to that is space. I then copiously irrigated with 4 liters of antibiotic irrigation. Once I was satisfied with the synovectomy and removed any of the remaining suture, we then placed the replacement polyethylene and I ended up using a Triathlon posterior stabilized size 6 11-mm PS tray as I felt that given the stability of the knee with the trial components of polyethylene that the PS was adequate. The one that was in there was the total Stabilizer Plus. His knee was very stable with the PS and I was hoping to try to maintain motion for him. I was concerned also that this infection might lead to further scarring. Once I was satisfied with the placement of the polyethylene and put the knee through a range of motion, the patella tracked quite nicely. We then placed multiple different size antibiotic absorbable beads throughout the knee, down in the gutters and in the pouch, etc. Placed a 15 J-VAC drain through the superolateral aspect of knee and then repaired the deep layer with running STRATAFIX suture in both directions. I had used a Vicryl to reapproximate the capsule initially. Watertight closure was placed. We kept suction to the drain then put a bulb suction on it. Irrigated and closed the subcu with #2-0 Vicryl and the skin with victorina. A sterile dressing was applied. Tourniquet had been deflated prior to wound closure and there did not appear to be excessive bleeding all despite the fact that he has had a history of thrombocytopenia. The patient was taken to the recovery room in stable condition. There were no known complications. PLAN: The plan will be routine postop. The IV antibiotic therapy will be, of course, managed by Dr. Perkins. I did place some Exparel in the deep tissues to try to help with postoperative pain control. I will use a INSPECTOR FINISHING because we elected against the block in the face of infection. DATE OF ADDENDUM: 11/05/2018 The physiotherapist's assistant was instrumental in holding retractors and assisting in the synovectomy and assisting in removing the polyethylene and replacement of the polyethylene, assisting in insertion of the antibiotic beads and wound closure. Also, was important for the decision making throughout the case.
--- NOTE | 2018-10-29 16:16 | IPNPDOC ---
Text Note Date of Service The patient was seen on 10/29/18. NOTE Subjective: Patient's states his left knee pain slightly worse today as he wal ked with physical therapy. Denies any chest pain or palpitations. No nausea vomiting abdominal pain. Patient denies any chest pain, palpitations, syncopal episodes with ambulation. He has no history of heart disease, denies any insulin use. Objective: Vitals: (see below) General: No acute distress, laying comfortably in bed. HEENT: Moist mucous membranes. Neck: No JVD or lymphadenopathy Cardiac: RRR, No murmurs Pulm: Clear to auscultation b/l. No wheezing, rhonchi Abd: NT/ND + BS Ext: No cyanosis. Left knee with swelling. Darius bandage intact. Good range of motion. Distal pulses intact. LOLLY drain with serous and with his fluid. Labs (see below) Assessment/Plan 1. Concern for septic knee- patient did have arthrocentesis, with 40,000 WBCs. Blood/body fluid culture pending. s/p vancomycin and Zosyn. Currently on Rocephin and ampicillin per S/p OR for washout 10/28 by orthopedics. Continue anti-wax pending cultures. 2. Hypertension controlled continue meds. 3. History of refractory MDS- was scheduled for chemotherapy in the near future, which is currently on hold. 4. History of PPM- will need outpatient cardiology follow-up. 5. History of mitral valve replacement and tricuspid valve repair and Simmons 2 years ago.- Will need outpatient follow-up with cardiology. 6. History of bladder cancer status post resection follows up with Dr. Noyola. 7. History of Enterococcus faecalis bacteremia status post antibiotic therapy. 8. Acute blood loss anemia status post washout, as well as underlying MDS- discussed with Dr. Membreno - who does not recommend irradiated blood, as the patient's greater than 70 years old and will not be a candidate for bone marrow transplant. Continue to monitor hemoglobin. Transfuse as needed. Hemodynamically stable. DVT prophy: As per orthopedics VS,Pavelbone, I+O VS, Pavelbone, I+O Laboratory Tests 10/29/18 08:22 Red Blood Count 2.31 L, Mean Corpuscular Volume 95.7, Mean Corpuscular Hemoglobin 32.0, Mean Corpuscular Hemoglobin Concent 33.5, Red Cell Distribution Width 20.5 H, Calcium Level 8.5 L Vital Signs Date Time Temp Pulse Resp B/P (MAP) Pulse Ox O2 Delivery O2 Flow Rate FiO2 10/29/18 14:00 97.0 18 124/60 100 10/29/18 14:00 70 10/29/18 13:28 Room Air 10/29/18 06:00 2.0 10/28/18 18:43 100 I&O- Last 24 Hours up to 6 AM 10/29/18 06:00 Intake Total 1595 ml Output Total 735 ml Balance 860 ml SUZE FERRO MD Oct 29, 2018 16:16
[2018-10-29] MEDS: cefTRIAXone SOD 2 GM in D5W MINI-BAG PLUS 50 ML IV SCH (16:24)
[2018-10-29] MEDS: AMPICILLIN SOD 2 GM in D5W MINI-BAG PLUS 100 ML IV SCH ×2 (17:23→20:31)
[2018-10-29] MEDS: ACETAMINOPHEN TAB 650MG DOSE (2X325MG) PO PRN (20:43)
[2018-10-30] VITALS (7 sets, daily range): BP systolic 109–139; BP diastolic 60–77
[2018-10-30] MEDS: AMPICILLIN SOD 2 GM in D5W MINI-BAG PLUS 100 ML IV SCH ×6 (01:08→22:23)
[2018-10-30] MEDS: PERCOCET 5MG/325MG TAB PO PRN ×6 (01:08→22:24)
[2018-10-30] MEDS: cefTRIAXone SOD 2 GM in D5W MINI-BAG PLUS 50 ML IV SCH ×2 (04:46→17:18)
[2018-10-30 07:42] LABS: C REACTIVE PROTEIN QUANTITATIV 7.39 MG/DL (0.00-0.30)
[2018-10-30 07:55] LABS: ERYTHROCYTE SEDIMENTATION RATE 54 mm/hr (0-20)
--- NOTE | 2018-10-30 08:03 | IPN ---
DATE OF SERVICE: 10/30/2018 CHIEF COMPLAINT: Postoperative day 2 left total knee arthroplasty infection with polyethylene exchange by Dr. Zhao. HISTORY OF PRESENT ILLNESS: This man unfortunately developed infection of his left total knee arthroplasty following replacement. He was seen and assessed by Dr. Zhao. He decided to go ahead with polyethylene exchange and irrigation and debridement. He is seen today on the mathur postoperative day 2. He is doing well but does complain of a little bit of pain in the posterior aspect of his knee and some tightness there. Nothing going down the leg. No fever, chills, chest pain, shortness of breath, or any other constitutional symptoms. He was getting up to the side of the bed but apparently has not seen physical therapy yet. PHYSICAL EXAMINATION: Vital signs reveal temperature 97.8, blood pressure 128/72, pulse rate 78, 98% on room air, respiratory rate 19. He is alert and oriented times three. Mood and affect is pleasant and positive. It was an easy conversation. Inspection of both his lower extremities reveal a Michael-Garzon drain to be in situ. There is about 15 mL of serosanguineous fluid in there. Apparently they just emptied this. Right lower extremity appears normal. He is able to wiggle his toes and dorsiflex and plantarflex his foot on both sides. Feet are warm and well perfused. There is good pedal pulses. LABORATORY EXAMINATION: This morning is pending. Yesterday, his hemoglobin was 7.4. ASSESSMENT AND PLAN: This 83-year-old man who is postoperative day 2 from a left knee polyethylene exchange for infection. We will leave the Michael-Garzon drain in for one more day and then likely discontinue this tomorrow per Dr. Zhao's orders. I will leave the management of his slightly low hemoglobin in the pole setter's hands and lab work from this morning is still pending, so we will see how that is trending. We have encouraged him to mobilize and do some deep breathing. For VTE prophylaxis, he is on Xarelto 10 mg by mouth once daily.
[2018-10-30 09:06] LABS: BLOOD UREA NITROGEN 11 MG/DL (7-18); CALCIUM LEVEL 8.5 MG/DL (8.8-10.2); CARBON DIOXIDE LEVEL 28 MEQ/L (21-32); CHLORIDE LEVEL 106 MEQ/L (98-107); CREATININE FOR GFR 0.66 MG/DL (0.70-1.30); GLOMERULAR FILTRATION RATE > 60.0 (>35); GLUCOSE, FASTING 148 MG/DL (70-100); POTASSIUM SERUM 3.6 MEQ/L (3.5-5.1); SODIUM LEVEL 140 MEQ/L (136-145)
[2018-10-30 09:10] LABS: BASO % 1.4 % (0.0-1.0); EOS # 0.1 10^3/uL (0.0-0.50); EOS % 4.3 % (0.0-3.0); HEMATOCRIT 23.8 % (42.0-52.0); HEMOGLOBIN 7.8 g/dl (13.5-17.5); LYMPH # 0.9 10^3/uL (1.5-4.5); LYMPH % 32.6 % (24.0-44.0); MEAN CORPUSCULAR HEMOGLOBIN 31.3 pg (27.0-33.0); MEAN CORPUSCULAR HGB CONC 32.8 g/dl (32.0-36.5); MEAN CORPUSCULAR VOLUME 95.6 fl (80.0-96.0); MONO # 0.3 10^3/uL (0.0-0.8); MONO % 9.6 % (0.0-5.0); NEUTROPHILS # 1.5 10^3/uL (1.8-7.7); NEUTROPHILS % 51.4 % (36.0-66.0); PLATELET COUNT, AUTOMATED 165 10^3/uL (150-450); RED BLOOD COUNT 2.49 10^6/uL (4.30-6.10); WHITE BLOOD COUNT 2.8 10^3/uL (4.0-10.0)
[2018-10-30] MEDS: MIRALAX *UNIT DOSE* 17GM PACKET PO SCH (09:56)
[2018-10-30] MEDS: RIVAROXABAN 10 MG TAB (XARELTO) PO SCH (09:57)
[2018-10-30] MEDS: OMEPRAZOLE 20 MG CAP PO SCH (09:57)
[2018-10-30] MEDS: predniSONE 5 MG TAB PO SCH (09:57)
[2018-10-30] MEDS: LACTOBACILLUS ACIDOPHILUS CAP (BACID) PO SCH (09:57)
[2018-10-30] MEDS: METOPROLOL TART 25 MG TABLET PO SCH ×2 (09:58→22:23)
[2018-10-30] MEDS: SENOKOT S TAB PO SCH ×2 (09:58→22:23)
[2018-10-30] MEDS: FERROUS SULFATE 325MG TAB PO SCH (09:58)
[2018-10-30] MEDS: MULTIVITAMINS/MINERALS THERAP 1 TAB PO SCH (09:59)
--- NOTE | 2018-10-30 16:27 | IPN ---
DATE: 10/30/2018 Mr. Ng is doing well, except that he complains of difficulty with hip flexion and being able to elevate his leg. He has use to drag it side to side. He has had no fever or chills. No nausea, vomiting, or diarrhea. No abdominal pain. He was seen by Dr. Conrad postoperative day #2. The Michael-Garzon drain was kept in place for one more day. He denies any nausea, vomiting, diarrhea, abdominal pain, fever, or chills. The patient currently on ampicillin 2 grams intravenous (IV) every 4 hours and ceftriaxone 2 grams IV every 12 for Enterococcus (E) faecalis bacteremia and prosthetic joint infection. LABORATORY DATA: Blood cultures, two sets, were positive for E faecalis. Repeat blood cultures done on October 30 are pending. Left knee culture is positive for Enterococcus faecalis, few, sensitive to penicillin, ampicillin, quinolones. White count 2.8, hemoglobin 7.8, hematocrit 23.8, platelets 165, 51% neutrophils, 32% lymphocytes, 9% monocytes, 4% eosinophils. ESR 54. Sodium 140, potassium 3.6, chloride 106, bicarbonate 28, BUN 11, creatinine 0.66, glucose 148, calcium 8.5, CRP 7.39, down from 17.3. PHYSICAL EXAMINATION: HEART: Normal S1, S2. No murmurs appreciated. LUNGS: Clear. No wheezes, rales, or rhonchi. ABDOMEN: Soft, nontender. No hepatosplenomegaly. BACK: No costovertebral angle (CVA) or lumbosacral tenderness. EXTREMITIES: No edema. Left knee with an Darius bandage. Has a drain with bloody discharge. 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 First episode was July 2018. The patient currently on ampicillin and ceftriaxone. Repeat blood cultures were ordered. Transthoracic echocardiogram to rule out prosthetic joint infection was ordered. 2. History of myelodysplasia The patient may require blood transfusion. Hemoglobin is 7.8, hematocrit 23.8. Chemotherapy will remain on hold until intravenous (IV) antibiotics are finished. 3. History of bladder cancer asymptomatic PLAN: Peripherally inserted central catheter (PICC) line on Friday if repeat blood cultures are negative. Ampicillin and Rocephin for a total of 6 weeks. Transthoracic echocardiogram was done today. Results are pending. May consider doing a transesophageal echocardiogram (ERIC), as there is concern of seeding of the pacemaker or the prosthetic valve. The patient will need group home placement, as he cannot afford home IV antibiotics, and his will not be able to manage all those antibiotics. He will need a dual-port PICC line. JUAN MANUEL
--- NOTE | 2018-10-30 16:59 | IPNPDOC ---
Text Note Date of Service The patient was seen on 10/30/18. NOTE Subjective: Patient feels well. Denies any complaints. Objective: Vitals: (see below) General: No acute distress, laying comfortably in bed. HEENT: Moist mucous membranes. Neck: No JVD or lymphadenopathy Cardiac: RRR, No murmurs Pulm: Clear to auscultation b/l. No wheezing, rhonchi Abd: NT/ND + BS Ext: No cyanosis. Left knee with swelling. Darius bandage intact. Good range of motion. Distal pulses intact. LOLLY drain with serous-sangfluid. Labs (see below) Assessment/Plan 1. Prosthetic knee infection- culture with Enterococcus faecalis-blood culture positive with Enterococcus faecalis as well. S/p vancomycin and Zosyn. Currently on Rocephin and ampicillin per S/p OR for washout 10/28 by orthopedics. Continue antibiotics for 6 weeks per ID. If repeat cultures negative, will need PICC line on Friday. 2. Hypertension controlled continue meds. 3. History of refractory MDS- was scheduled for chemotherapy in the near future, which is currently on hold. 4. History of PPM- will need outpatient cardiology follow-up. 5. History of mitral valve replacement and tricuspid valve repair and Simmons 2 years ago.- Will need outpatient follow-up with cardiology. 6. History of bladder cancer status post resection follows up with Dr. Noyola. 7. History of Enterococcus faecalis bacteremia status post antibiotic therapy. 8. Acute blood loss anemia status post washout, as well as underlying MDS- discussed with Dr. Membreno - who does not recommend irradiated blood, as the patient's greater than 70 years old and will not be a candidate for bone marrow transplant. Continue to monitor hemoglobin. Transfuse as needed. Hemodynamically stable. Transfuse total of 2 units PRBC. DVT prophy: As per orthopedics VS,Swati, I+O VS, [place], I+O Laboratory Tests 10/30/18 06:53 Red Blood Count 2.49 L, Mean Corpuscular Volume 95.6, Mean Corpuscular Hemoglobin 31.3, Mean Corpuscular Hemoglobin Concent 32.8, Red Cell Distribution Width 19.5 H, Neutrophils (%) (Auto) 51.4, Lymphocytes (%) (Auto) 32.6, Monocytes (%) (Auto) 9.6 H, Eosinophils (%) (Auto) 4.3 H, Basophils (%) (Auto) 1.4 H, Neutrophils # (Auto) 1.5 L, Lymphocytes # (Auto) 0.9 L, Monocytes # (Auto) 0.3, Eosinophils # (Auto) 0.1, Basophils # (Auto) 0.0, Calcium Level 8.5 L Vital Signs Date Time Temp Pulse Resp B/P (MAP) Pulse Ox O2 Delivery O2 Flow Rate FiO2 10/30/18 14:00 97.7 70 16 138/62 (87) 91 10/29/18 18:42 Room Air 10/29/18 06:00 2.0 10/28/18 18:43 100 I&O- Last 24 Hours up to 6 AM0 10/30/18 06:00 Intake Total 3090 ml Output Total 2180 ml Balance 910 ml SUZE FERRO MD Oct 30, 2018 16:59
--- NOTE | 2018-10-30 21:23 | IPN ---
DATE: 10/29/2018 Mr. Ng is doing well today. He has had no fever or chills in the past 24 hours. No nausea, vomiting, or diarrhea. No abdominal pain or dysuria. His only complaint is pain in his left knee. He is status post incision and drainage (I and D) with polyethylene exchange and placement of dissolvable antibiotic beads. This was done yesterday by Dr. Zhao. LABORATORY DATA: White count 3.2, hemoglobin 7.4, hematocrit 22.1, platelets 155. Sodium 135, potassium 3.9, chloride 102, bicarbonate 25, BUN 12, creatinine 1.68, glucose 169, calcium 8.5, CRP 17.3. Urinalysis: 2 white cells, 4 red cells. PT 14.8, PTT 42.2. Blood cultures, one out of two, is positive for gram-positive cocci in chains, Urine culture was negative. Intraoperative Gram stain had 2 white cells. No organisms seen. Cultures is pending. Aspiration from the outpatient office on October 24, done by Dr. Zhao, has culture positive for Enterococcus (E) faecalis, sensitivity to ampicillin, penicillin, vancomycin, and gentamicin synergy. IMAGING: Knee x-ray: Surgical drain is noted in the suprapatellar bursa. Postoperative changes of swelling and emphysema. Antibiotic beads are seen. IMPRESSION: 1. 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 Patient will be switched to ampicillin 2 grams every 4 hours and Rocephin 2 grams every 12 hours. The patient will need treatment with 6 weeks of intravenous (IV) antibiotic followed by oral antibiotic treatment fro 3-6 months. 2. E. faecalis bacteremia, recurrent. The first episode was end of July, now with recurrence in October makes it concerning for prosthetic valve endocarditis or seating of the pacemaker. Patient will need a transesophageal echocardiogram (ERIC) done. He had one in July, which was negative, as patient has a bioprosthetic mitral valve operated at the [facility]. PLAN: Peripherally inserted central catheter (PICC) line placement on Friday for prolonged IV antibiotic. Patient has to pay for home IV antibiotic, and last hospitalization they had to pay for vancomycin, but the does not think that they can afford another 6 weeks of treatment with ampicillin and Rocephin. Patient may need skilled nursing placement. This will be discussed with patient and family services (PFS), discharge planning, and nursing.
[2018-10-31 02:00] VITALS: BP 127/68
[2018-10-31] MEDS: AMPICILLIN SOD 2 GM in D5W MINI-BAG PLUS 100 ML IV SCH ×6 (02:07→21:01)
[2018-10-31] MEDS: cefTRIAXone SOD 2 GM in D5W MINI-BAG PLUS 50 ML IV SCH ×2 (05:04→16:07)
[2018-10-31] MEDS: PERCOCET 5MG/325MG TAB PO PRN ×3 (05:48→20:59)
[2018-10-31 06:00] VITALS: BP 132/69
[2018-10-31] MEDS: SENOKOT S TAB PO SCH ×2 (09:00→21:00)
[2018-10-31] MEDS: MIRALAX *UNIT DOSE* 17GM PACKET PO SCH (09:00)
[2018-10-31 09:15] LABS: BASO # 0.1 10^3/uL (0.0-0.2); BASO % 1.4 % (0.0-1.0); EOS # 0.2 10^3/uL (0.0-0.50); EOS % 5.9 % (0.0-3.0); HEMATOCRIT 25.7 % (42.0-52.0); HEMOGLOBIN 8.7 g/dl (13.5-17.5); LYMPH # 1.2 10^3/uL (1.5-4.5); LYMPH % 33.1 % (24.0-44.0); MEAN CORPUSCULAR HGB CONC 33.9 g/dl (32.0-36.5); MEAN CORPUSCULAR VOLUME 91.5 fl (80.0-96.0); MONO # 0.4 10^3/uL (0.0-0.8); NEUTROPHILS # 1.7 10^3/uL (1.8-7.7); NEUTROPHILS % 47.5 % (36.0-66.0); PLATELET COUNT, AUTOMATED 186 10^3/uL (150-450); RED BLOOD COUNT 2.81 10^6/uL (4.30-6.10); WHITE BLOOD COUNT 3.5 10^3/uL (4.0-10.0)
[2018-10-31 09:26] LABS: BLOOD UREA NITROGEN 14 MG/DL (7-18); C REACTIVE PROTEIN QUANTITATIV 5.07 MG/DL (0.00-0.30); CALCIUM LEVEL 8.1 MG/DL (8.8-10.2); CARBON DIOXIDE LEVEL 30 MEQ/L (21-32); CHLORIDE LEVEL 104 MEQ/L (98-107); CREATININE FOR GFR 0.58 MG/DL (0.70-1.30); GLOMERULAR FILTRATION RATE > 60.0 (>35); GLUCOSE, FASTING 104 MG/DL (70-100); POTASSIUM SERUM 3.8 MEQ/L (3.5-5.1); SODIUM LEVEL 140 MEQ/L (136-145)
[2018-10-31] MEDS: predniSONE 5 MG TAB PO SCH (09:37)
[2018-10-31] MEDS: MULTIVITAMINS/MINERALS THERAP 1 TAB PO SCH (09:37)
[2018-10-31] MEDS: RIVAROXABAN 10 MG TAB (XARELTO) PO SCH (09:37)
[2018-10-31] MEDS: OMEPRAZOLE 20 MG CAP PO SCH (09:37)
[2018-10-31] MEDS: LACTOBACILLUS ACIDOPHILUS CAP (BACID) PO SCH (09:37)
[2018-10-31] MEDS: METOPROLOL TART 25 MG TABLET PO SCH ×2 (09:38→21:01)
[2018-10-31] MEDS: FERROUS SULFATE 325MG TAB PO SCH (09:38)
[2018-10-31 10:00] VITALS: BP 145/67
--- NOTE | 2018-10-31 12:20 | IPNPDOC ---
Text Note Date of Service The patient was seen on 10/31/18. NOTE Subjective: Feels well. Knee pain improved. No CP/SOB/palpitations. Hb stable. No need for transfusion today Objective: Vitals: (see below) General: No acute distress, laying comfortably in bed. HEENT: Moist mucous membranes. Neck: No JVD or lymphadenopathy Cardiac: RRR, No murmurs Pulm: Clear to auscultation b/l. No wheezing, rhonchi Abd: NT/ND + BS Ext: No cyanosis. Left knee with swelling. Darius bandage intact. Good range of motion. Distal pulses intact. LOLLY drain with serous-sangfluid. Labs (see below) Assessment/Plan 1. Prosthetic knee infection- culture with Enterococcus faecalis-blood culture positive with Enterococcus faecalis as well. S/p vancomycin and Zosyn. Currently on Rocephin and ampicillin per S/p OR for washout 10/28 by orthopedics. Continue antibiotics for 6 weeks per ID. If repeat cultures negative, will need PICC line on Friday. 2. Hypertension controlled continue meds. 3. History of refractory MDS- was scheduled for chemotherapy in the near future, which is currently on hold. 4. History of PPM- will need outpatient cardiology follow-up. 5. 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 6. History of bladder cancer status post resection follows up with Dr. Noyola. 7. History of Enterococcus faecalis bacteremia status post antibiotic therapy. 8. Acute blood loss anemia status post washout, as well as underlying MDS- Stable now. discussed with Dr. Membreno - who does not recommend irradiated blood, as the patient's greater than 70 years old and will not be a candidate for bone marrow transplant. Continue to monitor hemoglobin. Transfuse as needed. Hemodynamically stable. Transfuse total of 2 units PRBC. DVT prophy: As per orthopedics Likely [place] placement for IV Abx/therapy. VS,Fishbone, I+O VS, Fishbone, I+O Laboratory Tests 10/31/18 08:56 Red Blood Count 2.81 L, Mean Corpuscular Volume 91.5, Mean Corpuscular Hemoglobin 31.0, Mean Corpuscular Hemoglobin Concent 33.9, Red Cell Distribution Width 19.3 H, Neutrophils (%) (Auto) 47.5, Lymphocytes (%) (Auto) 33.1, Monocytes (%) (Auto) 11.0 H, Eosinophils (%) (Auto) 5.9 H, Basophils (%) (Auto) 1.4 H, Neutrophils # (Auto) 1.7 L, Lymphocytes # (Auto) 1.2 L, Monocytes # (Auto) 0.4, Eosinophils # (Auto) 0.2, Basophils # (Auto) 0.1, Calcium Level 8.1 L Vital Signs Date Time Temp Pulse Resp B/P (MAP) Pulse Ox O2 Delivery O2 Flow Rate FiO2 10/31/18 10:00 98.5 86 20 145/67 (93) 97 10/29/18 18:42 Room Air 10/29/18 06:00 2.0 10/28/18 18:43 100 I&O- Last 24 Hours up to 6 AM 10/31/18 06:00 Intake Total 2730 ml Output Total 1774 ml Balance 956 ml SUZE FERRO MD Oct 31, 2018 12:20
[2018-10-31 14:00] VITALS: BP 134/70
[2018-10-31 22:00] VITALS: BP 134/69
[2018-11-01] MEDS: AMPICILLIN SOD 2 GM in D5W MINI-BAG PLUS 100 ML IV SCH ×6 (01:31→20:20)
[2018-11-01] MEDS: PERCOCET 5MG/325MG TAB PO PRN ×4 (01:32→21:52)
[2018-11-01 02:00] VITALS: BP 133/60
[2018-11-01] MEDS: cefTRIAXone SOD 2 GM in D5W MINI-BAG PLUS 50 ML IV SCH ×2 (04:48→16:07)
[2018-11-01 06:00] VITALS: BP 146/71
[2018-11-01 08:35] LABS: BASO # 0.1 10^3/uL (0.0-0.2); BASO % 1.5 % (0.0-1.0); EOS # 0.2 10^3/uL (0.0-0.50); EOS % 3.7 % (0.0-3.0); HEMOGLOBIN 9.5 g/dl (13.5-17.5); LYMPH % 23.2 % (24.0-44.0); MEAN CORPUSCULAR HEMOGLOBIN 31.4 pg (27.0-33.0); MEAN CORPUSCULAR HGB CONC 33.9 g/dl (32.0-36.5); MEAN CORPUSCULAR VOLUME 92.4 fl (80.0-96.0); MONO # 0.6 10^3/uL (0.0-0.8); MONO % 13.4 % (0.0-5.0); NEUTROPHILS # 2.3 10^3/uL (1.8-7.7); NEUTROPHILS % 56.7 % (36.0-66.0); PLATELET COUNT, AUTOMATED 202 10^3/uL (150-450); RED BLOOD COUNT 3.03 10^6/uL (4.30-6.10); WHITE BLOOD COUNT 4.1 10^3/uL (4.0-10.0)
[2018-11-01 08:53] LABS: BLOOD UREA NITROGEN 12 MG/DL (7-18); CALCIUM LEVEL 8.8 MG/DL (8.8-10.2); CARBON DIOXIDE LEVEL 31 MEQ/L (21-32); CHLORIDE LEVEL 102 MEQ/L (98-107); CREATININE FOR GFR 0.66 MG/DL (0.70-1.30); GLOMERULAR FILTRATION RATE > 60.0 (>35); GLUCOSE, FASTING 107 MG/DL (70-100); POTASSIUM SERUM 3.8 MEQ/L (3.5-5.1); SODIUM LEVEL 138 MEQ/L (136-145)
[2018-11-01] MEDS: MIRALAX *UNIT DOSE* 17GM PACKET PO SCH (09:00)
[2018-11-01] MEDS: SENOKOT S TAB PO SCH ×2 (09:00→20:19)
[2018-11-01] MEDS: LACTOBACILLUS ACIDOPHILUS CAP (BACID) PO SCH (09:16)
[2018-11-01] MEDS: OMEPRAZOLE 20 MG CAP PO SCH (09:16)
[2018-11-01] MEDS: MULTIVITAMINS/MINERALS THERAP 1 TAB PO SCH (09:16)
[2018-11-01] MEDS: predniSONE 5 MG TAB PO SCH (09:16)
[2018-11-01] MEDS: METOPROLOL TART 25 MG TABLET PO SCH ×2 (09:17→20:20)
[2018-11-01] MEDS: FERROUS SULFATE 325MG TAB PO SCH (09:17)
[2018-11-01] MEDS: RIVAROXABAN 10 MG TAB (XARELTO) PO SCH (09:17)
[2018-11-01 10:00] VITALS: BP 115/68
--- NOTE | 2018-11-01 13:14 | ECHO ---
DATE OF PROCEDURE: 10/30/2018 AGE: 83 Height 64 inches Weight 185 pounds Body surface area 1.9 meters squared Location: Inpatient, [address] [place] [address], room 5143 REFERRING PHYSICIAN: Dr. Jermain Donnelly INDICATIONS: Sepsis. MEASUREMENTS 2-D MEASUREMENTS: RV - 4.3 cm LV - 5.0 cm Septum 1.2 cm Posterior wall 1.2 cm Aortic root 3.6 cm LA - 4.9 cm LVEF 65% DOPPLER MEASUREMENTS: AV - 1.78 meters per second LVOT - 1.05 meters per second LVOT diameter - 2.0 cm MV-E - 180, A 85, E/A ratio 2.1 Early mitral deceleration time 338 milliseconds Mean MV diastolic gradient 5 mmHg PV - 0.8 meters per second Pulmonary artery acceleration time 102 milliseconds RVSP 43 - 48 mmHg IVC - 2.6 cm COMMENTS: Consistent AV sequentially paced rhythm. Paced ventricular complexes have a right bundle branch block configuration in keeping with biventricular stimulation. 2-D and M-mode echocardiography was performed with pulsed, continuous wave, color flow and tissue Doppler studies. Borderline concentric left ventricle hypertrophy with normal wall motion. Moderately dilated left atrium. Cannot comment on LV diastolic function with some mitral valve disorder. Mildly dilated right heart chambers with adequate right ventricular free wall motion but Doppler evidence of at least moderate pulmonary hypertension. Mildly dilated inferior vena cava with reduced respiratory collapse in keeping with an elevated central venous pressure. Aortic valvular sclerosis without stenosis but trace insufficiency. Normal aortic root size. Bioprosthetic mitral valve with appropriate function - no significant LV inflow tract obstruction and only very mild insufficiency. Echogenic tricuspid annulus consistent with prior tricuspid valve repair. No RV inflow tract obstruction but still at least mild and possibly moderate tricuspid insufficiency. Pacing leads could be visualized traversing right heart structures but no other separate intracardiac mass. No pericardial effusion. If endocarditis is seriously suspect in this patient with sepsis, especially with his mitral valve, a transesophageal echo would be the preferred investigation.
[2018-11-01 14:00] VITALS: BP 129/63
[2018-11-01 22:00] VITALS: BP 148/72
[2018-11-02] MEDS: AMPICILLIN SOD 2 GM in D5W MINI-BAG PLUS 100 ML IV SCH ×6 (01:14→21:28)
[2018-11-02 02:00] VITALS: BP 137/69
[2018-11-02] MEDS: cefTRIAXone SOD 2 GM in D5W MINI-BAG PLUS 50 ML IV SCH ×2 (04:12→16:10)
[2018-11-02 06:00] VITALS: BP 149/92
[2018-11-02] MEDS: ACETAMINOPHEN TAB 650MG DOSE (2X325MG) PO PRN (06:24)
[2018-11-02 06:42] LABS: HEMATOCRIT 25.9 % (42.0-52.0); HEMOGLOBIN 8.4 g/dl (13.5-17.5); MEAN CORPUSCULAR HEMOGLOBIN 30.7 pg (27.0-33.0); MEAN CORPUSCULAR HGB CONC 32.4 g/dl (32.0-36.5); MEAN CORPUSCULAR VOLUME 94.5 fl (80.0-96.0); PLATELET COUNT, AUTOMATED 195 10^3/uL (150-450); RED BLOOD COUNT 2.74 10^6/uL (4.30-6.10); WHITE BLOOD COUNT 3.5 10^3/uL (4.0-10.0)
[2018-11-02 07:07] LABS: BLOOD UREA NITROGEN 15 MG/DL (7-18); CALCIUM LEVEL 8.6 MG/DL (8.8-10.2); CARBON DIOXIDE LEVEL 28 MEQ/L (21-32); CHLORIDE LEVEL 105 MEQ/L (98-107); CREATININE FOR GFR 0.59 MG/DL (0.70-1.30); GLOMERULAR FILTRATION RATE > 60.0 (>35); GLUCOSE, FASTING 118 MG/DL (70-100); POTASSIUM SERUM 3.4 MEQ/L (3.5-5.1); SODIUM LEVEL 140 MEQ/L (136-145)
[2018-11-02 07:18] LABS: BASOPHILS 2 % (0-4); EOSINOPHILS 6 % (0-5); LYMPHOCYTES 33 % (16-52); MONOCYTES 14 % (0-8); NEUTROPHILS 45 % (35-75); PLATELET ESTIMATE NORMAL (NORMAL)
[2018-11-02 07:19] LABS: ANISOCYTOSIS 2+; OVALOCYTES 1+; POIKILOCYTOSIS 1+
[2018-11-02] MEDS ORDERED: POTASSIUM CHLORIDE 10 MEQ SR TABLET PO ONE (08:00)
[2018-11-02 08:24] VITALS: BP 140/66
[2018-11-02] MEDS: FERROUS SULFATE 325MG TAB PO SCH (09:42)
[2018-11-02] MEDS: SENOKOT S TAB PO SCH ×2 (09:43→21:27)
[2018-11-02] MEDS: METOPROLOL TART 25 MG TABLET PO SCH ×2 (09:44→21:27)
[2018-11-02] MEDS: MULTIVITAMINS/MINERALS THERAP 1 TAB PO SCH (09:44)
[2018-11-02] MEDS: RIVAROXABAN 10 MG TAB (XARELTO) PO SCH (09:45)
[2018-11-02] MEDS: predniSONE 5 MG TAB PO SCH (09:45)
[2018-11-02] MEDS: OMEPRAZOLE 20 MG CAP PO SCH (09:46)
[2018-11-02] MEDS: LACTOBACILLUS ACIDOPHILUS CAP (BACID) PO SCH (09:47)
[2018-11-02] MEDS: MIRALAX *UNIT DOSE* 17GM PACKET PO SCH (09:47)
[2018-11-02] MEDS: PERCOCET 5MG/325MG TAB PO PRN ×3 (10:52→21:28)
[2018-11-02] MEDS ORDERED: LIDOCAINE 1% MDV 20ML VIAL As Ordered ONE (13:28)
[2018-11-02 14:40] VITALS: BP 128/97
[2018-11-02] MEDS ORDERED: SODIUM CHLORIDE 0.9% INJ 10 ML SYR IV PRN (15:15)
[2018-11-02] MEDS: SODIUM CHLORIDE 0.9% INJ 10 ML SYR IV SCH (17:13)
[2018-11-02 22:00] VITALS: BP 130/60
--- NOTE | 2018-11-03 00:18 | IPNPDOC ---
Text Note Date of Service The patient was seen on 11/02/18. Late note. NOTE Subjective: No acute changes overnight. Participating with PT. Hb stable. Pain well controlled. Objective: Vitals: (see below) General: No acute distress, laying comfortably in bed. HEENT: Moist mucous membranes. Neck: No JVD or lymphadenopathy Cardiac: RRR, No murmurs Pulm: Clear to auscultation b/l. No wheezing, rhonchi Abd: NT/ND + BS Ext: No cyanosis. Left knee with swelling. Darius bandage intact. Good range of motion. Distal pulses intact. LOLLY drain has since been removed. Labs (see below) Assessment/Plan 1. Prosthetic knee infection- culture with Enterococcus faecalis-blood culture positive with Enterococcus faecalis as well. S/p vancomycin and Zosyn. Currently on Rocephin and ampicillin per S/p OR for washout 10/28 by orthopedics. Continue antibiotics for 6 weeks per ID. If repeat cultures negative, will need PICC line on Friday. 2. Hypertension controlled continue meds. 3. History of refractory MDS- was scheduled for chemotherapy in the near future, which is currently on hold. 4. History of PPM- will need outpatient cardiology follow-up. 5. 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 6. History of bladder cancer status post resection follows up with Dr. Noyola. 7. History of Enterococcus faecalis bacteremia status post antibiotic therapy. 8. Acute blood loss anemia status post washout, as well as underlying MDS- Stable now. discussed with Dr. Membreno - who does not recommend irradiated blood, as the patient's greater than 70 years old and will not be a candidate for bone marrow transplant. Continue to monitor hemoglobin. Transfuse as needed. Hemodynamically stable. Transfuse total of 2 units PRBC. DVT prophy: As per orthopedics s/p PICC line today. Pending [place] placement for IV Abx/therapy. VS,Fishbone, I+O VS, Fishbone, I+O Laboratory Tests 11/02/18 06:18 Red Blood Count 2.74 L, Mean Corpuscular Volume 94.5, Mean Corpuscular Hemoglobin 30.7, Mean Corpuscular Hemoglobin Concent 32.4, Red Cell Distribution Width 18.3 H, Calcium Level 8.6 L Vital Signs Date Time Temp Pulse Resp B/P (MAP) Pulse Ox O2 Delivery O2 Flow Rate FiO2 11/02/18 22:00 97.7 67 18 130/60 (83) 98 10/29/18 18:42 Room Air 10/29/18 06:00 2.0 10/28/18 18:43 100 I&O- Last 24 Hours up to 6 AM 11/03/18 06:00 Intake Total 1840 ml Output Total 1400 ml Balance 440 ml SUZE FERRO MD Nov 03, 2018 00:18
[2018-11-03] MEDS: AMPICILLIN SOD 2 GM in D5W MINI-BAG PLUS 100 ML IV SCH ×3 (01:06→08:34)
[2018-11-03] MEDS: cefTRIAXone SOD 2 GM in D5W MINI-BAG PLUS 50 ML IV SCH (04:16)
[2018-11-03] MEDS ORDERED: XARE10TA PO (05:49)
[2018-11-03] MEDS ORDERED: PERC5TAB12 PO (05:50)
[2018-11-03 06:00] VITALS: BP 138/68
[2018-11-03] MEDS: SODIUM CHLORIDE 0.9% INJ 10 ML SYR IV SCH (06:01)
[2018-11-03 06:39] LABS: EOS # 0.2 10^3/uL (0.0-0.50); HEMATOCRIT 26.2 % (42.0-52.0); HEMOGLOBIN 8.4 g/dl (13.5-17.5); LYMPH # 1.2 10^3/uL (1.5-4.5); MEAN CORPUSCULAR HGB CONC 32.1 g/dl (32.0-36.5); MEAN CORPUSCULAR VOLUME 96.7 fl (80.0-96.0); MONO # 0.6 10^3/uL (0.0-0.8); MONO % 15.7 % (0.0-5.0); NEUTROPHILS # 1.7 10^3/uL (1.8-7.7); NEUTROPHILS % 44.3 % (36.0-66.0); PLATELET COUNT, AUTOMATED 211 10^3/uL (150-450); RED BLOOD COUNT 2.71 10^6/uL (4.30-6.10); WHITE BLOOD COUNT 3.8 10^3/uL (4.0-10.0)
[2018-11-03 07:06] LABS: BLOOD UREA NITROGEN 11 MG/DL (7-18); CALCIUM LEVEL 8.9 MG/DL (8.8-10.2); CARBON DIOXIDE LEVEL 29 MEQ/L (21-32); CHLORIDE LEVEL 102 MEQ/L (98-107); CREATININE FOR GFR 0.64 MG/DL (0.70-1.30); GLOMERULAR FILTRATION RATE > 60.0 (>35); GLUCOSE, FASTING 114 MG/DL (70-100); POTASSIUM SERUM 3.9 MEQ/L (3.5-5.1); SODIUM LEVEL 138 MEQ/L (136-145)
[2018-11-03 08:33] VITALS: BP 138/68
[2018-11-03] MEDS: predniSONE 5 MG TAB PO SCH (08:33)
[2018-11-03] MEDS: SENOKOT S TAB PO SCH (08:33)
[2018-11-03] MEDS: RIVAROXABAN 10 MG TAB (XARELTO) PO SCH (08:33)
[2018-11-03] MEDS: FERROUS SULFATE 325MG TAB PO SCH (08:33)
[2018-11-03] MEDS: METOPROLOL TART 25 MG TABLET PO SCH (08:33)
[2018-11-03] MEDS: OMEPRAZOLE 20 MG CAP PO SCH (08:33)
[2018-11-03] MEDS: LACTOBACILLUS ACIDOPHILUS CAP (BACID) PO SCH (08:33)
[2018-11-03] MEDS: MULTIVITAMINS/MINERALS THERAP 1 TAB PO SCH (08:33)
[2018-11-03] MEDS: MIRALAX *UNIT DOSE* 17GM PACKET PO SCH (08:34)
--- NOTE | 2018-11-03 10:34 | REP ---
Procedure: PICC line insertion with Luis-Sharri The procedure was performed under the direct supervision of Dr. Ness. The risks and benefits of the procedure were explained to the patient and informed consent was obtained. The right basilic vein was localized using ultrasound guidance. The skin was prepped and draped in a sterile fashion. 2% lidocaine was used as a local anesthetic. Using ultrasound guidance the basilic vein was cannulated and a 0.018 guidewire was inserted and advanced to the SVC using fluoroscopic guidance. The needle was removed and a 5.5 [place] dilator and peel-away sheath was inserted over the guide wire. A 5.5 [place] dual lumen catheter was cut to length of 43 cm. The dilator was removed and the catheter was inserted over the guide wire with the tip ending in the SVC. The peel-away sheath was removed and the catheter was flushed with heparinized saline as per Hospital protocol. The catheter was affixed to the skin and a sterile dressing was applied. The patient tolerated the procedure well and there were no immediate complications. 0.2 minutes of fluoro time was utilized for this procedure. Reviewed by KATHARINA Mendez 11/02/2018 05:21 P Electronically Signed by Antonio Ness MD 11/03/2018 10:25 A
[2018-11-03] MEDS ORDERED: SENN1TAB2 PO (10:54)
[2018-11-03] MEDS: PERCOCET 5MG/325MG TAB PO PRN (12:19)
--- NOTE | 2018-11-03 20:00 | IPN ---
DATE: 11/02/2018 Mr. Ng is anxious to be discharged to [facility] tomorrow. They have accepted him and have of bed. According to nursing, they have agreed to continue ampicillin at 2 grams IV every 4 hours along with Rocephin 2 grams intravenous (IV) every 12 hours. The patient will need 6 weeks of IV antibiotics from operative day, which is October 28 and completion on December 09 and then will need to be switched to oral antibiotic. PHYSICAL EXAMINATION: Temperature is 97.8, pulse 68, respirations 18, blood pressure 128/97, oxygen saturation 100% on room air. HEART: Normal S1, S2. Systolic ejection murmur, 2/6, unchanged. LUNGS: Clear. No wheezes, rales, or rhonchi. ABDOMEN: Soft, nontender. No hepatosplenomegaly. EXTREMITIES: No edema. Left drain from the knee was removed. LABORATORY DATA: White count is 3.5, hemoglobin 8.4, hematocrit 25.9, platelets 195, 45% neutrophils, 33% lymphocytes, 14% monocytes. Sodium 140, potassium 3.4, chloride 105, bicarbonate 28, BUN 15, creatinine 0.59, glucose 118, calcium 8.6. Blood cultures on October 30 were no growth after 72 hours. IMAGING STUDIES: Peripherally inserted central catheter (PICC) line was placed on November 02. Echocardiogram done on October 30 showed a normal functioning bioprosthesis, moderately functioning bioprosthetic mitral valve, normally functioning (cut off), moderately dilated left atrium, mildly dilated inferior vena cava (IVC), aortic valve sclerosis with trace insufficiency. No evidence of vegetation. Moderate tricuspid insufficiency. IMPRESSION: Left knee prosthetic joint infection with Enterococcus faecalis, on IV ampicillin and Rocephin until December 09. Previous history of Enterococcus (E) faecalis bacteremia in July, which most likely seeded his left knee. Transesophageal echocardiogram was done in July, which was negative for vegetation and endocarditis, and repeat transthoracic echo done this admission was negative for endocarditis. PLAN: Continue 6 weeks of IV antibiotics. The patient could be discharged home to the [facility] tomorrow on current regimen. Please obtain complete blood count (CBC), comprehensive metabolic panel (CMP), erythrocyte sedimentation rate (ESR), and C-reactive protein (CRP) weekly. Please have the patient followup in my office in 2-3 weeks. As far as his mild dysphagia is concerned, the patient will need to hold off on any chemotherapy for the next 6 weeks.
--- NOTE | 2018-11-03 20:38 | DSES ---
DATE OF ADMISSION: 10/27/2018 DATE OF DISCHARGE: 11/03/2018 PRIMARY CARE PROVIDER: Dr. Johny Mae INFECTIOUS DISEASE: Dr. Denia Perkins ORTHOPEDIC SURGEON: Dr. Valeriano Zhao FINAL DIAGNOSES: 1. 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 2. History of hypertension. 3. History of myelodysplastic syndrome. 4. History of pacemaker placement. 5. Mitral valve replacement. 6. Tricuspid repair. 7. History of bladder cancer, status post resection. 8. History of Enterococcus faecalis bacteremia, status post antibiotic. 9. Acute blood loss anemia secondary to washout. HISTORY OF PRESENT ILLNESS: This is an 83-year-old male patient with underlying medical history of myelodysplastic syndrome, sees Dr. Rivera, also has bladder cancer status post surgery and not yet on chemotherapy, thrombocytopenia, has an approximately 4 day history of left knee pain and swelling after the patient had missed a step and shakeel his knee. He went to urgent care and was prescribed Levaquin, but it seems like it is not working. The patient was seen by Dr. Zhao in the office with aspiration. Also seen by Dr. Perkins and was sent to the emergency department for a fever of 102.9 and a systolic blood pressure in the 90s. The patient was treated for bacteremia with Enterococcus faecalis. The patient has left knee prosthesis, which seems to be infected. Subsequently, the patient was admitted to the hospital, status post washout by orthopedics. Infectious disease was consulted. Peripherally inserted central catheter (PICC) line was placed. Cultures were appreciated. As per Dr. Perkins, recommended 6 weeks of antibiotics. Physical therapy (PT) was ordered. Arrangements were made to transfer the patient to [facility]. The patient was transfused during the hospitalization due to acute blood loss anemia, status post surgery. Currently, the patient is tolerating oral and ready to be discharged to nursing facility to complete antibiotics and further physical therapy (PT). VITAL SIGNS: Temperature 98.9, pulse 69, respirations 19, blood pressure 138/68, pulse oximetry 95% on room air. LABORATORY DATA: WBC 3.8, hemoglobin and hematocrit 8.4/26.2, platelets 211. Chemistry: Sodium 138, potassium 3.9, chloride 102, bicarbonate 29, BUN 11, creatinine 0.64. PHYSICAL EXAMINATION: GENERAL: The patient is alert, comfortable and in no acute distress. HEENT: Normocephalic, atraumatic. NECK: Supple. CARDIAC: Regular S1, S2. PULMONARY: Bilaterally clear. ABDOMEN: Soft, nontender. EXTREMITIES: Left knee swelling and warmth. A[place]UST[place] bandage intact. DISCHARGE MEDICATIONS: - ampicillin 2 grams IV every 4 hours - Rocephin 2 grams IV twice a day for 6 weeks, end date 12/19/2018 - Percocet 5/325 mg by mouth every 2 hours as needed - Xarelto 10 mg by mouth daily - Senna Plus 8.6/50 mg two tablets by mouth daily - calcium 600 mg by mouth twice a day - chloroxygen 50 mg by mouth at night - vitamin D 2000 units by mouth daily - ferrous sulfate 325 mg by mouth daily - I-Cap by mouth daily - probiotics by mouth daily - losartan 100 mg by mouth at night - magnesium chloride 64 mg by mouth daily - metoprolol 25 mg by mouth twice a day - multivitamin by mouth daily - omeprazole 40 mg by mouth daily - potassium chloride 10 mEq by mouth daily - prednisone 5 mg by mouth daily - lutein 6 mg by mouth daily DISCHARGE INSTRUCTIONS: Please see Dr. Zhao on 11/16/2018 at 10:[address] Perkins on 11/17/2018 at 9:45 a.m. Walker as recommended by orthopedics. Return to the hospital if symptoms worsen. Continue completion of antibiotics as recommended above.
== END 2018-11-03 12:30 | DRG 467 ==
LOC: M ED INP 12:55 → M MS4PR 13:36 → M MS5PR 10-28 16:12
PROVIDERS: ADMIT Internal Medicine; ATTEND Hospitalist
PROC: 0SRW0JZ Replacement of Left Knee Joint, Tibial Surface with Synthetic Substitute, Open Approach (ICD-10-PCS; 2018-10-28)
PROC: 0S9C0ZZ Drainage of Right Knee Joint, Open Approach (ICD-10-PCS; 2018-10-28)
PROC: 3E0U029 Introduction of Other Anti-infective into Joints, Open Approach (ICD-10-PCS; 2018-10-28)
PROC: 0SPW0JZ Removal of Synthetic Substitute from Left Knee Joint, Tibial Surface, Open Approach (ICD-10-PCS; principal; 2018-10-28 14:30)
PROC: 30233N1 Transfusion of Nonautologous Red Blood Cells into Peripheral Vein, Percutaneous Approach (ICD-10-PCS; 2018-10-29)
PROC: 02HV33Z Insertion of Infusion Device into Superior Vena Cava, Percutaneous Approach (ICD-10-PCS; 2018-11-02)
DX: T84.54XA Infection and inflammatory reaction due to internal left knee prosthesis, initial encounter (principal); M00.862 Arthritis due to other bacteria, left knee; D62 Acute posthemorrhagic anemia; D46.9 Myelodysplastic syndrome, unspecified; Y83.1 Surgical operation with implant of artificial internal device as the cause of abnormal reaction of the patient, or of later complication, without mention of misadventure at the time of the procedure; I10 Essential (primary) hypertension; K44.9 Diaphragmatic hernia without obstruction or gangrene; E55.9 Vitamin D deficiency, unspecified; R13.10 Dysphagia, unspecified; D50.9 Iron deficiency anemia, unspecified; K21.9 Gastro-esophageal reflux disease without esophagitis; Z85.51 Personal history of malignant neoplasm of bladder; Z95.3 Presence of xenogenic heart valve; Z87.891 Personal history of nicotine dependence; Z79.52 Long term (current) use of systemic steroids; Z79.899 Other long term (current) drug therapy; Z88.8 Allergy status to other drugs, medicaments and biological substances; Z87.440 Personal history of urinary (tract) infections

== ENCOUNTER → 2018-10-27 | Outpatient (REF) | payer MEDICARE ==
[~2018-10-27] MED LIST changes: +ACETAMINOPHEN TAB 650MG DOSE (2X325MG) PO PRN; +BISACODYL 5 MG TAB PO PRN; +HEPARIN SOD (PORCINE) 5000 UNITS/ML VIAL SC SCH; +MORPHINE 4 MG/ML 1ML VIAL/SYRINGE (J2270) IV PRN; +ONDANSETRON 4 MG TAB (S0181) PO PRN; -PERC5TAB12 PO; +PERCOCET 5MG/325MG TAB PO PRN; +PIPERACILLIN/TAZOBACTAM SOD 2.25 GM in D5W MINI-BAG PLUS 50 ML IV SCH; -SENN1TAB2 PO; +SENOKOT S TAB PO SCH; +VANCOMYCIN HCL 750 MG, VIAL MATE ADAPTER 1 EACH in D5W 250 ML IV SCH; -XARE10TA PO
[2018-10-27 14:43] LABS: CRYSTALS, BODY FLUID NONE SEEN (NONE SEEN); SOURCE, BODY FLUID CRYSTALS RT KNEE
[2018-10-27 15:04] LABS: MUCIN CLOT TEST 4+ (4+); SOURCE, BODY FLUID RT KNEE; SYNOVIAL FLUID COLOR AMBER (YELLOW)
[2018-10-27 15:11] LABS: SOURCE, BODY FLUID GLUCOSE RT KNEE; SOURCE, BODY FLUID URIC ACID RT KNEE; URIC ACID, BODY FLUID 6.1 MG/DL (NOT ESTABLISHED)
[2018-10-27 15:14] LABS: BODY FLUID RHEUMATOID SCREEN NEGATIVE (NEGATIVE)
--- NOTE | 2018-10-27 20:57 | HPEPDOC ---
[facility] Medical History & Physical Date of Admission Oct 27, 2018 History and Physical CHIEF COMPLAINT: HISTORY OF PRESENT ILLNESS: The patient is an 83-year-old man with known myelodysplastic syndrome. He receives azacitidine injections via Dr. Rivera for thrombocytopenia and bladder cancer s/p surgery not yet on chemo, who has approximately a 4-day history of left knee pain and some swelling after he missed a step and shakeel his knee Patient went to ED/urgent care 2 days ago and was placed on levaquin which seems like it wasn't working. He was seen by Dr. Zhao earlier today in his office and he aspirated 70cc of fluid from his knee. He was also seen by Dr. Perkins after and was sent to the ED for fever of 102.9 and sbp in 90s . Prior to this he was treated for bacteremia wit e. faecalis and was on abx which he said he completed 2 weeks ago. Patient has a left knee prosthesis and now the left knee seems to be infected, has swelling and warm. There is concern for left knee infection with hardware involvement. He is planned for OR tomorrow to remove the prosthesis . REVIEW OF SYSTEMS: All 14 points ROS is negative except what's stated in HPI PHYSICAL EXAMINATION: GEN: no acute distress CVS: Normal S1/s2, no murmurs, rubs or gallops, RESP: Lungs are clear to auscultation bilaterally, no crackles, wheezes or rhonchi Abd: soft, nontender, nondistended, + BS MSK: full ROM, left knee with warmth and tenderness, band aid over area which was aspirated, 5/5 strength in all extremities Integumentary: no rash or bruises Neuro: AOAx3, no focal deficit psych: normal mood, good judgement and cooperative PAST MEDICAL HISTORY: 1. Refractory MDS. 2. Hypertension. 3. Hiatal hernia. 4. 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 5. Vitamin D deficiency. 6. Osteoarthritis. 7. Iron deficiency anemia. 8. Hypertension. 9. Gastroesophageal reflux disease (GERD). 10. Bladder cancer, status post resection, follows with Dr. Noyola. HOME MEDICATIONS: see below FAMILY HISTORY: Noncontributory. ALLERGIES: HEPARIN. SOCIAL HISTORY: He is a former smoker, quit 10 years ago. He denies any recent alcohol or illicit drug use. SURGICAL HISTORY: 1. Transurethral resection of bladder tumor times two. 2. Chest tube in 2016. Assessment left knee (septic arthritis) with possible hardware involvement cxr - cardiomegaly - nol present sign of heart failure Plan c/w vanc and zosyn f/u wound and blood cx prn pain meds npo after midnight monitor for sign of endocarditis as well ( no murmur on exam) f/u echo f/u ekg T and S , and coag with AM labs Laboratory Data Labs 24H Laboratory Tests 2 10/27/18 10:00: Body Fluid Source RT KNEE, Body Fluid WBC (Auto) 27737L, Body Fluid RBC (Auto) 10, Body Fluid Mononuclear Cells % Auto 5.3H, Fluid Polymorphonuclear Cell % Auto 94.7H, Body Fluid Crystals NONE SEEN, Body Fluid Crystal Source RT KNEE, Body Fluid Glucose Source RT KNEE, Body Fluid Glucose 5, Body Fluid Uric Acid 6.1, Body Fluid Uric Acid Source RT KNEE, Body Fluid Rheumatoid Factor Screen NEGATIVE, Body Fluid Rheumatoid Factor Source RT KNEE, Synovial Fluid Source RT KNEE, Synovial Fluid Color KELI, Synovial Fluid Appearance CLOUDY, Synovial Fluid Mucin Clot 4+ Microbiology Microbiology 10/27/18 Gram Stain - Final, Resulted 10/27/18 Body Fluid Culture, Resulted Pending Home Medications Scheduled (Icaps) 1 Cap Cap, 1 CAP PO DAILY (Mens Daily Formula/Lycope) 1 Cap Cap, 1 CAP PO DAILY Calcium Carbonate (Calcium) 600 Mg Tab, 600 MG PO BID Chlorophyll (Chloroxygen 50 mg) 1 Cap Cap, 50 MG PO QHS Cholecalciferol (Vitamin D-3) 2,000 Unit Tab, 2,000 UNIT PO DAILY Ferrous Sulfate (Ferrous Sulfate) 325 Mg Tab, 325 MG PO DAILY Lactobacillus Acidophilus (Probiotic) 1 Cap Cap, 1 CAP PO DAILY Levofloxacin Hemihydrate (Levofloxacin) 250 Mg Tab, 250 MG PO BID STARTED / FOR 7 DAYS Losartan Potassium (Losartan Potassium) 100 Mg Tab, 100 MG PO QPM Magnesium Chloride (Mag64) 64 Mg Tabcr, 64 MG PO DAILY Metoprolol Tartrate (Metoprolol Tartrate) 25 Mg Tab, 25 MG PO BID Multivitamins (Centrum Silver Adult 50+) 1 Tab Tab, 1 TAB PO DAILY Omeprazole (Omeprazole) 40 Mg Cap, 40 MG PO DAILY Potassium Chloride (Klor-Con M10) 10 Meq Tabcr, 10 MEQ PO DAILY Prednisone (Prednisone) 5 Mg Tab, 5 MG PO DAILY INCREASES DOSE FOR FLARE UPS Vegetable Enzyme (Lutein) 6 Mg Cap, 6 MG PO DAILY Allergies Coded Allergies: Heparin (Verified Adverse Reaction, Severe, HIT, 09/01/17) GENEVIEVE FONTANEZ MD Oct 27, 2018 20:38
== END ==
LOC: M LAB REF 13:50
PROVIDERS: ATTEND Orthopaedic Surgery
DX: M25.562 Pain in left knee (principal)

== ENCOUNTER → 2019-01-04 | Outpatient (REF) | payer MEDICARE ==
[~2019-01-04] MED LIST changes: +CALC600T60 PO; +CIPR250T3 PO; +ICAPTAB5 PO; +LEVO250T12 PO; +MENSCAP PO; +PERC5TAB12 PO; +PROBCAP14 PO; +SENN1TAB40 PO; -VALS1TAB46 PO; +VALS1TAB66 PO; +XARE10TA PO
== END ==
LOC: M SMT 12:48
PROVIDERS: ATTEND Urology
DX: C67.9 Malignant neoplasm of bladder, unspecified (principal)

== ENCOUNTER → 2019-04-26 | Outpatient (REF) | payer MEDICARE ==
[~2019-04-26] MED LIST changes: +AMOX875T PO; +KETO2CR TOP; +[UNRECOGNIZED DRUG - CODE] PO
== END ==
LOC: M SMT 16:51
PROVIDERS: ATTEND Urology
DX: C67.9 Malignant neoplasm of bladder, unspecified (principal)

== ENCOUNTER 2019-05-19 11:10 | Inpatient (IN) | payer MEDICARE ==
[2019-05-19] VITALS (7 sets, daily range): BP systolic 112–152; BP diastolic 56–88
[~2019-05-19] VITALS: Ht 170.2 cm; Wt 89.1 kg
[2019-05-19] MEDS ORDERED: MOM 30ML SUSPENSION UDC PO PRN (12:45)
[2019-05-19] MEDS ORDERED: AMPICILLIN SOD 500 MG in D5W 50 ML IV SCH (12:45)
[2019-05-19] MEDS ORDERED: ACETAMINOPHEN TAB 650MG DOSE (2X325MG) PO PRN (12:45)
[2019-05-19 15:41] LABS: HEMATOCRIT 25.6 % (42.0-52.0); HEMOGLOBIN 8.8 g/dl (13.5-17.5); MEAN CORPUSCULAR HEMOGLOBIN 32.2 pg (27.0-33.0); MEAN CORPUSCULAR HGB CONC 34.4 g/dl (32.0-36.5); MEAN CORPUSCULAR VOLUME 93.8 fl (80.0-96.0); PLATELET COUNT, AUTOMATED 140 10^3/uL (150-450); RED BLOOD COUNT 2.73 10^6/uL (4.30-6.10); WHITE BLOOD COUNT 7.7 10^3/uL (4.0-10.0)
[2019-05-19 16:10] LABS: ALBUMIN 2.5 GM/DL (3.2-5.2); ALT/SGPT 47 U/L (12-78); BILIRUBIN,TOTAL 0.5 MG/DL (0.2-1.0); BLOOD UREA NITROGEN 14 MG/DL (7-18); CALCIUM LEVEL 8.7 MG/DL (8.8-10.2); CARBON DIOXIDE LEVEL 27 MEQ/L (21-32); CHLORIDE LEVEL 104 MEQ/L (98-107); CREATININE FOR GFR 0.75 MG/DL (0.70-1.30); GLOMERULAR FILTRATION RATE > 60.0 (>35); GLUCOSE, FASTING 115 MG/DL (70-100); MAGNESIUM LEVEL 2.1 MG/DL (1.8-2.4); POTASSIUM SERUM 4.1 MEQ/L (3.5-5.1); SODIUM LEVEL 137 MEQ/L (136-145); TOTAL PROTEIN 6.6 GM/DL (6.4-8.2)
[2019-05-19] MEDS ORDERED: MAGN400T2 PO (16:23)
[2019-05-19] MEDS ORDERED: PANT40TA3 PO (16:23)
[2019-05-19] MEDS ORDERED: AMPI1INJ IJ (16:23)
[2019-05-19] MEDS ORDERED: AMPI2INJ IV (16:23)
[2019-05-19] MEDS ORDERED: POTA10CA32 PO (16:23)
[2019-05-19] MEDS ORDERED: ACET1TAB55 PO (16:23)
[2019-05-19] MEDS ORDERED: ALPR0.25 PO (16:23)
[2019-05-19] MEDS ORDERED: ULTR50TA8 PO (16:23)
[2019-05-19] MEDS ORDERED: FURO40VL IV (16:23)
[2019-05-19] MEDS ORDERED: PROBCAP2 PO (16:23)
[2019-05-19 16:26] LABS: ATYPICAL LYMPH 1 % (0-5); BASOPHILS 2 % (0-1); EOSINOPHILS 1 % (0-3); LYMPHOCYTES 11 % (16-44); MONOCYTES 4 % (0-5); NEUTROPHILS 81 % (28-66); PLATELET ESTIMATE DECREASED (NORMAL); POIKILOCYTOSIS 2+
[2019-05-19 16:27] LABS: OVALOCYTES 1+; SCHISTOCYTES 1+
[2019-05-19] MEDS ORDERED: PROBCAP14 PO (16:29)
[2019-05-19] MEDS ORDERED: OYST1TAB PO (16:36)
[2019-05-19] MEDS ORDERED: ISOVUE-370 76% 100ML VIAL (Q9967) As Ordered ONE (16:42)
--- NOTE | 2019-05-19 16:47 | REP ---
Chest x-ray: Two views. History: Fever. Comparison study October 27, 2018. Findings: Median sternotomy wires are noted. A three lead pacemaker device is seen in the right heart via the left side. Mild cardiomegaly is observed. The thoracic aorta is tortuous as before. Heart size is unchanged. There are are old healed rib fractures on the left. The pleural angles are sharp. No acute infiltrate is seen. Impression: Cardiomegaly with pacemaker. No acute infiltrate. Electronically Signed by Immanuel Mann MD 05/19/2019 04:38 P
[2019-05-19 16:53] LABS: ERYTHROCYTE SEDIMENTATION RATE 108 mm/hr (0-20)
[2019-05-19] MEDS ORDERED: LIDOCAINE VISCOUS 2% SOLN 15ML UDC As Ordered ONE (17:27)
[2019-05-19] MEDS ORDERED: CETACAINE SPRAY 5GM As Ordered ONE (17:27)
--- NOTE | 2019-05-19 17:31 | REPVR ---
EXAM: CT Left Lower Extremity With Contrast, Knee EXAM DATE/TIME: 05/19/2019 5:03 PM CLINICAL HISTORY: 83 years old, male; Condition or disease; Joint replacement status; Knee; Infection complication; Left; Prior surgery; Surgery date: 3-7 days post-operative; Additional info: Left knee postop infection/bacteremia R/O abscess TECHNIQUE: Imaging protocol: CT of the Left lower extremity with intravenous contrast was performed. Exam focused on the knee. Radiation optimization: All CT scans at this facility use at least one of these dose optimization techniques: automated exposure control; mA and/or kV adjustment per patient size (includes targeted exams where dose is matched to clinical indication); or iterative reconstruction. COMPARISON: CR Knee, Ap, Lat 10/28/2018 5:23 PM FINDINGS: Limitations: Examination is slightly limited by metallic artifact. Bones/joints: There appears to be a small to moderate knee joint effusion. Left TKA. Hardware appears intact. No appreciable loosening. No acute fracture. Soft tissues: Focal fatty atrophy of the medial aspect of the soleus muscle. No soft tissue gas. No rim-enhancing soft tissue fluid collection is identified. Prepatellar and suprapatellar subcutaneous edema. Vasculature: Moderate atherosclerotic changes. IMPRESSION: 1. No acute osseous abnormality. 2. Small to moderate knee joint effusion. 3. Prepatellar and suprapatellar subcutaneous edema. Electronically signed by: Mel Limon On 05/19/2019 17:30:54 PM
--- NOTE | 2019-05-19 17:38 | REPVR ---
EXAM: CT Abdomen and Pelvis Without Contrast EXAM DATE/TIME: 05/19/2019 5:03 PM CLINICAL HISTORY: 83 years old, male; Abnormal findings; Abnormal lab test; Elevated wbc; Additional info: Enterococcus bacteremia R/O abscess TECHNIQUE: Imaging protocol: Computed tomography of the abdomen and pelvis without contrast. Radiation optimization: All CT scans at this facility use at least one of these dose optimization techniques: automated exposure control; mA and/or kV adjustment per patient size (includes targeted exams where dose is matched to clinical indication); or iterative reconstruction. COMPARISON: CT ABD PELVIS WITH CONTRAST 08/17/2016 11:04 AM FINDINGS: Limitations: Lack of intravenous contrast material limits evaluation of the vascular and visceral structures. Tubes, catheters and devices: Incompletely imaged cardiac pacemaker. Heart: Mitral annulus calcification. Cardiomegaly. Liver: Normal. No mass. Gallbladder and bile ducts: Cholelithiasis. No pericholecystic fluid or abnormal gallbladder distention. Pancreas: Normal. No ductal dilation. Spleen: Normal. No splenomegaly. Adrenals: Normal. No mass. 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 No hydronephrosis or obstructing calculus. Stomach and bowel: Colonic diverticulosis. No evidence of acute diverticulitis. Appendix: No evidence of appendicitis. Intraperitoneal space: Normal. No free air. No significant fluid collection. Vasculature: Moderate atherosclerotic vascular calcifications. Lymph nodes: Normal. No enlarged lymph nodes. Bladder: Unremarkable as visualized. Reproductive: Prostate gland is upper normal in size. Bones/joints: Degenerative change of the spine. Chronic rib fracture deformities. Bilateral hip joint DJD. Soft tissues: Bilateral gluteus minimus muscle atrophy. IMPRESSION: 1. No acute abnormality is identified within the abdomen/pelvis. 2. Colonic diverticulosis. 3. Cholelithiasis. Electronically signed by: Mel Limon On 05/19/2019 17:37:37 PM
[2019-05-19] MEDS ORDERED: AMPICILLIN SOD 2 GM in D5W MINI-BAG PLUS 100 ML IV ONE (18:00)
[2019-05-19] MEDS ORDERED: oxyCODONE 5MG TAB PO PRN (18:45)
[2019-05-19] MEDS ORDERED: LR 1,000 ML IV SCH (18:45)
[2019-05-19] MEDS ORDERED: fentaNYL 100 MCG/2 ML INJECTION (J3010) IV PRN (18:45)
[2019-05-19] MEDS ORDERED: MIDAZOLAM INJ 2 MG/2 ML VIAL (J2250) As Ordered ONE (18:52)
[2019-05-19] MEDS ORDERED: ONDANSETRON 4MG/2ML VIAL (J2405) As Ordered ONE (18:52)
[2019-05-19] MEDS ORDERED: fentaNYL 100 MCG/2 ML INJECTION (J3010) As Ordered ONE (18:52)
[2019-05-19] MEDS ORDERED: PROPOFOL 200 MG/20 ML VIAL As Ordered ONE (18:52)
[2019-05-19] MEDS ORDERED: LIDOCAINE 2% INJ 100 MG/5 ML SDV (FOR ANES.) As Ordered ONE (18:52)
[2019-05-19] MEDS ORDERED: ACETAMINOPHEN 325 MG TAB PO PRN (19:00)
[2019-05-19 20:28] LABS: CK-MB VALUE MASS < 1.0 NG/ML (<3.6); CPK CREATINE PHOSPHOKINASE 18 U/L (39-308); MB/CK RELATIVE INDEX 5.56 (< OR =4); TROPONIN I 0.04 NG/ML (< 0.10)
[2019-05-19] MEDS: ALPRAZolam 0.25 MG TAB PO SCH (20:34)
[2019-05-19] MEDS: LOSARTAN 50 MG TAB PO SCH (20:34)
[2019-05-19] MEDS: METOPROLOL TART 25 MG TABLET PO SCH (20:35)
--- NOTE | 2019-05-19 22:44 | T-ECHO ---
DATE OF PROCEDURE: 05/19/2019 REFERRING PHYSICIAN: Dr. Johny Mae INDICATION: Enterococcus faecalis bacteremia with sepsis. PREPROCEDURE DIAGNOSIS: Enterococcus faecalis bacteremia with sepsis. 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 PROCEDURE PERFORMED: Transesophageal echocardiogram. SURGEON: Yared Mendoza MD MAINTENANCE JOURNEYMAN: None. CONSCIOUS SEDATION: Propofol as administered by the FRIT COATER. COMPLICATIONS: None. DESCRIPTION OF PROCEDURE: The patient received viscous lidocaine to gargle and swallow. Rhythm was sinus rhythm, P-synchronous ventricular paced. After receiving adequate IV conscious sedation, esophageal intubation was accomplished by Dr. Mendoza without difficulty using a three-dimensional transesophageal echocardiogram probe performed by Dr. Mendoza. The left ventricle appeared to be normal in size and overall systolic function. There was mild paradoxical septal motion. Left ventricle ejection fraction was 60% by visual estimate. Right ventricle appeared normal in size and systolic function. Atrial septum was intact anatomically and by color flow Doppler. No thrombi or spontaneous echo contrast was seen within the atria or their appendages. Aortic valve was three-cuspid and displayed moderate focal thickening and focal calcific deposits. No aortic regurgitation. No aortic stenosis. A bioprosthesis was well seated in the mitral position. No mitral stenosis. Mild mitral regurgitation. A vegetation measuring 0.5 x 0.4 cm was seen attached to the atrial side of one of the cusps of the mitral bioprosthesis. A tricuspid annular sewing ring was present. Very mild tricuspid regurgitation. No pulmonic regurgitation. Pulmonic valve appeared normal. No pericardial effusion. Pacemaker leads were seen coursing through the right atrial and right ventricle cavities. No masses or thrombi were seen attached to the visualized portions of the cardiac rhythm management leads. The distal portion of the aortic arch showed up to moderate atheroma. The visualized portion of the descending thoracic aorta showed mild atherosclerosis. CONCLUSIONS: 1. Small vegetation attached to one of the cusps of the mitral bioprosthesis. Mild regurgitation of the mitral bioprosthesis. No stenosis of the mitral bioprosthesis. 2. Normal overall left ventricle systolic function with mild paradoxical septal motion secondary to right ventricle pacing. Normal regional left ventricle (LV) wall motion and wall thickening elsewhere. 3. Moderate aortic valve sclerosis of a three-cuspid aortic valve. Very mild aortic regurgitation. No aortic stenosis. 4. Presence of endocardial right atrial and right ventricle pacing leads without vegetations attached in the visualized portion of the leads. 5. Moderate atheroma involving the distal portion of the aortic arch and mild atherosclerosis in the descending thoracic aorta.
[2019-05-19] MEDS: traMADol 50 MG TAB PO PRN (23:55)
[2019-05-20] MEDS ORDERED: CYCLOBENZAPRINE 10 MG TAB PO ONE (01:00)
[2019-05-20] MEDS: NAPROXEN 250 MG TAB PO SCH ×3 (01:35→20:07)
[2019-05-20] MEDS ORDERED: MORPHINE 4 MG/ML 1ML VIAL/SYRINGE (J2270) IV ONE (02:45)
[2019-05-20] MEDS: AMPICILLIN SOD 2 GM in D5W MINI-BAG PLUS 100 ML IV SCH ×5 (02:52→23:16)
[2019-05-20 04:00] VITALS: BP 121/58
[2019-05-20 04:16] LABS: BASO # 0.2 10^3/uL (0.0-0.2); BASO % 1.8 % (0.0-1.0); EOS # 0.1 10^3/uL (0.0-0.50); HEMATOCRIT 25.1 % (42.0-52.0); HEMOGLOBIN 8.4 g/dl (13.5-17.5); LYMPH # 1.2 10^3/uL (1.5-4.5); LYMPH % 13.5 % (24.0-44.0); MEAN CORPUSCULAR HGB CONC 33.5 g/dl (32.0-36.5); MEAN CORPUSCULAR VOLUME 92.6 fl (80.0-96.0); MONO % 11.1 % (0.0-5.0); NEUTROPHILS # 5.9 10^3/uL (1.8-7.7); NEUTROPHILS % 67.6 % (36.0-66.0); PLATELET COUNT, AUTOMATED 153 10^3/uL (150-450); RED BLOOD COUNT 2.71 10^6/uL (4.30-6.10); WHITE BLOOD COUNT 8.8 10^3/uL (4.0-10.0)
[2019-05-20 04:27] LABS: BLOOD UREA NITROGEN 15 MG/DL (7-18); CALCIUM LEVEL 8.7 MG/DL (8.8-10.2); CARBON DIOXIDE LEVEL 28 MEQ/L (21-32); CHLORIDE LEVEL 102 MEQ/L (98-107); CK-MB VALUE MASS < 1.0 NG/ML (<3.6); CPK CREATINE PHOSPHOKINASE 20 U/L (39-308); CREATININE FOR GFR 0.79 MG/DL (0.70-1.30); GLOMERULAR FILTRATION RATE > 60.0 (>35); GLUCOSE, FASTING 134 MG/DL (70-100); POTASSIUM SERUM 3.9 MEQ/L (3.5-5.1); SODIUM LEVEL 137 MEQ/L (136-145); TROPONIN I 0.03 NG/ML (< 0.10)
--- NOTE | 2019-05-20 06:13 | ECGEPIP ---
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
[2019-05-20] MEDS: FERROUS SULFATE 325MG TAB PO SCH (07:53)
[2019-05-20] MEDS: OMEPRAZOLE 20 MG CAP PO SCH (07:54)
[2019-05-20] MEDS: METOPROLOL TART 25 MG TABLET PO SCH ×2 (07:54→20:08)
[2019-05-20] MEDS: VITAMIN D 1,000 INTERNATIONAL UNITS TABLET PO SCH (07:54)
[2019-05-20] MEDS: MULTIVITAMINS/MINERALS THERAP 1 TAB PO SCH (07:55)
[2019-05-20] MEDS: POTASSIUM CHLORIDE 10 MEQ SR TABLET PO SCH ×3 (07:55→18:05)
[2019-05-20] MEDS: FUROSEMIDE 40 MG/4 ML VIAL (J1940) IV SCH (07:56)
[2019-05-20] MEDS: MAGNESIUM OXIDE 400 MG TAB (MAG-OX) PO SCH (07:56)
[2019-05-20 08:00] VITALS: BP 114/56
[2019-05-20] MEDS ORDERED: LIDOCAINE 1% MDV 20ML VIAL IM ONE (08:15)
[2019-05-20] MEDS: OYSTER SHELL CALCIUM 500 MG TAB PO SCH (10:51)
[2019-05-20] MEDS: traMADol 50 MG TAB PO PRN (10:52)
[2019-05-20 11:43] VITALS: BP 104/56
--- NOTE | 2019-05-20 12:39 | IPN ---
DATE: 05/20/2019 SUBJECTIVE: The patient denied any fever, chills overnight. He denies pain at the left knee. Telemetry yesterday showed 15 beats of nonsustained V-tac. Potassium and magnesium were normal Denied any chest pain, pressure, tightness, shortness of breath or palpitations. This morning he had two preventricular contractions (PVCs). Patient's white count remains normal. He is continued on ampicillin 2 grams every 6 hours. Repeat blood cultures are negative so far. Patient otherwise denies any nausea, vomiting, abdominal pain, dysuria, urgency, frequency. Continues to complain of occasional shoulder pain. Currently stable with the left knee. OBJECTIVE: Temperature 98, pulse 79, respiratory rate 25, blood pressure 114/56, 95% 2 liters nasal cannula. Generally, patient is awake, alert times three answering questions appropriately. Anicteric sclerae. No jaundice. No jugular venous distention or thyromegaly. Lungs are clear to auscultation. No wheezing, rales or rhonchi. Heart: S1, S2, regular rate and rhythm. Faint 2/6 systolic ejection murmur at the apex. Abdomen, soft, nontender, nondistended, positive bowel sounds in four quadrants. Extremities: Postop left knee. Nontender with slight edema, no erythema. Range of motion, flexion, extension intact. LABS: White count 8.8, hemoglobin 8.4, hematocrit 25, platelet count 153, ESR 108, sed rate 12.9, procalcitonin pending. Sodium 137, potassium 3.9, chloride 102, bicarbonate 28, BUN 15, creatinine 0.7 and glucose of 134. Troponin 0.03. Two sets of blood cultures are pending. Imaging study: Chest x-ray 05/19/2019: Cardiomegaly with pacemaker. No acute infiltrate. CT abdomen and pelvis 05/19/2019: No acute abnormality within abdomen and pelvis. Colonic diverticulosis, cholelithiasis. Knee CT: A small to moderate knee joint effusion. Left total knee arthroplasty. Hardware appears to be intact. No appreciable loosening. No acute fracture. Focal fatty atrophy of the medial aspect of soleus muscle. No soft tissue gas. No rim-enhancing soft tissue fluid collection is identified. Prepatellar and suprapatellar subcutaneous edema, moderate atherosclerotic changes. Transesophageal echocardiogram: Small vegetation attached to one of cusps of the mitral bioprosthesis. Mild regurgitation of mitral bioprosthesis. No stenosis of the mitral bioprosthesis. Normal overall left ventricle systolic function with mild paradoxical septal motion secondary to right ventricular pacing. Normal regional left ventricle wall motion and wall thickening elsewhere. Very mild aortic regurgitation in the cardia, right atrial, right ventricular pacing leads without vegetation attached at the visual portions of the leads. Moderate atheroma involving the distal portion of the aortic arch and mild atherosclerosis in the ascending thoracic aorta. ASSESSMENT/PLAN: This is an 83-year-old male with a history of myelodysplastic syndrome, with recurrent Enterococcus faecalis bacteremia first episode in July 2018 with negative transesophageal echocardiogram treated with 4 weeks of intravenous vancomycin, subsequently developing recurrent infection on 10/27/2018 with prosthetic joint infection left knee and negative transthoracic echocardiogram treated with six weeks of intravenous ampicillin and Rocephin until November 2018 followed by oral amoxicillin, discontinued on 03/14/2019. Patient presented to [facility] with complaints of rigors and fever initially thought to be urinary tract infection (UTI) since patient had recent cystoscopy. Urine culture at [facility] was no growth. Patient developed Enterococcus faecalis bacteremia and subsequently transferred to [facility] for transesophageal echocardiogram and infectious disease cleaning validation consultant. CURRENT ISSUES: 1. Endocarditis with Enterococcus faecalis: Patient had transesophageal echocardiogram done on 05/19/[address] Yared Mendoza showing a small vegetation in mitral valve on the bioprosthetic porcine valve currently with mild regurgitation. Use intravenous ampicillin. Infectious disease specialist Dr. Denia Perkins has been consulted. Urine culture from [facility] is negative despite recent cystoscopy. Patient currently has a small to moderate effusion of the left knee. Orthopaedic surgeon has been consulted to rule out left knee infected hardware as possible source of infection. 2. Myelodysplastic syndrome: Previously followed with Dr. Rivera at the [facility] currently with stable hemoglobin and platelet count. No signs of active bleeding. 3. History of atrial fibrillation status post pacemaker: Pacer lead does not appear to be infected on transesophageal echogram. 4. Hypertensive heart disease: Patient has been resumed on his home dose of losartan, metoprolol. 5. Anemia of chronic disease and history of myelodysplastic syndrome. Continue on the ferrous sulfate. 6. Reflux: Continue on Prilosec. 7. History of bladder cancer status post resection: Follows Dr. Noyola with recent cystoscopy a week ago. Urine culture is negative.
--- NOTE | 2019-05-20 12:42 | CR ---
DATE OF CONSULTATION: 05/20/2019 I was asked to evaluate the patient for his left knee. The patient is well known to me and I have also discussed this in detail with Dr. Perkins on a couple of occasions in the past two days. He had an infected left total knee arthroplasty earlier this year that I treated with an irrigation and debridement and a polyethylene exchange with antibiotic beads and prolonged antibiotic for an Enterococcus faecalis infection. He has done very well clinically with that knee. He was seen in the office a couple of days ago because he has been treated at [place] for the Enterococcus faecalis bacteremia noted on blood cultures. Dr. Mae wanted to make sure that there were no issues with the knee prosthesis. The patient has had no complaints of knee pain. He has had no effusion. No irritability with range of motion. He says it does not feel anything like his knee did when it was infected earlier this year. On exam, he is an otherwise healthy, but a little bit sedated gentleman in no acute distress. He has a white count of 8.8, hemoglobin 8.4 with hematocrit of 25.1 and his platelets are 153 and he does tend to run low. His sed rate yesterday was 108. CRP most recently was 12.9. Blood cultures are pending. IMPRESSION: 1. Doing well with the left knee prosthesis. There has been an echocardiogram done that was consistent with endocarditis and the patient is being treated medically for that. He did have a CT scan apparently yesterday of his knee that showed a small to moderate knee joint effusion, some subcutaneous edema, but no acute abnormality. Based on his clinical findings of his knee and his history with no symptoms in his left knee, I do not see any reason to aspirate. He and his daughter were very much against it. If the clinical picture changes, please let us know. Will certainly need prolonged IV antibiotic therapy for his endocarditis. On a side note, I did see the patient about a week and a half ago and scheduled him for a right knee arthroplasty which is obviously going to be put on hold until his medical situation stabilizes.
[2019-05-20] MEDS ORDERED: NALBUPHINE HCL 10 MG/ML AMP (J2300) IV PRN (14:00)
[2019-05-20] MEDS ORDERED: diphenhydrAMINE INJ 50MG/ML VIAL (J1200) IV PRN (14:00)
[2019-05-20] MEDS ORDERED: MORPHINE 1MG/ML IN 0.9% NACL 100ML IV BAG IV PRN (14:00)
[2019-05-20] MEDS ORDERED: NALOXONE INJ 0.4 MG/1 ML VIAL (J2310) IV PRN (14:00)
[2019-05-20] MEDS ORDERED: ONDANSETRON 4MG/2ML VIAL (J2405) IV PRN (14:00)
[2019-05-20] MEDS ORDERED: EPIDURAL/PCA KEYS XX PRN (14:00)
[2019-05-20] MEDS ORDERED: KETOROLAC 30 MG/ML VIAL (J1885) IV ONE (14:15)
[2019-05-20] MEDS: NS 1,000 ML IV SCH (15:38)
[2019-05-20 16:00] VITALS: BP 108/55
--- NOTE | 2019-05-20 16:51 | REP ---
At abdominal series three views including PA chest and supine upright abdomen: PA chest: Comparison is the PA and lateral chest of 05/19/2019. Cardiomegaly, sternotomy wires and triple lead biventricular pacemaker are again identified, unchanged. Lung nguyen otherwise clear. There is no free subdiaphragmatic air. Abdomen, supine upright views: Comparison is the abdomen/pelvis CT dated 05/19/2019. The there are mildly dilated small bowel loops in a nonspecific pattern. There are no air-fluid levels. There are no calcifications. The skeletal structures and soft tissues otherwise are unremarkable except for degenerative disc disease in the lumbar spine. Impression: Nonspecific bowel gas pattern. Electronically Signed by Antonio Lozano MD 05/20/2019 04:42 P
--- NOTE | 2019-05-20 17:48 | CR ---
DATE OF CONSULTATION: 05/20/2019 REFERRING PROVIDER,: Dr. Johanna Church CHIEF COMPLAINT: Acute left thoracic pain. HISTORY OF PRESENT ILLNESS: Atul was admitted for a transesophageal electrocardiogram yesterday with a history of sepsis. He developed acute onset of left mid thoracic pain that radiated anteriorly last evening. Multiple attempts to control with his pain have been futile. Today he is accompanied with his and daughter at the bedside. He is awake, alert. States he has episodic severe, sharp pain in the left quadrant, following an intercostal pattern. Pain is aggravated with movement. A morphine patient-controlled analgesia (MEDICAL SCIENTIFIC LIAISON) has been ordered, and he is about to get started with this. History of polyarthralgia and is on daily prednisone through a tombstone erector in [place]. He currently is not receiving this. Discussed treatment options with both he and his family members. PAST MEDICAL HISTORY: 1. Myelodysplastic syndrome. 2. History of atrial fibrillation status post pacemaker. 3. Hypertensive heart disease. 4. Anemia of chronic disease. 5. Gastroesophageal reflux disease (GERD). 6. History of bladder cancer status post resection. PHYSICAL EXAMINATION: Awake, alert. No acute distress. VITAL SIGNS: 97.7, 74, 20, blood pressure (BP) 104/56, pulse oximetry of 94% on 2 liters oxygen. CARDIAC: S1, S2, normal rate and rhythm. RESPIRATORY: Lung sounds are clear. Respirations nonlabored. Inspection: Small papule in the dermatomal track, mid axillary left. The patient is hypersensitive to light touch in a dermatomal pattern, approximately T10-12 to mid axillary. ASSESSMENT: 1. Acute left-sided pain. 2. Neuropathic pain. PLAN: Discussed possibility of shingles-like pain presentation with his daughter. There is one lesion, but that is of unknown etiology on that dermatomal track that is sensitive. I would recommend a trial of gabapentin 300 mg twice a day for the next 2-3 days and consider increasing to three times a day. Continue with trial of morphine MEDICAL SCIENTIFIC LIAISON. Depending on your thoughts regarding infectious status and the use of steroid medication, consider restarting his home prednisone dose. Thank you for allowing us to participate in the care of your patient. If you have any questions or concerns please do not hesitate to contact me.
[2019-05-20] MEDS: cefTRIAXone SOD 2 GM in D5W MINI-BAG PLUS 50 ML IV SCH (18:04)
[2019-05-20 19:51] VITALS: BP 108/58
[2019-05-20] MEDS: ALPRAZolam 0.25 MG TAB PO SCH (20:08)
[2019-05-20] MEDS: LOSARTAN 50 MG TAB PO SCH (20:08)
--- NOTE | 2019-05-20 20:45 | CR ---
DATE OF CONSULTATION: 05/20/2019 HISTORY OF PRESENT ILLNESS: Mr. Ng was admitted with endocarditis. He has a history of a previous septic left total knee. They were concerned that this may be the cause of his recent bout of endocarditis. Orthopedics was consulted. Health survey was reviewed and amended in the chart. Pertinent positives and negatives were noted. PHYSICAL EXAMINATION: Reveals a well-developed, well-nourished in no acute distress, alert male who was up in his chair eating his breakfast this morning. He was getting intermittent sharp pains from the left abdominal region. He stated these started 3 days ago. Otherwise she has been doing well. He denies any pain with the knee. No issues in the last couple of weeks with the left knee. He states he was in the office recently, and they tried to aspirate his knee to no avail. Examination of the knee revealed a well-healed surgical scar. No obvious effusion. No tenderness to palpation. He showed full active range of motion without pain. He showed 5/5 strength without pain. He was stable to varus and valgus stress. Calf was soft and nontender. There were no palpable cords. The limb was neurovascularly intact. IMAGES: CT scan was reviewed showing suprapatellar effusion. I did not appreciated today's exam. IMPRESSION: 1. Endocarditis. 2. Status post left total knee, doing well and without signs of left knee sepsis. PLAN: At this point, I do not believe that the left total knee arthroplasty is a cause of his endocarditis. He is completely asymptomatic with the knee. Should he wish to followup in the office upon discharge, we would be happy to see him.
[2019-05-20 23:59] VITALS: BP 111/57
[2019-05-21] MEDS: AMPICILLIN SOD 2 GM in D5W MINI-BAG PLUS 100 ML IV SCH ×6 (03:20→22:54)
[2019-05-21 04:00] VITALS: BP 112/58
[2019-05-21 05:57] LABS: BASO # 0.1 10^3/uL (0.0-0.2); BASO % 1.4 % (0.0-1.0); EOS # 0.1 10^3/uL (0.0-0.50); EOS % 1.7 % (0.0-3.0); HEMATOCRIT 25.7 % (42.0-52.0); HEMOGLOBIN 8.3 g/dl (13.5-17.5); LYMPH # 0.8 10^3/uL (1.5-4.5); LYMPH % 10.4 % (24.0-44.0); MEAN CORPUSCULAR HEMOGLOBIN 30.6 pg (27.0-33.0); MEAN CORPUSCULAR HGB CONC 32.3 g/dl (32.0-36.5); MEAN CORPUSCULAR VOLUME 94.8 fl (80.0-96.0); MONO # 1.1 10^3/uL (0.0-0.8); MONO % 13.9 % (0.0-5.0); NEUTROPHILS # 5.4 10^3/uL (1.8-7.7); NEUTROPHILS % 68.5 % (36.0-66.0); PLATELET COUNT, AUTOMATED 147 10^3/uL (150-450); RED BLOOD COUNT 2.71 10^6/uL (4.30-6.10); WHITE BLOOD COUNT 7.9 10^3/uL (4.0-10.0)
[2019-05-21 06:17] LABS: BLOOD UREA NITROGEN 20 MG/DL (7-18); CALCIUM LEVEL 8.8 MG/DL (8.8-10.2); CARBON DIOXIDE LEVEL 28 MEQ/L (21-32); CHLORIDE LEVEL 101 MEQ/L (98-107); CREATININE FOR GFR 0.89 MG/DL (0.70-1.30); GLOMERULAR FILTRATION RATE > 60.0 (>35); GLUCOSE, FASTING 111 MG/DL (70-100); SODIUM LEVEL 138 MEQ/L (136-145)
[2019-05-21] MEDS: cefTRIAXone SOD 2 GM in D5W MINI-BAG PLUS 50 ML IV SCH ×2 (06:22→18:08)
[2019-05-21 07:51] VITALS: BP 106/55
[2019-05-21] MEDS: POTASSIUM CHLORIDE 10 MEQ SR TABLET PO SCH ×3 (08:34→18:07)
[2019-05-21] MEDS: OMEPRAZOLE 20 MG CAP PO SCH (08:34)
[2019-05-21] MEDS: VITAMIN D 1,000 INTERNATIONAL UNITS TABLET PO SCH (08:34)
[2019-05-21] MEDS: NAPROXEN 250 MG TAB PO SCH ×2 (08:34→21:15)
[2019-05-21] MEDS: OYSTER SHELL CALCIUM 500 MG TAB PO SCH (08:34)
[2019-05-21] MEDS: FERROUS SULFATE 325MG TAB PO SCH (08:34)
[2019-05-21] MEDS: METOPROLOL TART 25 MG TABLET PO SCH ×2 (08:35→21:16)
[2019-05-21] MEDS: MULTIVITAMINS/MINERALS THERAP 1 TAB PO SCH (08:35)
[2019-05-21] MEDS: FUROSEMIDE 40 MG/4 ML VIAL (J1940) IV SCH (08:36)
[2019-05-21] MEDS: MAGNESIUM OXIDE 400 MG TAB (MAG-OX) PO SCH (08:36)
[2019-05-21] MEDS: MORPHINE 15 MG SA TAB PO SCH ×2 (09:00→21:17)
--- NOTE | 2019-05-21 09:37 | CR ---
DATE OF CONSULTATION: 05/20/2019 INFECTIOUS DISEASE CONSULTATION Asked to consult by hospitalist for evaluation of recurrent Enterococcus faecalis bacteremia. HISTORY OF PRESENT ILLNESS: Mr. Ng is an 82-year-old gentleman who has a history of aortic valve bioprosthesis initially admitted to [facility] in August 18 with E faecalis bacteremia. The patient had a transesophageal echocardiogram during that hospitalization which was negative. He was treated with 4 weeks of IV vancomycin with resolution of his symptoms. ERIC showed an aortic valve sclerosis, mild aortic regurgitation. The bioprosthetic mitral valve showed no significant MR and he had mild TR. There was no evidence of vegetations on the pacer leads or the valve. He did well until October 27 when the patient has recurrent fever, chills and at this point he had developed a left knee effusion. He was diagnosed with prosthetic joint infection of his left knee prosthesis. He was taken to the operating room by orthopedic surgery, had an I D synovectomy done and had a transthoracic echocardiogram which had no vegetation. The patient was treated with 6 weeks of IV ampicillin and Rocephin followed by 3 months of oral ampicillin. All his symptoms had resolved including the pain in the left knee. The patient was doing well on April 27, he was seen as an outpatient to be cleared for a total knee replacement on the right side. He had no fever or chills until May 11 when he developed rigors, chills was seen by his primary care provider had lab work done including a CBC which his white count was elevated at 27,000 and two sets of blood cultures drawn on 05/12 were positive for Enterococcus faecalis. The patient was treated at [facility] and was transferred to [facility] for a transesophageal echocardiogram on December 17. The patient had a ERIC done by Dr. Mendoza which showed a infection of the mitral valve bioprosthesis with a small vegetation on one of the cusps with mild mitral regurgitation. His ejection fraction is 60%. PAST MEDICAL HISTORY: Is significant for bladder cancer for which he gets a cystoscopy done every 3 months. The patient had a cystoscopy done [address] Noyola, urine culture was negative. History of mild dysplasia with thrombocytopenia follows up with Dr. Medrano. Enterococcus faecalis recurrent bacteremia. History of atrial fibrillation, rib fracture. PAST SURGICAL HISTORY: History of bioprosthetic mitral valve done at the [facility] somewhere around 2013 and a pacemaker insertion by Dr. Vizcaino. Chest tube placement in July of 2016, TURBT times two, cystoscopy every 3 months most recently done in April of [address] Noyola. FAMILY HISTORY: Both parents . Brother has bladder carcinoma as well. MEDICATIONS: - Morphine as needed - Zofran as needed - vitamin D 2000 units daily - calcium carbonate 1000 mg by mouth daily - ferrous sulfate 325 mg daily - furosemide 40 mg IV daily - mag oxide 400 mg by mouth daily - multivitamin one tablet by mouth daily - omeprazole 40 mg daily - ampicillin 2 grams IV every 6 hours - alprazolam 0.25 mg by mouth at bedtime - losartan 100 mg by mouth daily - metoprolol 25 mg by mouth twice a day - naproxen 500 mg by mouth twice a day - tramadol 50 mg by mouth every 6 as needed - Tylenol as needed ALLERGIES: HEPARIN. LABORATORY DATA: White count 8.8, hemoglobin 8.4, hematocrit 25.1, platelets 153. ESR 108. Sodium 137, potassium 3.9, chloride 102, bicarb 27, BUN 15, creatinine 0.79, glucose 134, calcium 8.7, CPK 20. Procalcitonin 0.16. CRP 12.9. Clood cultures done at [facility] on 05/19 two sets were no growth after 24 hours. 05/20 blood cultures are pending. IMAGING: Abdominal x-ray shows nonspecific bowel gas pattern. Knee CT no acute osseous abnormality, small to moderate knee joint effusion and prepatellar edema of the left knee. CT abdomen and pelvis done on 05/19 shows no acute abnormality with colonic diverticulosis and cholelithiasis but this was done without contrast. Chest x-ray - cardiomegaly with pacemaker, no acute infiltrate. PHYSICAL EXAMINATION: On physical exam he is a pleasant, healthy looking, elderly gentleman in mild discomfort from left rib pain. Neck: Supple. No JVD. No bruits. Heart: Normal S1-S2. No significant murmurs appreciated. No rubs or gallops. Lungs: Few crackles at the left base. Abdomen: Is soft, tender in the left upper quadrant. Mostly along the rib cage. It is superficial tenderness. Abdomen is distended. Bowel sounds are present. Back: No CVA tenderness. He definitely has left-sided rib tenderness along the seen dermatome as the anteriorly. Extremities: +1 ankle edema bilaterally. No clubbing or cyanosis. No petechiae. No lesions suggestive of endocarditis. Neurologic: Exam alert and oriented times three. Motor strength 5/5 bilaterally upper extremities and lower extremities normal. Cranial nerves intact. Musculoskeletal exam: Left knee prosthesis with normal range of motion of the knee. No redness or effusion. Right knee normal range of motion. Shoulders bilateral range of motion, normal with minimal tenderness on the right side. I do not see any evidence of infection in his joints. IMPRESSION: 83-year-old gentleman with bioprosthetic mitral valve pacemaker who has had three distinct episodes of Enterococcus faecalis bacteremia, initial episode July of 2018 treated with 4 weeks of IV vancomycin recurrent episode in October 27, 2018 with seeding of his left prosthetic knee, status post I D and 6 weeks of IV ampicillin, Rocephin followed by 3 months of oral amoxicillin with normalization in sed rate and CRP. Two months after antibiotics were discontinued the patient has recurrent E faecalis bacteremia, now with evidence of seeding of the mitral valve. I am concerned that the patient will not clear unless this valve is removed and possibly the pacemaker. PLAN: Referral to a tertiary care center. The patient's family will discuss whether he would like to go back to the [facility] where the original surgery was done of his prosthetic valve versus [facility]. PICC line insertion tomorrow. Increase his dose of IV ampicillin to 2 grams every 4 hours and add Rocephin 2 grams every 12 hours. As far as the thoracic pain is concerned it may be septic emboli to the spleen versus just muscular versus early zoster, this needs to be followed up at this point. Consider repeating CT abdomen with contrast if pain persists. Case has been discussed with Dr. Church regarding his need for transfer to a tertiary care center.
[2019-05-21 11:58] VITALS: BP 107/56
--- NOTE | 2019-05-21 13:11 | IPNPDOC ---
Subjective Date Seen The patient was seen on 05/21/19. Subjective Chief Complaint/HPI This AM patient states he feels well. He denies any acute complaints. He states his pain is controlled with the LANDSCAPE SUPERVISOR, he has needed a total dose of 6mg IV morphine overnight. He is aware of discussion of possible transfer to [facility] or [facility], I discussed with patient and grandson at bedside as well and they are awaiting patients to continue discussions to make a decision on if he is willing to be transferred. General: Denies: Chills, Night Sweats, Malaise Constitutional: Denies: Chills, Fever Eyes: Denies: Vision change ENT: Denies: Head Aches, Dysphagia Skin: Denies: Rash, Lesions Pulmonary: Denies: Dyspnea, Cough, Pleuritic Chest Pain Cardiovascular: Denies: Chest Pain, Palpitations, Orthopnea, Edema Gastrointestinal: Denies: Nausea, Vomiting, Abdominal Pain, Diarrhea, Constipation Genitourinary: Denies: Dysuria Hematologic: Denies: Bruising, Bleeding Excessively Endocrine: Denies: Polydipsia Musculoskeletal: Reports: Back Pain; Denies: Neck Pain, Hand Pain, Leg Pain, Foot Pain Neurological: Denies: Weakness, Numbness Psych: Reports: Mood Normal; Denies: Anxiety, Depression Other systems Objective Physical Examination General Exam: Positive: Alert, Cooperative, No Acute Distress Eye Exam: Positive: EOMI ENT Exam: Positive: Atraumatic, Mucous membr. moist/pink Neck Exam: Positive: Supple; Negative: JVD, thyromegaly Chest Exam: Positive: Clear to auscultation, Normal air movement; Negative: Rhonchi, Wheezing Heart Exam: Positive: Rate Normal, Normal S1, Normal S2; Negative: Murmurs, Rubs Telemetry: Positive: PVCs Abdomen Exam: Positive: Normal bowel sounds, Soft; Negative: Tenderness, Hepatospenomegaly, Mass Extremity Exam: Positive: Normal pulses; Negative: Clubbing, Cyanosis, Edema Skin Exam: Positive: Nl turgor and temperature Neuro Exam: Positive: Normal Speech, Strength at 5/5 X4 ext, Normal Tone, Sensation Intact, Cranial Nerves 3-12 NL Psych Exam: Positive: Mental status NL, Mood NL Other physical findings Left back just superior to iliac crest there is point tenderness to palpation, no overlying erythema, warmth, overlying lesions. No pain to surrounding structures, causing some impairment in movement due to pain. Assessment /Plan Assessment This is an 83-year-old male with a history of myelodysplastic syndrome, with recurrent Enterococcus faecalis bacteremia first episode in July 2018 with negative transesophageal echocardiogram treated with 4 weeks of intravenous va ncomycin, subsequently developing recurrent infection on 10/27/2018 with prosthetic joint infection left knee and negative transthoracic echocardiogram treated with six weeks of intravenous ampicillin and Rocephin until November 2018 followed by oral amoxicillin, discontinued on 03/14/2019. Patient presented to [facility] with complaints of rigors and fever initially thought to be urinary tract infection (UTI) since patient had recent cystoscopy. Urine culture at [facility] was no growth. Patient developed Enterococcus faecalis bacteremia and subsequently transferred to [facility] for transesophageal echocardiogram and infectious disease biztalk consultant. Plan/VTE VTE Prophylaxis Ordered?: Yes Plan 1. 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 Perkins consulted, appreciate recs. Possible etiology of recurrent E. Fecalis bacteremia due to infected valve vs pacemaker, likely needs referral to [facility]. Family discussing transfer at this time will follow up. -PICC line insertion -Continue Ampicillin 2g q4, Ceftriaxone 2g q12 -Orthopedic Surgery, Dr. Zhao has evaluated patient, does not believe there needs to be drainage or replacement of hardware at this time. Will continue to follow up in his clinic if discharged. -ERIC 05/20/19 reviewed: Small vegetation attached to one of the cusps of the mitral bioprosthesis. Mild regurgitation of the mitral bioprosthesis. Presence of endocardial right atrial and right ventricle pacing leads without vegetation attached in the visualized portion of the leads. EF 60%. 2. Left back pain requiring Morphine LANDSCAPE SUPERVISOR to control. -Pain management consulted. CT Abd/Pelvis on admission did not note any abnormalities however given endocarditis can possibly be septic emboli, if pain does not improve or worsens will consider repeat imaging. -Pain is controlled with LANDSCAPE SUPERVISOR. Continue Naproxen 500mg BID. I do not believe this is a neuropathic pain as clinically it is focally tender without radiation and presentation, will not start Gabapentin at this time. -Start MS contin 15mg BID, monitor LANDSCAPE SUPERVISOR use, if not using significant doses can continue to adjust PO meds and d/c LANDSCAPE SUPERVISOR tomorrow. -Monitor for signs of sedation. 3. Myelodysplastic syndrome: Previously followed with Dr. Rivera at the [facility] currently with stable hemoglobin and platelet count. No signs of active bleeding. 4. History of atrial fibrillation status post pacemaker: Pacer lead does not appear to be infected on transesophageal echogram. Unclear why patient is not on anticoagulation however currently paced rhythm not in A. fib, can monitor. 5. Hypertensive heart disease: Patient has been resumed on his home dose of losartan, metoprolol. 6. Anemia of chronic disease and history of myelodysplastic syndrome. Continue on the ferrous sulfate. 7. Reflux: Continue on Prilosec. 8. History of bladder cancer status post resection: Follows Dr. Noyola with recent cystoscopy a week ago. Urine culture is negative. VS, I&O, 24H, Fishbone Vital Signs/I&O Vital Signs Date Time Temp Pulse Resp B/P (MAP) Pulse Ox O2 Delivery O2 Flow Rate FiO2 05/21/19 11:58 97.5 79 20 107/56 (73) 95 2.0 I&O- Last 24 Hours up to 6 AM 05/21/19 06:00 Intake Total 780 ml Output Total 500 ml Balance 280 ml Laboratory Data 24H LABS Laboratory Tests 2 05/21/19 05:17: Immature Granulocyte % (Auto) 4.1H, White Blood Count 7.9, Red Blood Count 2.71L, Hemoglobin 8.3L, Hematocrit 25.7L, Mean Corpuscular Volume 94.8, Mean Corpuscular Hemoglobin 30.6, Mean Corpuscular Hemoglobin Concent 32.3, Red Cell Distribution Width 16.0H, Platelet Count 147L, Neutrophils (%) (Auto) 68.5H, Lymphocytes (%) (Auto) 10.4L, Monocytes (%) (Auto) 13.9H, Eosinophils (%) (Auto) 1.7, Basophils (%) (Auto) 1.4H, Neutrophils # (Auto) 5.4, Lymphocytes # (Auto) 0.8L, Monocytes # (Auto) 1.1H, Eosinophils # (Auto) 0.1, Basophils # (Auto) 0.1, Nucleated Red Blood Cells % (auto) 0.0, Anion Gap 9, Glomerular Filtration Rate > 60.0, Blood Urea Nitrogen 20H, Creatinine 0.89, Sodium Level 138, Potassium Level 4.0, Chloride Level 101, Carbon Dioxide Level 28, Calcium Level 8.8 CBC/BMP Laboratory Tests 05/21/19 05:17 Red Blood Count 2.71 L, Mean Corpuscular Volume 94.8, Mean Corpuscular Hemoglobin 30.6, Mean Corpuscular Hemoglobin Concent 32.3, Red Cell Distribution Width 16.0 H, Neutrophils (%) (Auto) 68.5 H, Lymphocytes (%) (Auto) 10.4 L, Monocytes (%) (Auto) 13.9 H, Eosinophils (%) (Auto) 1.7, Basophils (%) (Auto) 1.4 H, Neutrophils # (Auto) 5.4, Lymphocytes # (Auto) 0.8 L, Monocytes # (Auto) 1.1 H, Eosinophils # (Auto) 0.1, Basophils # (Auto) 0.1, Calcium Level 8.8 Microbiology Microbiology 05/20/19 Blood Culture - Preliminary, Resulted No growth after 24 hours . All specim... 05/20/19 Blood Culture - Preliminary, Resulted No growth after 24 hours . All specim... 05/19/19 Blood Culture - Preliminary, Resulted No growth after 24 hours . All specim... 05/19/19 Blood Culture - Preliminary, Resulted No growth after 24 hours . All specim... RENETTA SOUZA MD May 21, 2019 13:11
[2019-05-21] MEDS: NS 1,000 ML IV SCH (14:00)
[2019-05-21 15:51] VITALS: BP 112/57
[2019-05-21 20:00] VITALS: BP 130/65
[2019-05-21] MEDS ORDERED: SODIUM CHLORIDE 0.9% INJ 10 ML SYR IV PRN (20:15)
[2019-05-21] MEDS: ALPRAZolam 0.25 MG TAB PO SCH (21:16)
[2019-05-21] MEDS: LOSARTAN 50 MG TAB PO SCH (21:16)
--- NOTE | 2019-05-21 23:08 | HPE ---
DATE OF ADMISSION: 05/19/2019 Primary care physician/Linux Server Administrator: Dr. Sary Mae The patient is transferred from [facility] for transesophageal echocardiogram regarding Enterococcus faecalis bacteremia, rule out endocarditis. HISTORY OF PRESENT ILLNESS: This is an 83-year-old male who was hospitalized at [facility] on October 2018 for infected left prosthesis with Enterococcus Faecalis, developed bacteremia without endocarditis and treated with intravenous antibiotics for six weeks. He also completed oral Levaquin after following up with Dr. Perkins as an outpatient and did well until Friday night when he developed the shakes at home, temperature taken by the was 99, he had taken some Tylenol at that time. He also complained of right shoulder pain, was concerned that this was the same scenario as in October when he developed infected prosthesis, as well as bacteremia. He was seen by Dr. Zhao on Friday who looked at his left knee which did not appear to have significant effusion and arthrocentesis was not performed at that time. The patient then presented to [facility] with complaints of persistent shaking. He was admitted with a temperature of 101, fever of unknown origin. White count was 35,000, sed rate was 33, lactic acid was 1.1. The patient was initially treated with ciprofloxacin, clindamycin and Rocephin for presumed urinary tract infection (UTI) due to recent cystoscopy on 04/26/2019. He had intermittent fevers of 102-103 and was put on intravenous (IV) vancomycin on 05/14 and ampicillin on 05/15. Blood cultures grew out Enterococcus Faecalis and the patient was subsequently transferred to [facility] for transesophageal echocardiogram. The patient's left knee and right shoulder pain are worse with ambulation, unable to extend and rotate his shoulder despite taking Tylenol at home. No other exacerbating or ameliorating factors. He otherwise has had no recurrent rigors while admitted at [facility]. PAST MEDICAL HISTORY: 1. 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 2. 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 3. Tricuspid valve ring repair. 4. Dual chamber pacemaker. 5. Hypertension. 6. Bladder cancer. Cystoscopy was 04/26/2019 negative for recurrent malignancy. 7. Left knee replacement. 8. Bladder cancer resection. 9. The patient had a prosthetic knee infection treated with IV antibiotics by a peripherally inserted center catheter (PICC) line for six weeks and orally with Levaquin subsequently. 10. History of myelodysplastic syndrome. 11. Bladder cancer status post resection. 12. Acute blood loss anemia secondary to washout. 13. Hiatal hernia. 14. Vitamin D deficiency. 15. Osteoarthritis. 16. Iron deficiency anemia. 17. Reflux. PAST SURGICAL HISTORY: 1. Transurethral resection of the bladder times two. 2. Chest tube placement 2016. 3. Washout of the left knee 2018. SOCIAL HISTORY: Prior smoker, quit 10 years ago, no alcohol or illicit drug use. ALLERGIES: HEPARIN. FAMILY HISTORY: Father and mother , two daughters are healthy, brother with bladder cancer. REVIEW OF SYSTEMS: Per history of present illness (HPI), 12-point system otherwise negative. PHYSICAL EXAMINATION: VITAL SIGNS: Temperature 99, pulse 79, respiratory rate 18, blood pressure 141/60, 97% on room air. GENERAL: The patient is awake, alert and oriented times three, answering questions appropriately. HEENT: Anicteric, no jaundice, no jugular venous distention or thyromegaly. Appears his stated age. Nares are intact. Oropharynx is clear. No buccal lesions. Tongue without lesions. Facial area has some abrasions. NECK: Supple, full range of motion. Trachea is midline, no thyromegaly, no masses. CHEST: Normal AP diameter, no truncal lesions. No rales, rhonchi, no wheezing. Clear to auscultation. Air entry is equal bilaterally. HEART: S1, S2, no murmurs, rubs, gallops. There is a faint 2/6 systolic murmur at the apical region. ABDOMEN: Soft, nontender, nondistended. Positive bowel sounds, no hepatosplenomegaly. EXTREMITIES: The patient has well healed left knee scarring. There is warmth, no redness. No palpable swelling. There is no cyanosis, clubbing or pitting edema bilateral lower extremities. LABORATORY DATA: White count 7.7, hemoglobin 8.8, hematocrit 25, platelet count 140. Sodium 137, potassium 4.1, chloride 104, bicarbonate 27, BUN 14, creatinine 0.75, glucose 115, calcium 8.7, magnesium 2.1, AST 41, ALT 47, alkaline phosphatase 69. C-reactive protein 12.9, total protein 6.6, albumin of 2.5. Albumin globulin ratio is 0.61, procalcitonin is pending. Microbiology 05/19, two sets of blood cultures are pending. Previous lung culture 10/28/2018 Enterococcus faecalis. Blood cultures 10/27/2018 Enterococcus Faecalis. 05/19/2019 chest x-ray: Cardiomegaly with pacemaker, no acute infiltrate. CT of the abdomen and pelvis 05/19/2019: No acute abnormality identified. Colonic diverticulosis and cholelithiasis. Knee CT: Small to moderate knee joint effusion, prepatellar and suprapatellar subcutaneous edema. EKG: Paced rhythm 85 beats per minute. ASSESSMENT AND PLAN: This is an 83-year-old male with infected left knee prosthesis status post washout in October, treated with six weeks of intravenous antibiotics, seen by Dr. Perkins as an outpatient and was further treated with oral Levaquin. The patient presented to [facility] on 05/17 with rigors, found to have fever of unknown origin. Blood cultures grew out Enterococcus Faecalis and the patient was transferred to [facility] for transesophageal echocardiogram, rule out Endocarditis. IMPRESSION: 1. Enterococcus faecalis endocarditis. Most likely secondary to chronic infected knee prosthesis on the left. CT scan of the knee shows small to moderate left knee effusion. Will consult with orthopedic surgery in the morning, infectious disease specialist, Dr. Denia Perkins. Previous culture shows sensitivity to ampicillin which will be continued with renal dosing managed by pharmacy. The patient will be admitted to telemetry unit. 2. Nonsustained ventricular tachycardia, 15 beats on telemetry. The patient's cardiac markers will be cycled. He was asymptomatic with no changes in blood pressure. Potassium and magnesium were at 4.1 and 2.1 respectively. 3. History of myelodysplastic syndrome, currently with anemia and thrombocytopenia without acute indication for red blood cell transfusion. 4. History of bladder cancer. Recent cystoscopy was 04/26/2019. CT of the abdomen and pelvis shows no pyelonephritis. Urinalysis has been checked, blood cultures have been ordered. Will continue intravenous nafcillin. 5. Pacemaker placement. Outpatient cardiology followup. 6. Porcine mitral valve and tricuspid being repaired [facility] two years ago. Currently with endocarditis on intravenous antibiotics. Will need a historic preservationist consultation. Will discuss with the patient's family. 7. History of bladder cancer, status post resection. Follows with Dr. Noyola. 8. Refractory myelodysplastic syndrome. Previously seeing Dr. Rivera at the cancer center. Outpatient followup, transfuse as needed. 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 He does not need irradiated blood. Currently still hemodynamically stable.
[2019-05-22] VITALS: BP 99/52
[2019-05-22] MEDS: AMPICILLIN SOD 2 GM in D5W MINI-BAG PLUS 100 ML IV SCH ×3 (03:21→11:17)
[2019-05-22 04:00] VITALS: BP 113/57
[2019-05-22] MEDS: cefTRIAXone SOD 2 GM in D5W MINI-BAG PLUS 50 ML IV SCH (05:13)
[2019-05-22 05:33] LABS: BASO # 0.1 10^3/uL (0.0-0.2); BASO % 1.5 % (0.0-1.0); EOS # 0.1 10^3/uL (0.0-0.50); EOS % 1.8 % (0.0-3.0); HEMATOCRIT 23.9 % (42.0-52.0); HEMOGLOBIN 7.8 g/dl (13.5-17.5); LYMPH # 1.2 10^3/uL (1.5-4.5); LYMPH % 20.4 % (24.0-44.0); MEAN CORPUSCULAR HEMOGLOBIN 31.6 pg (27.0-33.0); MEAN CORPUSCULAR HGB CONC 32.6 g/dl (32.0-36.5); MEAN CORPUSCULAR VOLUME 96.8 fl (80.0-96.0); MONO # 0.9 10^3/uL (0.0-0.8); MONO % 14.7 % (0.0-5.0); NEUTROPHILS # 3.6 10^3/uL (1.8-7.7); NEUTROPHILS % 58.6 % (36.0-66.0); PLATELET COUNT, AUTOMATED 141 10^3/uL (150-450); RED BLOOD COUNT 2.47 10^6/uL (4.30-6.10); WHITE BLOOD COUNT 6.1 10^3/uL (4.0-10.0)
[2019-05-22 05:53] LABS: BLOOD UREA NITROGEN 17 MG/DL (7-18); CALCIUM LEVEL 8.6 MG/DL (8.8-10.2); CARBON DIOXIDE LEVEL 29 MEQ/L (21-32); CHLORIDE LEVEL 105 MEQ/L (98-107); CREATININE FOR GFR 0.77 MG/DL (0.70-1.30); GLOMERULAR FILTRATION RATE > 60.0 (>35); GLUCOSE, FASTING 98 MG/DL (70-100); POTASSIUM SERUM 4.1 MEQ/L (3.5-5.1); SODIUM LEVEL 140 MEQ/L (136-145)
[2019-05-22] MEDS ORDERED: SODIUM CHLORIDE 0.9% INJ 10 ML SYR IV SCH (06:00)
[2019-05-22 07:32] VITALS: BP 146/77
--- NOTE | 2019-05-22 08:28 | IPN ---
DATE: 05/22/2019 Atul is seen in the PCU. He has a complicated history of recurrent enterococcus faecalis bacteremia, now with bioprosthetic aortic valve endocarditis and possible implantable cardioverter defibrillator (ICD) lead infection as well. He is developing increasing lower thoracic/upper lumbar back pain on the left side which makes me worry about discitis. He has an ICD, so we cannot do an MRI. Per notes, family members are deciding whether they want transfer to [facility] or [facility]. Per nursing staff, that decision has not been firmly made yet, though the patient indicates he would rather go to [place]. PHYSICAL EXAMINATION: Afebrile. 146/66. Pulse 79. GENERAL APPEARANCE: Chronically ill appearing. Resting comfortably. HEENT: Unremarkable. LUNGS: Decreased breath sounds. Fibrotic rales to the bases. HEART: Regulars rhythm. 1/6 systolic ejection murmur. ABDOMEN: Soft, nontender. Lower back is tender to palpate, lower thoracic/upper lumbar. LABS: Electrolytes unremarkable. Creatinine is 0.79. White count 6.1. Hemoglobin is slowly drifting down at 7.8. Platelets 141. 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 PLAN: 1. The patient is on ampicillin 2 grams every 4 hours, ceftriaxone 2 grams every 12 hours. The family is deciding tertiary care center of choice for transfer. Once they make the decision, we will make appropriate phone calls. 2. Left low back pain. Concern for discitis. Will get a CT of the thoracic and lumbosacral spine. 3. Myelodysplastic syndrome. Followed by oncology at the [facility]. His hemoglobin is drifting down. No active bleeding. Probably will need a transfusion if it gets closer to 7. 4. Hypertensive heart disease. Blood pressure is well controlled. 5. History of atrial fibrillation. Status post pacemaker. No currently anticoagulated.
[2019-05-22] MEDS: FERROUS SULFATE 325MG TAB PO SCH (08:53)
[2019-05-22] MEDS: POTASSIUM CHLORIDE 10 MEQ SR TABLET PO SCH ×2 (08:53→13:07)
--- NOTE | 2019-05-22 08:53 | REP ---
Clinical: Diskitis. Technique: Axial noncontrast images through the thoracic spine with coronal and sagittal re-formations. Findings: Thoracic vertebral bodies and disc spaces are essentially normal for age. Mild osteopenia and very minimal multilevel degenerative changes noted. No acute fracture / compression injury or subluxation. No obvious findings to suggest diskitis. Spinal canal is patent. Neural foramen are patent. Posterior elements and spinous processes are intact. Paravertebral soft tissues are normal. Impression: Generalized age-related degenerative changes. No acute process appreciated. Electronically Signed by Yao Jo MD 05/22/2019 08:45 A
[2019-05-22 08:54] VITALS: BP 146/77
[2019-05-22] MEDS: METOPROLOL TART 25 MG TABLET PO SCH (08:54)
[2019-05-22] MEDS: MAGNESIUM OXIDE 400 MG TAB (MAG-OX) PO SCH (08:54)
[2019-05-22] MEDS: MORPHINE 15 MG SA TAB PO SCH (08:55)
[2019-05-22] MEDS: NAPROXEN 250 MG TAB PO SCH (08:55)
[2019-05-22] MEDS: MULTIVITAMINS/MINERALS THERAP 1 TAB PO SCH (08:55)
[2019-05-22] MEDS: OYSTER SHELL CALCIUM 500 MG TAB PO SCH (08:55)
[2019-05-22] MEDS: OMEPRAZOLE 20 MG CAP PO SCH (08:55)
[2019-05-22] MEDS: VITAMIN D 1,000 INTERNATIONAL UNITS TABLET PO SCH (08:55)
[2019-05-22] MEDS: FUROSEMIDE 40 MG/4 ML VIAL (J1940) IV SCH (08:56)
--- NOTE | 2019-05-22 08:59 | REP ---
Clinical: Pain. Possible diskitis. Technique: Axial noncontrast images from mid T11 through mid sacrum with coronal and sagittal re-formations. Findings: Generalized age-related osteopenia is appreciated. Lumbar vertebral bodies are intact and there is no evidence for acute fracture / compression injury or acute subluxation. Moderate multilevel degenerative disc osteophyte complexes are appreciated including hypertrophic facet changes and mild posterior disc bulge with neural foraminal narrowing at the L3-4 level. Subtle areas of high canal stenosis due to associated hypertrophic facet changes suggested. No evidence for diskitis. Impression: Moderate generalized multilevel degenerative spondylosis. No evidence for diskitis by CT evaluation. Electronically Signed by Yao Jo MD 05/22/2019 08:51 A
[2019-05-22 11:34] VITALS: BP 119/57
[2019-05-22 13:47] VITALS: BP 110/55
[2019-05-22] MEDS: NS 1,000 ML IV SCH (14:00)
--- NOTE | 2019-05-23 11:31 | DSES ---
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 SECONDARY DIAGNOSES: 1. Anemia of chronic disease. 2. Low back pain. No discitis on CT of lumbar and thoracic spine today. 3. Myelodysplastic syndrome, followed by oncology in [place]. 4. Hypertensive heart disease. 5. History of atrial fibrillation, not currently anticoagulated. HISTORY: Atul Ng was admitted from [facility] when he was found to have enterococcal faecalis bacteremia on repeated blood cultures. He was transferred for transesophageal echocardiogram. Details in history and physical from admission. HOSPITAL COURSE: Transesophageal echocardiogram showed vegetation on the bioprosthetic mitral valve leaflet. He was seen by infectious disease. Was started on ampicillin and Rocephin. The recommendation from infectious disease was transfer to tertiary care center. The family is trying to decide between [facility] where the valve surgery was done versus [facility]. Today, they decided on [facility]. I called and spoke to Dr. Ya, who accepted the patient in transfer. On the day of transfer, the patient is resting comfortably in no distress. His vital signs are stable. He is afebrile. His lungs are clear. Heart has a regular rate and rhythm with a 1/6 systolic ejection murmur. Abdomen: Soft, nontender, no masses. No peripheral edema. His laboratories: White count 6.1, hemoglobin 7.8 (8.3 yesterday), platelets 141. Sodium 140, potassium 4.1, BUN 17, creatinine 0.7, glucose 98. DISPOSITION: The patient is being transferred to [facility]. Floor is B5. Accepting physician is Dr. Ya. The patient's current medications are ampicillin 2 grams intravenous (IV) every 6 hours, furosemide 40 mg IV daily, Os-Sandeep, vitamin D 2000 units daily, multivitamin, Prilosec 40 mg daily, naproxen 500 mg twice a day as needed, MS Contin 15 mg twice a day for the back pain, magnesium oxide 400 mg daily, Lopressor 25 mg twice a day, ferrous sulfate 325 mg daily (I am not sure he needs this. He has anemia of chronic disease, not iron-deficiency.), Micro-K 20 mEq three times a day with meals, Rocephin 2 grams every 12 hours, Xanax 0.25 mg nightly as needed, Cozaar 100 mg daily, tramadol 50 mg every 6 hours as needed. His activity is as tolerated. He is on a [id number] diet.
--- NOTE | 2019-05-25 13:50 | REP ---
Procedure: PICC line insertion with Uziel The procedure was performed under the direct supervision of Dr. Mann. The risks and benefits of the procedure were explained to the patient and informed consent was obtained. The right basilic vein was localized using ultrasound guidance. The skin was prepped and draped in a sterile fashion. 2% lidocaine was used as a local anesthetic. Using ultrasound guidance the basilic vein was cannulated and a 0.018 guidewire was inserted and advanced to the SVC using fluoroscopic guidance. The needle was removed and a 5.5 Zambian dilator and peel-away sheath was inserted over the guide wire. A 5.5 [place]ian dual lumen catheter was cut to length of 41 cm. The dilator was removed and the catheter was inserted over the guide wire with the tip ending in the SVC. The peel-away sheath was removed and the catheter was flushed with heparinized saline as per Hospital protocol. The catheter was affixed to the skin and a sterile dressing was applied. The patient tolerated the procedure well and there were no immediate complications. 0.2 minutes of fluoro time was utilized for this procedure. Reviewed by KATHARINA Mendez 05/25/2019 01:08 P Electronically Signed by Immanuel Mann MD 05/25/2019 01:42 P
== END 2019-05-22 14:32 | disposition short-term general hospital (02) | DRG 289 ==
LOC: EDSTATUS 12:38 → M MSPAV 14:35 → M PCU 19:19
PROVIDERS: ADMIT General Practice; ATTEND Family Medicine
PROC: B246ZZ4 Ultrasonography of Right and Left Heart, Transesophageal (ICD-10-PCS; principal; 2019-05-19 17:05)
PROC: 02HV33Z Insertion of Infusion Device into Superior Vena Cava, Percutaneous Approach (ICD-10-PCS; 2019-05-21)
DX: I33.0 Acute and subacute infective endocarditis (principal); I47.2 Ventricular tachycardia; T82.7XXA Infection and inflammatory reaction due to other cardiac and vascular devices, implants and grafts, initial encounter; D46.9 Myelodysplastic syndrome, unspecified; I10 Essential (primary) hypertension; E55.9 Vitamin D deficiency, unspecified; M19.90 Unspecified osteoarthritis, unspecified site; D63.8 Anemia in other chronic diseases classified elsewhere; M79.2 Neuralgia and neuritis, unspecified; M54.5 Low back pain; Y83.1 Surgical operation with implant of artificial internal device as the cause of abnormal reaction of the patient, or of later complication, without mention of misadventure at the time of the procedure; D50.9 Iron deficiency anemia, unspecified; K21.9 Gastro-esophageal reflux disease without esophagitis; Z87.891 Personal history of nicotine dependence; Z95.3 Presence of xenogenic heart valve; Z85.51 Personal history of malignant neoplasm of bladder; Z95.0 Presence of cardiac pacemaker; Z96.652 Presence of left artificial knee joint

== ENCOUNTER → 2019-08-09 | Outpatient (REF) | payer MEDICARE ==
[~2019-08-09] MED LIST changes: +ACET1TAB55 PO; +ALPR0.25 PO; +AMPI1INJ IJ; +AMPI2INJ IV; -DOXY100T16 PO; +DOXY100T27 PO; +FURO40VL IV; +MAGN400T2 PO; -OMEP40CA2 PO; +OMEP40CA97 PO; +OYST1TAB PO; +PANT40TA3 PO; +POTA10CA32 PO; +PROBCAP2 PO; +SENN-53 PO; -SENN1TAB40 PO
== END ==
LOC: M SMT 13:04
PROVIDERS: ATTEND Urology
DX: C67.9 Malignant neoplasm of bladder, unspecified (principal)

== ENCOUNTER → 2020-02-07 | Outpatient (REF) | payer MEDICARE ==
[~2020-02-07] MED LIST changes: +AMOX500T PO; +BACITAB PO; +CIPR7.5D5 AD; -CIPRODEX AD; +D31000TA2 PO; +DISU250T PO; +IRON65TA2 PO; +MAGN1TAB39 PO; +MULT1TAB50 PO; +ONDA8TAB10 PO; -ONDA8TAB7 PO; +PANT40TA29 PO; -PANT40TA3 PO; +PATIENT COMMENT; +QUET50TA3 PO; +SERT50TA29 PO; +VITMTA PO; +[UNRECOGNIZED DRUG - OTHER] PO
== END ==
LOC: M SMT 17:24
PROVIDERS: ATTEND Urology
DX: C67.9 Malignant neoplasm of bladder, unspecified (principal)

== ENCOUNTER → 2020-02-21 | Outpatient (CLI) | payer MEDICARE ==
[~2020-02-21] MED LIST changes: -BACITAB PO; -CIPR7.5D5 AD; +CIPRODEX AD; -D31000TA2 PO; -DISU250T PO; -MAGN1TAB39 PO; -PANT40TA29 PO; +PANT40TA3 PO; -PATIENT COMMENT; -QUET50TA3 PO; -SERT50TA29 PO; +VITAD1000T PO; -VITMTA PO
== END ==
LOC: M LABSMTC 10:01
PROVIDERS: ATTEND Anesthesiology
DX: Z01.818 Encounter for other preprocedural examination (principal); Z11.59 Encounter for screening for other viral diseases
CPT/HCPCS: C9803; U0003

== ENCOUNTER 2020-02-24 06:03 | Day surgery (SDC) | payer MEDICARE ==
[~2020-02-24] VITALS: Ht 170.2 cm; Wt 90.3 kg
[2020-02-24] MEDS ORDERED: ceFAZolin SOD 2 GM in IV 1 EA IV ONE (06:30)
[2020-02-24] MEDS ORDERED: LR 1,000 ML IV ONE (06:30)
[2020-02-24] MEDS ORDERED: METOCLOPRAMIDE INJ 10MG/2ML VIAL (J2765 PER 1) As Ordered ONE (07:11)
[2020-02-24] MEDS ORDERED: ROCURONIUM BROMIDE 50 MG/5 ML VIAL As Ordered ONE (07:11)
[2020-02-24] MEDS ORDERED: fentaNYL 100 MCG/2 ML INJECTION (J3010) As Ordered ONE (07:11)
[2020-02-24] MEDS ORDERED: ONDANSETRON 4MG/2ML VIAL As Ordered ONE (07:11)
[2020-02-24] MEDS ORDERED: LIDOCAINE 2% 100MG/5ML SDV (FOR ANES.) As Ordered ONE (07:11)
[2020-02-24] MEDS ORDERED: propofoL 200 MG/20 ML VIAL As Ordered ONE (07:11)
[2020-02-24] MEDS ORDERED: SUGAMMADEX SODIUM 500 MG/5 ML VIAL (BRIDION) As Ordered ONE (08:17)
[2020-02-24] MEDS ORDERED: PHENYLephrine HCL 500 MCG/5 ML (100MCG/ML) SYRINGE (J2370) As Ordered ONE (08:36)
[2020-02-24] MEDS ORDERED: LR 1,000 ML IV SCH (08:45)
[2020-02-24] MEDS ORDERED: ACETAMINOPHEN TAB 650MG DOSE (2X325MG) PO PRN (08:45)
[2020-02-24] MEDS ORDERED: ONDANSETRON 4MG/2ML VIAL IV PRN (08:45)
[2020-02-24] MEDS ORDERED: fentaNYL 100 MCG/2 ML INJECTION (J3010) IV PRN (08:45)
[2020-02-24] MEDS ORDERED: PERCOCET 5MG/325MG TAB PO PRN (08:45)
[2020-02-24 09:52] VITALS: BP 156/84
--- NOTE | 2020-02-29 12:53 | RO ---
DATE OF PROCEDURE: 02/24/2020 PREPROCEDURE DIAGNOSIS: Bladder cancer. POSTPROCEDURE DIAGNOSIS: Bladder cancer. PROCEDURE: Cystoscopy, transurethral resection of bladder tumor (less than 2 cm). SURGEON: Dr. Jose Carlos Noyola FUSING LINE INSPECTOR: None. ANESTHESIA: General. OPERATIVE INDICATIONS: This is an 84-year-old male with a history of bladder cancer who on recent office cystoscopy was found to have a small recurrence under the dome of the bladder. He was brought to the operating room today for the above listed procedures. DESCRIPTION OF PROCEDURE: The patient was brought to the operating room and general anesthesia was induced. Prophylactic antibiotics were infused. He was then placed in dorsal lithotomy position and prepped and draped in the usual sterile fashion. The rigid cystoscope was inserted into the urethral meatus and advanced into the bladder. It was thoroughly examined. The only abnormality seen was a very small patch of what appeared to be tumors on the bladder dome just to the left as well as a small patch right at the bladder neck at approximately 5 o'clock. Both of these areas were resected using cold cup biopsy forceps and then the base of the resection was cauterized using the coagulation current. Specimens were sent off for pathologic analysis. Once satisfied with hemostasis, the bladder was emptied of all fluids and this marked the conclusion of the procedure. The patient was then taken out of dorsal lithotomy positioned, awakened from anesthesia and transported to the recovery room in stable condition. Estimated blood loss: 5 mL. Complications: None. Specimen: Bladder tumors. Plan: The patient will followup in the clinic next week to discuss his pathology results. JUAN MANUEL
== END 2020-02-24 09:56 | disposition home or self-care (01) ==
LOC: M SDC 06:03
PROVIDERS: ATTEND Urology
DX: C67.9 Malignant neoplasm of bladder, unspecified (principal); I10 Essential (primary) hypertension; G47.30 Sleep apnea, unspecified; I48.91 Unspecified atrial fibrillation; Z95.0 Presence of cardiac pacemaker; F17.218 Nicotine dependence, cigarettes, with other nicotine-induced disorders; D69.6 Thrombocytopenia, unspecified; Z79.899 Other long term (current) drug therapy
CPT/HCPCS: 52234; 88307; J0690; J2370; J2405; J2765; J3010

== ENCOUNTER → 2020-03-01 | Outpatient (REF) | payer MEDICARE | LOC: M SMT 13:44 | PROVIDERS: ATTEND Urology | DX: N39.0 Urinary tract infection, site not specified (principal) | CPT/HCPCS: 87086; G0463 ==

== ENCOUNTER 2020-06-03 22:50 | Inpatient (IN) | payer MEDICARE ==
[~2020-06-03] VITALS: Ht 170.2 cm; Wt 89.1 kg
[~2020-06-03 22:50] MED LIST changes: +D31000TA2 PO; +PANT40TA29 PO; -PANT40TA3 PO; -VITAD1000T PO
--- NOTE | 2020-06-03 23:34 | REPVR ---
PROCEDURE INFORMATION: Exam: CT Head Without Contrast Exam date and time: 06/03/2020 11:03 PM Age: 84 years old Clinical indication: Altered mental status/memory loss; Additional info: Altered loc TECHNIQUE: Imaging protocol: Computed tomography of the head without contrast. Radiation optimization: All CT scans at this facility use at least one of these dose optimization techniques: automated exposure control; mA and/or kV adjustment per patient size (includes targeted exams where dose is matched to clinical indication); or iterative reconstruction. COMPARISON: CT Head without contrast 2016-08-17 10:53 FINDINGS: Brain: Diffuse moderate cerebral age related volume loss. Moderate patchy low attenuation in the white matter compatible with moderate chronic small vessel ischemic disease. No midline shift, mass, fluid collection, or evidence of hemorrhage. Ventricles: Ventricular enlargement proportional to volume loss. Bones/joints: Unremarkable. No acute fracture. Sinuses: Visualized sinuses are unremarkable. No fluid levels. Mastoid air cells: Visualized mastoid air cells are well aerated. Soft tissues: Unremarkable. IMPRESSION: Moderate involutional changes, no acute intracranial abnormality. Electronically signed by: Yared Chirinos On 06/03/2020 23:33:37 PM
[2020-06-03] MEDS ORDERED: HALOPERIDOL 5MG/ML VIAL (J1630 PER 1) IM ONE (23:45)
[2020-06-03] MEDS ORDERED: LORazepam 2 MG/ML VIAL IM ONE (23:45)
[2020-06-03] MEDS ORDERED: diphenhydrAMINE 50MG/ML VIAL (J1200) IM ONE (23:45)
[2020-06-04 00:01] LABS: HEMOGLOBIN 12.2 g/dl (13.5-17.5); MEAN CORPUSCULAR HEMOGLOBIN 32.5 pg (27.0-33.0); MEAN CORPUSCULAR HGB CONC 33.9 g/dl (32.0-36.5); RED BLOOD COUNT 3.75 10^6/uL (4.30-6.10); WHITE BLOOD COUNT 10.4 10^3/uL (4.0-10.0)
[2020-06-04 00:06] LABS: PLATELET COUNT, AUTOMATED 62 10^3/uL (150-450)
[2020-06-04 00:14] LABS: ACETAMINOPHEN LEVEL < 2.0 UG/ML (10.0-30.0); ALBUMIN 3.6 GM/DL (3.2-5.2); ALT/SGPT 29 U/L (12-78); BILIRUBIN,DIRECT 0.3 MG/DL (0.0-0.2); BILIRUBIN,TOTAL 0.8 MG/DL (0.2-1.0); BLOOD UREA NITROGEN 15 MG/DL (7-18); CALCIUM LEVEL 8.8 MG/DL (8.8-10.2); CARBON DIOXIDE LEVEL 20 MEQ/L (21-32); CHLORIDE LEVEL 113 MEQ/L (98-107); CREATININE FOR GFR 0.65 MG/DL (0.70-1.30); ETHYL ALCOHOL (ETHANOL) 0.191 % (0.000-0.010); GLOMERULAR FILTRATION RATE > 60.0 (>35); GLUCOSE, FASTING 98 MG/DL (70-100); POTASSIUM SERUM 3.5 MEQ/L (3.5-5.1); SALICYLATE LEVEL < 1.7 MG/DL (5.0-30.0); SODIUM LEVEL 143 MEQ/L (136-145); TOTAL PROTEIN 6.3 GM/DL (6.4-8.2)
[2020-06-04 00:30] LABS: AMPHETAMINES LEVEL URINE NEGATIVE (NEGATIVE); BARBITURATES URINE NEGATIVE (NEGATIVE); BENZODIAZEPINES URINE NEGATIVE (NEGATIVE); CANNABINOIDS URINE NEGATIVE (NEGATIVE); COCAINE METABOLITE URINE NEGATIVE (NEGATIVE); METHADONE URINE NEGATIVE (NEGATIVE); OPIATES URINE NEGATIVE (NEGATIVE); PHENCYCLIDINE URINE NEGATIVE (NEGATIVE)
--- NOTE | 2020-06-04 00:56 | REPVR ---
PROCEDURE INFORMATION: Exam: XR Chest, 1 View Exam date and time: 06/04/2020 12:44 AM Age: 84 years old Clinical indication: Other: Altered mental status TECHNIQUE: Imaging protocol: XR of the chest Views: 1 view. COMPARISON: CR Chest, 2 view JASON, Lat 2018-10-27 13:59 FINDINGS: Tubes, catheters and devices: AICD/Pacemaker device is present, and its leads are in appropriate position. Lungs: Left basilar atelectasis or infiltrate. Pleural space: Unremarkable. No pleural effusion. No pneumothorax. Heart/Mediastinum: Cardiomegaly. Bones/joints: Sternotomy. Chronic left lateral rib fractures. IMPRESSION: Left basilar atelectasis or infiltrate. Electronically signed by: Yared Chirinos On 06/04/2020 00:56:26 AM
[2020-06-04] MEDS ORDERED: diphenhydrAMINE 50MG/ML VIAL (J1200) As Ordered ONE (02:37)
[2020-06-04] MEDS ORDERED: HALOPERIDOL 5MG/ML VIAL (J1630 PER 1) As Ordered ONE (02:37)
[2020-06-04] MEDS ORDERED: AMOXICILLIN 500 MG CAP PO ONE (02:45)
[2020-06-04] MEDS ORDERED: AMOX500T PO (02:47)
[2020-06-04] MEDS ORDERED: HALOPERIDOL 5MG/ML VIAL (J1630 PER 1) IM STA (02:49)
[2020-06-04] MEDS ORDERED: diphenhydrAMINE 50MG/ML VIAL (J1200) IM STA (02:49)
[2020-06-04] MEDS: AMOXICILLIN 500 MG CAP PO SCH ×2 (09:00→21:22)
[2020-06-04] MEDS ORDERED: PRED5TA PO (12:17)
[2020-06-04] MEDS: OMEPRAZOLE 20 MG CAP PO SCH (13:13)
[2020-06-04] MEDS: predniSONE 5 MG TAB PO SCH (13:13)
[2020-06-04] MEDS: MAGNESIUM OXIDE 400 MG TAB (MAG-OX) PO SCH (13:13)
[2020-06-04] MEDS: METOPROLOL TART 25 MG TABLET PO SCH ×2 (13:14→21:23)
[2020-06-04] MEDS ORDERED: LOSARTAN 50MG TABLET PO SCH (21:00)
[2020-06-04] MEDS ORDERED: AMOXICILLIN 500 MG CAP PO SCH (21:00)
[2020-06-04] MEDS ORDERED: NAPROXEN 250 MG TAB PO ONE (21:15)
[2020-06-05] MEDS: SERTRALINE HCL 50 MG TAB PO SCH (09:00)
[2020-06-05] MEDS: MAGNESIUM OXIDE 400 MG TAB (MAG-OX) PO SCH (10:06)
[2020-06-05] MEDS: predniSONE 5 MG TAB PO SCH (10:07)
[2020-06-05] MEDS: AMOXICILLIN 500 MG CAP PO SCH ×2 (10:07→23:21)
[2020-06-05] MEDS: METOPROLOL TART 25 MG TABLET PO SCH ×2 (10:07→21:06)
[2020-06-05] MEDS: OMEPRAZOLE 20 MG CAP PO SCH (10:07)
[2020-06-05] MEDS ORDERED: NAPROXEN 250 MG TAB PO ONE (10:15)
[2020-06-05] MEDS ORDERED: MOM 30ML SUSPENSION UDC PO PRN (16:00)
[2020-06-05] MEDS ORDERED: traZODone 50 MG TAB PO PRN (16:00)
[2020-06-05] MEDS ORDERED: IBUPROFEN 400 MG TAB PO PRN (16:00)
[2020-06-05] MEDS ORDERED: MAALOX 30 ML SUSP *UDC PO PRN (16:00)
[2020-06-05 18:15] VITALS: BP 176/88
[2020-06-05] MEDS: LOSARTAN 50MG TABLET PO SCH (21:06)
[2020-06-06 06:31] VITALS: BP 148/88
[2020-06-06] MEDS ORDERED: FLUBLOK(EGG FREE)(QUAD)INFLUENZA VACC 0.5ML SYRINGE 18YRS & OLDER IM ONE (09:00)
[2020-06-06] MEDS: POTASSIUM CHLORIDE 10 MEQ SR TABLET PO SCH (10:11)
[2020-06-06] MEDS: OYSTER SHELL CALCIUM 500 MG TAB PO SCH (10:11)
[2020-06-06] MEDS: VITAMIN D 1,000 INTERNATIONAL UNITS TABLET PO SCH (10:11)
[2020-06-06] MEDS: AMOXICILLIN 500 MG CAP PO SCH ×2 (10:11→20:22)
[2020-06-06] MEDS: FERROUS SULFATE 325MG TAB PO SCH (10:11)
[2020-06-06] MEDS: OMEPRAZOLE 20 MG CAP PO SCH (10:11)
[2020-06-06] MEDS: MAGNESIUM OXIDE 400 MG TAB (MAG-OX) PO SCH (10:12)
[2020-06-06] MEDS: SERTRALINE HCL 50 MG TAB PO SCH (10:12)
[2020-06-06] MEDS: predniSONE 5 MG TAB PO SCH (10:12)
[2020-06-06] MEDS: MULTIVITAMINS/MINERALS THERAP 1 TAB PO SCH (10:12)
[2020-06-06] MEDS: METOPROLOL TART 25 MG TABLET PO SCH ×2 (10:13→20:22)
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
[2020-06-06] MEDS ORDERED: POLYVINYL ALCOHOL OPHTH SOLN 15 ML(LIQUITEARS) OU PRN (15:15)
--- NOTE | 2020-06-06 15:25 | IPNPDOC ---
Date Seen The patient was seen on 06/06/20. Progress Note Medical H&P dictated addendum: HTN,uncontrolled -will need to follow until blood pressure is normal. -start on isosorbide bid and titrate for goal 120-130mmHg. VS, I&O, 24H, Fishbone Vital Signs/I&O Vital Signs Date Time Temp Pulse Resp B/P (MAP) Pulse Ox O2 Delivery O2 Flow Rate FiO2 06/06/20 10:13 68 148/70 06/06/20 06:31 96.8 18 06/05/20 18:15 96 06/05/20 17:16 Room Air HAYDEN BRIONES MD Jun 06, 2020 15:25
[2020-06-06] MEDS: ISOSORBIDE DIN (ISORDIL) 10 MG TAB PO SCH (16:06)
[2020-06-06 16:19] VITALS: BP 128/88
[2020-06-06] MEDS: LOSARTAN 50MG TABLET PO SCH (20:22)
[2020-06-07 06:15] VITALS: BP 150/70
--- NOTE | 2020-06-07 07:29 | HPE ---
DATE OF ADMISSION: 06/05/2020 CHIEF COMPLAINT: Depression. 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 Hospitalist was asked to monitor for any acute medical issues. Patient complains of right-sided shoulder pain that he says has been going on for about a month, worsened in the past 2 days. 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 Patient has not had any traumatic injury. He has not had any fever or chills and says that he is to take amoxicillin 2 grams for the rest of his life. Patient is due to see his cracker off for his history of glaucoma for injections as well as infectious disease in 1 week to monitor his endocarditis. At this time patient has no other new complaints. No fever, chills, shortness of breath, chest pain, pressure, or tightness, dysuria, urgency, frequency, nausea, vomiting, diarrhea, abdominal pain. Patient says that his blood pressure increases when he fights with his . He is noted to have injection of the left lateral eye and was due to see Dr. Alvarado for glaucoma injections. MEDICAL HISTORY: 1. Enterococcus faecalis bacteremia. 2. Porcine mitral valve with vegetation. 3. Endocarditis. 4. 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 5. Tricuspid valve ring repair. 6. Dual-chamber pacemaker. 7. Hypertension. 8. Bladder CA. 9. Cystoscopy 2019, negative for recurrence. 10. Left knee replacement. 11. Bladder cancer resection. 12. Prosthetic knee infection, treated with intravenous (IV) antibiotics via peripherally inserted central catheter (PICC) line and orally with Levaquin. 13. Myelodysplastic syndrome 14. Bladder cancer. 15. Acute blood loss anemia secondary to washout. 16. Hiatal hernia. 17. Vitamin D deficiency. 18. Osteoarthritis. 19. Iron deficiency anemia. 20. Reflux. PAST SURGICAL HISTORY: 1. Chest tube placement in 2016. 2. Washout of the left knee. 3. Transurethral resection of the bladder times two. SOCIAL HISTORY: Prior smoker. Quit 10 years ago. No alcohol or illicit drug use. Lives with his . ALLERGIES: HEPARIN. FAMILY HISTORY: Father and mother are . Two daughters, healthy. One brother with bladder cancer. REVIEW OF SYSTEMS: Per history of present illness (HPI). A 12-point system otherwise negative. PHYSICAL EXAMINATION: Blood pressure 148/70, pulse 68, respiratory rate 18, 96% on room air, 96.8 temperature. GENERAL: Patient has injection of the left lateral eye. No changes in vision. Patient has no scleral icterus or jaundice. No jugular venous distention (JVD) or thyromegaly. Moist mucous membranes. Oropharynx is clear. Patient has limitation of the abduction of the right arm. Unable to raise greater than 90 degrees due to severe pain. There is no effusion of the left shoulder, but there is some point tenderness around the acromioclavicular (AC) joint and glenohumeral joint. LUNGS: Clear to auscultation. No wheezing, rales, or rhonchi. Air entry is equal. HEART: S1, S2, sinus rhythm. Faint 2/6 systolic murmur in the apical region. No radiation. ABDOMEN: Soft, nontender, nondistended. Positive bowel sounds. EXTREMITIES: Patient has a left knee scar, which is well healed. He has trace bilateral edema. Dry, scaly skin. No signs of any erythema, cellulitis, or venous ulcers. LABORATORY DATA: June 03: CBC: White count 10.4, hemoglobin 12, hematocrit 36, platelet count 62. Sodium 143, potassium 3.5, chloride 113, bicarbonate 20, BUN 15, creatinine 0.65, glucose 98, calcium 8.8. Total bilirubin 0.8, direct bilirubin 0.3, AST 34, ALT 29, alkaline phosphatase 53, albumin 3.6. TSH 1.5. ASSESSMENT AND PLAN: An 84-year-old male admitted to the inpatient mental health unit due to mood disorder and depression. 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 CURRENT ISSUES: 1. E. faecalis endocarditis with transesophageal echo showing vegetation on the bioprosthesis. 2. Depression/mood disorder. 3. Hypertension, uncontrolled. 4. Glaucoma, uncontrolled. 5. Porcine with mitral valve replacement. 6. History of dual-chamber pacemaker. 7. History of bladder cancer. 8. History of myelodysplastic syndrome. 9. Acute metabolic acidosis. 10. Thrombocytopenia secondary to myelodysplastic syndrome. 11. Iron deficiency anemia. 12. Vitamin D deficiency. 13. Hiatal hernia. 14. Osteoarthritis. 15. Reflux. PLAN: Patient is resumed on all his home medications. He will need to have an immediate followup with [facility] in order to proceed with intraocular injections for glaucoma. Monitor for visual changes and increasing eye pain. Refresh eyedrops for now. Obtain records from [facility] regarding glaucoma eyedrops and resume while in the inpatient mental health unit. Patient is continued on amoxicillin 1 gram twice a day. He is on Cozaar, metoprolol for his hypertension. Titrate medications for better blood pressure control. May need to add higher dose of losartan, change to Norvasc. MTDD
[2020-06-07 09:10] VITALS: BP 152/72
[2020-06-07] MEDS: METOPROLOL TART 25 MG TABLET PO SCH (09:10)
[2020-06-07] MEDS: POTASSIUM CHLORIDE 10 MEQ SR TABLET PO SCH (09:10)
[2020-06-07] MEDS: MULTIVITAMINS/MINERALS THERAP 1 TAB PO SCH (09:10)
[2020-06-07] MEDS: ISOSORBIDE DIN (ISORDIL) 10 MG TAB PO SCH (09:11)
[2020-06-07] MEDS: predniSONE 5 MG TAB PO SCH (09:11)
[2020-06-07] MEDS: FERROUS SULFATE 325MG TAB PO SCH (09:11)
[2020-06-07] MEDS: AMOXICILLIN 500 MG CAP PO SCH (09:11)
[2020-06-07] MEDS: SERTRALINE HCL 50 MG TAB PO SCH (09:11)
[2020-06-07] MEDS: VITAMIN D 1,000 INTERNATIONAL UNITS TABLET PO SCH (09:11)
[2020-06-07] MEDS: OMEPRAZOLE 20 MG CAP PO SCH (09:11)
[2020-06-07] MEDS: OYSTER SHELL CALCIUM 500 MG TAB PO SCH (09:12)
[2020-06-07] MEDS: MAGNESIUM OXIDE 400 MG TAB (MAG-OX) PO SCH (09:12)
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
[2020-06-07] MEDS ORDERED: DISU250T PO (09:53)
[2020-06-07] MEDS ORDERED: SERT50TA29 PO (09:53)
--- NOTE | 2020-06-09 11:21 | ECGEPIP ---
[facility] - ED Test Date: 2020-06-04 Pat Name: JOHN JOYCE Department: Room: - Gender: Male Plan Consultant: [email or web address] : 1935 Requested By: FRANCISCO Moseley Order Number: [id number] Reading MD: Duyen Alvarado Measurements Intervals Coats Rate: 65 P: 5 CT: 245 QRS: 182 QRSD: 171 T: 4 QT: 451 QTc: 472 Interpretive Statements ELECTRONIC VENTRICULAR PACEMAKER ABNORMAL RHYTHM ECG SEE SCANNED DOWNTIME REPORT
[2020-07-05] MEDS ORDERED: CALC600T60 PO (15:06)
[2020-07-05] MEDS ORDERED: MAGN1TAB39 PO (15:08)
== END 2020-06-07 12:50 | disposition home or self-care (01) | DRG 882 ==
LOC: M ED 22:50 → M ED INP 06-05 15:58 → M PSY 06-05 18:07
PROVIDERS: ADMIT Psychiatry & Neurology Psychiatry; ATTEND Psychiatry & Neurology Addiction Medicine
DX: F43.20 Adjustment disorder, unspecified (principal); Z95.3 Presence of xenogenic heart valve; Z95.0 Presence of cardiac pacemaker; Z85.51 Personal history of malignant neoplasm of bladder; Z96.652 Presence of left artificial knee joint; I10 Essential (primary) hypertension; H40.9 Unspecified glaucoma; F10.129 Alcohol abuse with intoxication, unspecified; D46.9 Myelodysplastic syndrome, unspecified; K44.9 Diaphragmatic hernia without obstruction or gangrene; F32.9 Major depressive disorder, single episode, unspecified; E55.9 Vitamin D deficiency, unspecified; D50.9 Iron deficiency anemia, unspecified; K21.9 Gastro-esophageal reflux disease without esophagitis; Z87.891 Personal history of nicotine dependence; Z88.8 Allergy status to other drugs, medicaments and biological substances

== ENCOUNTER → 2020-06-12 | Outpatient (REF) | payer MEDICARE ==
[~2020-06-12] MED LIST changes: +BACITAB PO; +DISU250T PO; +MAGN1TAB39 PO; +PATIENT COMMENT; +QUET5TAB PO; +SERT50TA29 PO; +VITMTA PO
== END ==
LOC: M SMT 16:58
PROVIDERS: ATTEND Urology
DX: C67.9 Malignant neoplasm of bladder, unspecified (principal)

== ENCOUNTER 2020-07-20 20:36 | Inpatient (IN) | payer MEDICARE ==
[~2020-07-20] VITALS: Ht 170.2 cm; Wt 86.8 kg
[~2020-07-20 20:36] MED LIST changes: -BACITAB PO; -PATIENT COMMENT; -QUET5TAB PO; -VITMTA PO
[2020-07-20 21:43] LABS: HEMATOCRIT 31.5 % (42.0-52.0); HEMOGLOBIN 10.2 g/dl (13.5-17.5); MEAN CORPUSCULAR HEMOGLOBIN 31.2 pg (27.0-33.0); MEAN CORPUSCULAR HGB CONC 32.4 g/dl (32.0-36.5); MEAN CORPUSCULAR VOLUME 96.3 fl (80.0-96.0); RED BLOOD COUNT 3.27 10^6/uL (4.30-6.10); WHITE BLOOD COUNT 8.7 10^3/uL (4.0-10.0)
[2020-07-20] MEDS ORDERED: VITMTA PO (21:58)
[2020-07-20] MEDS ORDERED: PRED5TA PO (21:58)
[2020-07-20] MEDS ORDERED: CALC600T60 PO (21:58)
[2020-07-20] MEDS ORDERED: BACITAB PO (21:58)
[2020-07-20] MEDS ORDERED: MAGN64TASA PO (21:58)
[2020-07-20] MEDS ORDERED: PATIENT COMMENT (22:02)
[2020-07-20 22:13] LABS: ACETAMINOPHEN LEVEL < 2.0 UG/ML (10.0-30.0); ALBUMIN 3.2 GM/DL (3.2-5.2); ALT/SGPT 17 U/L (12-78); BILIRUBIN,DIRECT 0.2 MG/DL (0.0-0.2); BILIRUBIN,TOTAL 0.6 MG/DL (0.2-1.0); BLOOD UREA NITROGEN 11 MG/DL (7-18); CALCIUM LEVEL 8.4 MG/DL (8.8-10.2); CARBON DIOXIDE LEVEL 23 MEQ/L (21-32); CHLORIDE LEVEL 111 MEQ/L (98-107); CREATININE FOR GFR 0.61 MG/DL (0.70-1.30); GLOMERULAR FILTRATION RATE > 60.0 (>35); GLUCOSE, FASTING 100 MG/DL (70-100); POTASSIUM SERUM 3.5 MEQ/L (3.5-5.1); SALICYLATE LEVEL < 1.7 MG/DL (5.0-30.0); SODIUM LEVEL 145 MEQ/L (136-145); TOTAL PROTEIN 6.4 GM/DL (6.4-8.2)
[2020-07-20 22:17] LABS: PLATELET COUNT, AUTOMATED 83 10^3/uL (150-450)
[2020-07-20 23:23] LABS: AMPHETAMINES LEVEL URINE NEGATIVE (NEGATIVE); BARBITURATES URINE NEGATIVE (NEGATIVE); BENZODIAZEPINES URINE NEGATIVE (NEGATIVE); CANNABINOIDS URINE NEGATIVE (NEGATIVE); COCAINE METABOLITE URINE NEGATIVE (NEGATIVE); METHADONE URINE NEGATIVE (NEGATIVE); OPIATES URINE NEGATIVE (NEGATIVE); PHENCYCLIDINE URINE NEGATIVE (NEGATIVE)
[2020-07-21] MEDS ORDERED: LOSARTAN 50MG TABLET PO ONE (01:00)
[2020-07-21] MEDS ORDERED: METOPROLOL TART 25 MG TABLET PO ONE (01:00)
[2020-07-21] MEDS ORDERED: AMOXICILLIN 500 MG CAP PO ONE (01:30)
[2020-07-21] MEDS ORDERED: MOM 30ML SUSPENSION UDC PO PRN (02:45)
[2020-07-21] MEDS ORDERED: traZODone 50 MG TAB PO PRN (02:45)
[2020-07-21] MEDS ORDERED: LORazepam 1 MG TAB PO PRN (02:45)
[2020-07-21] MEDS ORDERED: MAALOX 30 ML SUSP *UDC PO PRN (02:45)
[2020-07-21] MEDS ORDERED: LORazepam 2 MG TAB PO PRN (02:45)
[2020-07-21 04:59] VITALS: BP 132/72
[2020-07-21] MEDS: THIAMINE 100 MG TAB PO SCH ×2 (04:59→21:11)
[2020-07-21 05:00] VITALS: BP 132/78
[2020-07-21 06:34] VITALS: BP 148/92
[2020-07-21] MEDS: MULTIVITAMINS/MINERALS THERAP 1 TAB PO SCH (09:07)
[2020-07-21] MEDS: FOLIC ACID 1 MG TAB PO SCH (09:07)
[2020-07-21 09:24] VITALS: BP 146/82
--- NOTE | 2020-07-21 13:47 | MHHPEPDOC ---
General Date Of Admission: Jul 21, 2020 Legal Status: 9.39 Chief Complaint "I said I was going blow my brains out, but it's a saying, I don't actually want to do that". History of Present Illness HISTORY OF THE PRESENT ILLNESS: Patient is a 84 -year-old , Retired, Domiciled, , male, who was brought to [facility] on a 9.41 after making a suicidal statement. His granddaughter had taped the patient stating he was "going to blow my head off," put his hands around his 81 year old and she felt so unsafe that she has an order of protection on him now. She is staying with her Granddaughter. Patient drinks wine daily. LELAND was 0.16. He states that he became angry when his 's infidelity from 45 years ago came up in conversation this past summer where she had compareed his genitalia to her lover's. Patient has a history of pointing guns at family. Psychiatric Review of Systems Depression (2 or more weeks): other ("I have feelings that I could lose my " Makes him sad. ) Radha (4 or more days of): denies, other (Severe angry and agitation even in sobriety. ) Psychosis: denies PTSD: denies Anxiety: situational anxiety, stressor related anxiety Past Psychiatric History Previous Psychiatric Diagnosis: Unspecified Depressive Disorder, Previous Psychiatric Admissions: This is second admission, last admission was in May 2020 Suicide Attempts: None, but has made statements. Homicidal Threats: He reports none Psychiatric Follow-up: [facility] Psychiatric medications: Past Medical History Head Injury: No Seizures: No Hospitalizations: Yes Surgeries: Yes Family Medical/Psychiatric HX Medical Problems Brother - Bladder Cancer Father - Heart problems Mother - of old age Psychiatric Disorders: Yes Addiction: No Suicide Attemps/Completions: No Addiction History nicotine (stopped smoking in 1959), alcohol (states that he has 2 glasses of wine a night, I believe that the patient is under-reporting. His LELAND was ) Social History Childhood: Born in [place], [place] to both parents, had 3 brothers. He is the second oldest. His older brother (bladder cancer) Abuse/Trauma: None Current Living Situation: Lives with , 2 cats Education: HS graduated. 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 Employment: Retired Social Support: Legal: None Marital: 60 years, 1 child together, 2 step children Mental Status Examination General Appearance: disheveled, hospital scubs/clothing Build: overweight Demeanor: average Eye Contact: average Activity: slowed (due to age and unsteady gait) Behavior: cooperative Speech: clear Mood: depressed, anxious Affect: full Thought Process: logical/linear Thought Content (Delusions): denies SI, HI, AVH, paranoia Thought Content (Other): none reported, appears paranoid Thought Content (Aggressive): none reported Perception (Hallucinations): none reported Perception (Other): none reported Cognition (Impairment of): none reported Cognition(Intelligence Est.): average Oriented: Awake, Alert, Oriented times three Insight: fair Judgment: Fair Diagnoses Adjustment Disorder with mixed disturbances of emotion and conduct Alcohol Intoxication Alcohol Dependence Alcohol Induced Depressive Disorder r/o Dementia A-FIB/CHADSVASC A-FIB History Current/History of A-Fib/PAF?: No Assessment Patient is denying all symptoms of depression, anxiety, abnormal psychiatric symptoms. He appears to be mildly paranoid about his , and her reporting of a lover she had. I would like to confirm that this conversation happened, Patient's daughter feels that this may be dementia or Parkinson's He is not compliant with his medications. We will restart all home medications, treat for current symptoms and any other symptomology that is further established by collateral. Received call from Rosalie Gamboa: she reports that her has verbally threatened to harm her and several members of the family on several occasions. On two occasions he had pointed guns at family members. He has a long history of alcohol use/abuse, Long history of agitation, threatening behaviors and being verbally threatening for years while children were growing up, Rosalie states that during this summer, while inebriated he began to obsess about this lover she had 50 years ago. He asked her the questions about this other person's genitalia and he continued to question her for weeks and months after. He wanted her to answer specific questions and then verbally threatened her. He threatened to find this man from 50 years back and kill him. Per Rosalie, Atul will have very good days conversing and laughing with grandchildren and in the evening he has a change in his mood and affect. He has had a 60-65 year alcohol history, Since his last admission, he went to a remodeler to get his restriction dismissed. His remodeler told him that he was not in agreement and that he did not feel that he would win the ability to have his guns. Per Rosalie, she and the children are fearful due to his continued display of threats, agitation, threats of pointing loaded weapons at them. He has loaded it in front of them and verbally threatened to kill them. She wonders if he could be medically evaluated on a medical unit for his changes in his CT scan which showed a moderate change. I reinforced that unless patient is medically unstable or acutely unstable while on the psychiatric unit, there would be little to no possibility to have patient medically admitted for "dementia" She states that he stopped taking Zoloft and Disulfiram Initial Treatment Plan 1. Patient was admitted on a [9.39] status. 2. Complete history was obtained. 3. With patients permission, family will be contacted and database will be expanded. 4. Patients medication regimen will be reviewed and changed accordingly. 5. Patient will be provided with protected environment. 6. Patient will be treated with individual, group, and milieu therapies. 7. Patient will receive supportive psych-education. 8. Discharge planning will commence immediately. 9. Outpatient follow-up treatment will be strongly recommended. 10. The initial treatment plan will focus initially on: * Depression. * Risk for suicide. ESTIMATED LENGTH OF STAY: 3-5 DAYS. TIME SPENT COUNSELING AND COORDINATING INITIAL CARE: 40 minutes. Vital Signs Vital Signs Date Time Temp Pulse Resp B/P (MAP) Pulse Ox O2 Delivery O2 Flow Rate FiO2 07/21/20 09:24 64 146/82 07/21/20 04:59 98.3 14 99 Room Air Laboratory Data 24H Labs Laboratory Tests 2 07/20/20 21:27: Nucleated Red Blood Cells % (auto) 0.0, Immature Platelet Fraction 19.8H, Anion Gap 11, Glomerular Filtration Rate > 60.0, Calcium Level 8.4L, Total Bilirubin 0.6, Direct Bilirubin 0.2, Aspartate Amino Transf (AST/SGOT) 20, Alanine Aminotransferase (ALT/SGPT) 17, Alkaline Phosphatase 59, Total Protein 6.4, Albumin 3.2, Albumin/Globulin Ratio 1.0, Thyroid Stimulating Hormone (TSH) 1.340, Salicylates Level < 1.7L, Acetaminophen Level < 2.0L, Ethyl Alcohol Level 0.160H 07/20/20 22:52: Urine Opiates Screen NEGATIVE, Urine Methadone Screen NEGATIVE, Urine Barbiturates Screen NEGATIVE, Urine Phencyclidine Screen NEGATIVE, Urine Amphetamines Screen NEGATIVE, Urine Benzodiazepines Screen NEGATIVE, Urine Cocaine Metabolite Screen NEGATIVE, Urine Cannabinoids Screen NEGATIVE CBC/BMP Laboratory Tests 07/20/20 21:27 Medications Scheduled Amoxicillin (Amoxicillin) 500 Mg Tablet, 1,000 MG PO BID, (Reported) B2/Vits A,C,E/Lut/Zeaxanth/Min (Icaps Tablet) 1 Each Tablet.er, 1 TAB PO DAILY, (Reported) Calcium Carbonate (Calcium) 600 Mg Tablet, 600 MG PO BID, (Reported) Cholecalciferol (Vitamin D3) (Vitamin D3) 1,000 Unit Tablet, 2,000 UNITS PO DAILY, (Reported) Ferrous Sulfate (Ferrous Sulfate) 325 Mg Tab, 325 MG PO DAILY, (Reported) L.acidoph/L.bulg/B.bif/S.therm (Bacid Caplet) 1 Each Tablet, 1 TAB PO QHS, ( Reported) Losartan Potassium (Losartan Potassium) 100 Mg Tab, 100 MG PO QHS, (Reported) Lutein (Lutein) 6 Mg Cap, 6 MG PO DAILY, (Reported) Magnesium Chloride (Mag64) 64 Mg Tablet.dr, 64 MG PO DAILY, (Reported) Metoprolol Tartrate (Metoprolol Tartrate) 25 Mg Tab, 25 MG PO BID, (Reported) Multivitamins (Thera M Plus Tablet) 1 Each Tablet, 1 TAB PO DAILY, (Reported) Omeprazole (Omeprazole) 40 Mg Cap, 40 MG PO DAILY, (Reported) Potassium Chloride (Potassium Chloride) 10 Meq Capsule.er, 10 MEQ PO DAILY, (Reported) Prednisone (Prednisone) 5 Mg Tablet, 5 MG PO DAILY, (Reported) Scheduled PRN Prednisone (Prednisone) 5 Mg Tablet, 5 MG PO DAILY PRN for FLARE-UPS, (Reported) Miscellaneous Medications [Patient Comment] , (Reported) PATIENT IS A POOR HISTORIAN. COMPLETED WITH EXTERNAL MED HISTORY AND HOME MED LIST/PREVIOUS ADMISSION PAPERWORK FROM LAST MONTH. Allergies Coded Allergies: No Known Allergies (Unverified , 02/17/20) ANT LUJAN NP Jul 21, 2020 11:57
--- NOTE | 2020-07-21 15:36 | HPEPDOC ---
[facility] Medical History & Physical Date of Admission Jul 21, 2020 Date of Service: Jul 21, 2020 History and Physical CHIEF COMPLAINT: Suicidal ideations HISTORY OF PRESENT ILLNESS: Patient is an 84-year-old male brought into the emergency department by police due to reports of suicidal ideations, apparently he was "going to blow his head off". Apparently this had been spurned on by conversations of his 's infidelity from decades ago. He was also recently hospitalized for a similar episode just couple months ago at which time he had both suicidal and homicidal ideations and had been pointed guns at family members. Apparently after that episode his guns were removed from the home, but he has subsequently purchased more. PAST MEDICAL HISTORY: Tricuspid valve ring repair Dual-chamber pacemaker Hypertension Bladder cancer status post resection, cystoscopy 2019 and did show recurrence, however urology does not feel that he is a good candidate for cystectomy, and he did poorly with this first round of BCG, therefore recommending close surveillance at this time. 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 Denies illicit drug use. He states that he drinks 2 glasses of wine daily on a regular basis, admits that he was "drinking in excess" over the past few days. FAMILY HISTORY: One brother with bladder cancer. REVIEW OF SYSTEMS: Constitutional: Patient denies fevers, chills, night sweats, recent weight gain/loss. HEENT: Patient denies blurred or double vision, transient visual disturbances, postnasal drip, epistaxis, sore throat, difficulty chewing or swallowing food. Cardiovascular: Patient denies chest discomfort/pain, palpitations, exertional dyspnea, orthopnea, edema of the extremities, claudication. Respiratory: Patient denies dyspnea, wheezing, cough, hemoptysis, sputum production. Gastrointestinal: Patient denies nausea, vomiting, diarrhea, constipation, abdominal pain, melena, hematochezia, hematemesis, jaundice. PHYSICAL EXAMINATION: General: Awake, alert, oriented 3. HEENT: Head normocephalic atraumatic, conjunctiva are pink, sclera are nonicteric, buccal mucosa is pink and moist with no lesions in the oropharynx. Hearing is grossly intact to conversation. Respiratory: Clear to auscultation bilaterally with no wheezes, rales, or rhonchi. Cardiovascular: Predominantly regular rate and rhythm, but an occasional additional beat can be heard. No rubs, gallops, he does have 1/6 systolic murmur. Abdomen: Soft, nontender, nondistended, no hepatosplenomegaly appreciated. Bowel sounds present. Extremities: 2+ pulses in the radial and dorsalis pedis bilaterally. No evidence of clubbing or cyanosis. 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 Per most recent note 02/15/[address] [facility], he will be on this for life since he is not a good candidate for surgical intervention. -Bladder Cancer Outpatient follow-up with urology -Hypertension Continue home dose of losartan and metoprolol tartrate -Myelodysplastic syndrome, follows at the [facility] No intervention necessary at this time, continue to follow with his supervisor tumblers on an outpatient basis -Vitamin D deficiency Continue home dose of vitamin D supplementation -Iron deficiency anemia Continue home dose of iron supplementation -GERD Continue home dose of omeprazole Vital Signs Vital Signs Date Time Temp Pulse Resp B/P (MAP) Pulse Ox O2 Delivery O2 Flow Rate FiO2 07/21/20 09:24 64 146/82 07/21/20 04:59 98.3 14 99 Room Air Laboratory Data Labs 24H Laboratory Tests 2 07/20/20 21:27: Nucleated Red Blood Cells % (auto) 0.0, Immature Platelet Fraction 19.8H, Anion Gap 11, Glomerular Filtration Rate > 60.0, Calcium Level 8.4L, Total Bilirubin 0.6, Direct Bilirubin 0.2, Aspartate Amino Transf (AST/SGOT) 20, Alanine Aminotransferase (ALT/SGPT) 17, Alkaline Phosphatase 59, Total Protein 6.4, Albumin 3.2, Albumin/Globulin Ratio 1.0, Thyroid Stimulating Hormone (TSH) 1.340, Salicylates Level < 1.7L, Acetaminophen Level < 2.0L, Ethyl Alcohol Level 0.160H 07/20/20 22:52: Urine Opiates Screen NEGATIVE, Urine Methadone Screen NEGATIVE, Urine Barbiturates Screen NEGATIVE, Urine Phencyclidine Screen NEGATIVE, Urine Amphetamines Screen NEGATIVE, Urine Benzodiazepines Screen NEGATIVE, Urine Cocai ne Metabolite Screen NEGATIVE, Urine Cannabinoids Screen NEGATIVE CBC/BMP Laboratory Tests 07/20/20 21:27 Home Medications Scheduled Amoxicillin (Amoxicillin) 500 Mg Tablet, 1,000 MG PO BID B2/Vits A,C,E/Lut/Zeaxanth/Min (Icaps Tablet) 1 Each Tablet.er, 1 TAB PO DAILY Calcium Carbonate (Calcium) 600 Mg Tablet, 600 MG PO BID Cholecalciferol (Vitamin D3) (Vitamin D3) 1,000 Unit Tablet, 2,000 UNITS PO DAILY Ferrous Sulfate (Ferrous Sulfate) 325 Mg Tab, 325 MG PO DAILY L.acidoph/L.bulg/B.bif/S.therm (Bacid Caplet) 1 Each Tablet, 1 TAB PO QHS Losartan Potassium (Losartan Potassium) 100 Mg Tab, 100 MG PO QHS Lutein (Lutein) 6 Mg Cap, 6 MG PO DAILY Magnesium Chloride (Mag64) 64 Mg Tablet.dr, 64 MG PO DAILY Metoprolol Tartrate (Metoprolol Tartrate) 25 Mg Tab, 25 MG PO BID Multivitamins (Thera M Plus Tablet) 1 Each Tablet, 1 TAB PO DAILY Omeprazole (Omeprazole) 40 Mg Cap, 40 MG PO DAILY Potassium Chloride (Potassium Chloride) 10 Meq Capsule.er, 10 MEQ PO DAILY Prednisone (Prednisone) 5 Mg Tablet, 5 MG PO DAILY Scheduled PRN Prednisone (Prednisone) 5 Mg Tablet, 5 MG PO DAILY PRN for FLARE-UPS Miscellaneous Medications [Patient Comment] PATIENT IS A POOR HISTORIAN. COMPLETED WITH EXTERNAL MED HISTORY AND HOME MED LIST/PREVIOUS ADMISSION PAPERWORK FROM LAST MONTH. Allergies Coded Allergies: No Known Allergies (Unverified , 02/17/20) A-FIB/CHADSVASC A-FIB History Current/History of A-Fib/PAF?: Yes Current PO Anticoag Therapy: No ALPESH LOPEZ DO Jul 21, 2020 15:36
[2020-07-21 15:59] VITALS: BP 149/70
[2020-07-21] MEDS ORDERED: AMOXICILLIN 500 MG CAP PO SCH (21:00)
[2020-07-21] MEDS: LOSARTAN 50MG TABLET PO SCH (21:11)
[2020-07-21] MEDS: LACTOBACILLUS ACIDOPHILUS CAP (BACID) PO SCH (21:11)
[2020-07-21] MEDS: AMOXICILLIN 500 MG CAP PO SCH (21:11)
[2020-07-21] MEDS: QUEtiapine FUMARATE 50 MG TAB PO SCH (21:11)
[2020-07-21] MEDS: METOPROLOL TART 25 MG TABLET PO SCH (21:11)
[2020-07-21 21:13] VITALS: BP 142/78
[2020-07-22 06:40] VITALS: BP 152/78
[2020-07-22] MEDS ORDERED: predniSONE 5 MG TAB PO PRN (09:00)
[2020-07-22] MEDS: VITAMIN D 1,000 INTERNATIONAL UNITS TABLET PO SCH (09:15)
[2020-07-22] MEDS: MAGNESIUM CHLORIDE 64 MG TABCR (SLO MAG) PO SCH (09:15)
[2020-07-22] MEDS: METOPROLOL TART 25 MG TABLET PO SCH ×2 (09:15→20:24)
[2020-07-22] MEDS: AMOXICILLIN 500 MG CAP PO SCH ×2 (09:15→20:24)
[2020-07-22] MEDS: FOLIC ACID 1 MG TAB PO SCH (09:16)
[2020-07-22] MEDS: predniSONE 5 MG TAB PO SCH (09:16)
[2020-07-22] MEDS: POTASSIUM CHLORIDE 10 MEQ SR TABLET PO SCH (09:16)
[2020-07-22] MEDS: THIAMINE 100 MG TAB PO SCH ×2 (09:16→20:24)
[2020-07-22] MEDS: MULTIVITAMINS/MINERALS THERAP 1 TAB PO SCH (09:16)
[2020-07-22] MEDS: FERROUS SULFATE 325MG TAB PO SCH (09:16)
[2020-07-22] MEDS: OMEPRAZOLE 20 MG CAP PO SCH (09:16)
--- NOTE | 2020-07-22 12:52 | MHIPNPDOC ---
[facility] Progress Note Progress Note DATE OF SERVICE: 07/22/20 Subjective HPI: Atul presents today for a mental health examine. He reports that he wants to go home. Discussed with him that his main provider will be the one to decide. He seems to have a limited understanding of the situation that brought him in, feeling that his alcohol had simply led him to say things. Objective Appearance: Appears to be stated age. Well nourished. Well groomed. Fair hygiene. Mood: Dysthymic. Constricted. Thought Form: Linear and goal directed. Thought Content: No evidence of suicidal ideation. No thoughts of self harm. No evidence of delusions. No evidence of aggressive or homicidal ideation. Judgement: Poor to fair. Insight: Poor to fair. Assessment F33.9 Major depressive disorder, recurrent, unspecified F10.988 Alcohol use, unspecified with other alcohol-induced disorder Plan Continue medications as of current. Recommended patient to consider addiction treatment of which he declined. Vital Signs Vital Signs Date Time Temp Pulse Resp B/P (MAP) Pulse Ox O2 Delivery O2 Flow Rate FiO2 07/22/20 09:15 92 140/78 07/22/20 06:40 99.0 16 98 Room Air Current Medications Current Medications Medications (Trade) Dose Ordered Sig/Araceli Route PRN Reason Start Time Stop Time Status Last Admin Dose Admin Acetaminophen (Tylenol Tab) 650 mg Q6HP PRN PO HEADACHE or DISCOMFORT 07/21/20 02:45 Al Hydrox/Mg Hydrox/Simethicone (Mylanta) 30 ml Q4HP PRN PO HEARTBURN/INDIGESTION 07/21/20 02:45 Amoxicillin (Amoxicillin) 1,000 mg BID PO 07/21/20 21:00 07/21/20 04:07 DC Amoxicillin (Amoxicillin) 1,000 mg BID PO 07/21/20 21:00 07/22/20 09:15 Ferrous Sulfate (Ferrous Sulfate) 325 mg DAILY PO 07/22/20 09:00 07/22/20 09:16 Folic Acid (Folic Acid) 1 mg DAILY PO 07/21/20 09:00 07/22/20 09:16 Home Med (Med Rec Complete!) ASDIRECTED XX 07/21/20 03:00 07/21/20 02:59 DC Lactobacillus Acidophilus (Bacid) 1 ea QHS PO 07/21/20 21:00 07/21/20 21:11 Lorazepam (Ativan) 1 mg BID PRN PO ANXIETY/AGITATION 07/21/20 02:45 07/22/20 02:45 DC Lorazepam (Ativan) 2 mg ASDIRECTED PRN PO SEE PROTOCOL 07/21/20 02:45 07/21/20 06:38 Losartan Potassium (Cozaar) 100 mg QHS PO 07/21/20 21:00 07/21/20 21:11 Magnesium Hydroxide (Milk Of Magnesia) 30 ml DAILYPRN PRN PO CONSTIPATION 07/21/20 02:45 Magnesium Chloride (Slow-Mag) 64 mg DAILY PO 07/22/20 09:00 07/22/20 09:15 Metoprolol Tartrate (Lopressor) 25 mg BID PO 07/21/20 21:00 07/22/20 09:15 Miscellaneous (Unresolved Clarification Entry) SEE LABEL COMMENTS DAILY XX 07/21/20 09:00 07/21/20 15:33 DC Multivitamins (Theragram-M) 1 tab DAILY PO 07/21/20 09:00 07/22/20 09:16 Omeprazole (PriLOSEC) 40 mg DAILY PO 07/22/20 09:00 07/22/20 09:16 Potassium Chloride (Micro-K Extencaps) 10 meq DAILY PO 07/22/20 09:00 07/22/20 09:16 Prednisone (Deltasone) 5 mg DAILY PO 07/22/20 09:00 07/22/20 09:16 Prednisone (Deltasone) 5 mg DAILY PRN PO FLARE-UPS 07/22/20 09:00 Quetiapine Fumarate (SEROquel) 50 mg QHS PO 07/21/20 21:00 07/21/20 21:11 Thiamine HCl (Thiamine HCl) 100 mg BID PO 07/21/20 03:00 07/23/20 21:01 07/22/20 09:16 Trazodone HCl (Desyrel) 50 mg QHSP PRN PO INSOMNIA 07/21/20 02:45 Vitamin D (Vitamin D) 2,000 units DAILY PO 07/22/20 09:00 07/22/20 09:15 Allergies Coded Allergies: No Known Allergies (Unverified , 02/17/20) MARINA ALEXANDER DO Jul 22, 2020 12:52
[2020-07-22 15:00] VITALS: BP 144/72
[2020-07-22 16:19] VITALS: BP 144/72
[2020-07-22] MEDS: LACTOBACILLUS ACIDOPHILUS CAP (BACID) PO SCH (20:24)
[2020-07-22] MEDS: LOSARTAN 50MG TABLET PO SCH (20:24)
[2020-07-22] MEDS: QUEtiapine FUMARATE 50 MG TAB PO SCH (20:24)
[2020-07-22 20:49] VITALS: BP 138/70
[2020-07-23 06:46] VITALS: BP 153/72
[2020-07-23 07:25] VITALS: BP 138/70
[2020-07-23] MEDS: MAGNESIUM CHLORIDE 64 MG TABCR (SLO MAG) PO SCH (08:45)
[2020-07-23] MEDS: OMEPRAZOLE 20 MG CAP PO SCH (08:46)
[2020-07-23] MEDS: FERROUS SULFATE 325MG TAB PO SCH (08:46)
[2020-07-23] MEDS: AMOXICILLIN 500 MG CAP PO SCH ×2 (08:46→20:35)
[2020-07-23] MEDS: POTASSIUM CHLORIDE 10 MEQ SR TABLET PO SCH (08:46)
[2020-07-23] MEDS: VITAMIN D 1,000 INTERNATIONAL UNITS TABLET PO SCH (08:46)
[2020-07-23] MEDS: MULTIVITAMINS/MINERALS THERAP 1 TAB PO SCH (08:46)
[2020-07-23] MEDS: THIAMINE 100 MG TAB PO SCH ×2 (08:46→20:33)
[2020-07-23] MEDS: METOPROLOL TART 25 MG TABLET PO SCH ×2 (08:47→20:35)
[2020-07-23] MEDS: FOLIC ACID 1 MG TAB PO SCH (08:47)
[2020-07-23] MEDS: predniSONE 5 MG TAB PO SCH (08:47)
[2020-07-23] MEDS: ACETAMINOPHEN TAB 650MG DOSE (2X325MG) PO PRN ×2 (10:30→20:39)
--- NOTE | 2020-07-23 14:59 | MHIPNPDOC ---
[facility] Progress Note Progress Note DATE OF SERVICE: 07/23/20 HPI: Atul presents today for update on alcohol use and medications. He feels like he can control his alcohol use and it is no big deal. MEDICATIONS: He reports no side effects from the medication he is on. Objective Affect: Improved. Mood: Less Dysthymic. Thought Form: More linear. Thought Content: Associations intact. Denies homicidal and suicidal ideation. Judgement: Poor to fair. Insight: Poor to fair. Assessment F32.89 Other specified depressive episodes F10.20 Alcohol dependence, uncomplicated Plan Continue medication as current. He will talk to his provider tomorrow about his discharge and other related treatment. Vital Signs Vital Signs Date Time Temp Pulse Resp B/P (MAP) Pulse Ox O2 Delivery O2 Flow Rate FiO2 07/23/20 08:47 68 128/72 07/23/20 06:46 97.9 14 98 Room Air Current Medications Current Medications Medications (Trade) Dose Ordered Sig/Araceli Route PRN Reason Start Time Stop Time Status Last Admin Dose Admin Acetaminophen (Tylenol Tab) 650 mg Q6HP PRN PO HEADACHE or DISCOMFORT 07/21/20 02:45 07/23/20 10:30 Al Hydrox/Mg Hydrox/Simethicone (Mylanta) 30 ml Q4HP PRN PO HEARTBURN/INDIGESTION 07/21/20 02:45 Amoxicillin (Amoxicillin) 1,000 mg BID PO 07/21/20 21:00 07/21/20 04:07 DC Amoxicillin (Amoxicillin) 1,000 mg BID PO 07/21/20 21:00 07/23/20 08:46 Ferrous Sulfate (Ferrous Sulfate) 325 mg DAILY PO 07/22/20 09:00 07/23/20 08:46 Folic Acid (Folic Acid) 1 mg DAILY PO 07/21/20 09:00 07/23/20 08:47 Home Med (Med Rec Complete!) ASDIRECTED XX 07/21/20 03:00 07/21/20 02:59 DC Lactobacillus Acidophilus (Bacid) 1 ea QHS PO 07/21/20 21:00 07/22/20 20:24 Lorazepam (Ativan) 1 mg BID PRN PO ANXIETY/AGITATION 07/21/20 02:45 07/22/20 02:45 DC Lorazepam (Ativan) 2 mg ASDIRECTED PRN PO SEE PROTOCOL 07/21/20 02:45 07/21/20 06:38 Losartan Potassium (Cozaar) 100 mg QHS PO 07/21/20 21:00 07/22/20 20:24 Magnesium Hydroxide (Milk Of Magnesia) 30 ml DAILYPRN PRN PO CONSTIPATION 07/21/20 02:45 Magnesium Chloride (Slow-Mag) 64 mg DAILY PO 07/22/20 09:00 07/23/20 08:45 Metoprolol Tartrate (Lopressor) 25 mg BID PO 07/21/20 21:00 07/23/20 08:47 Miscellaneous (Unresolved Clarification Entry) SEE LABEL COMMENTS DAILY XX 07/21/20 09:00 07/21/20 15:33 DC Multivitamins (Theragram-M) 1 tab DAILY PO 07/21/20 09:00 07/23/20 08:46 Omeprazole (PriLOSEC) 40 mg DAILY PO 07/22/20 09:00 07/23/20 08:46 Potassium Chloride (Micro-K Extencaps) 10 meq DAILY PO 07/22/20 09:00 07/23/20 08:46 Prednisone (Deltasone) 5 mg DAILY PO 07/22/20 09:00 07/23/20 08:47 Prednisone (Deltasone) 5 mg DAILY PRN PO FLARE-UPS 07/22/20 09:00 Quetiapine Fumarate (SEROquel) 50 mg QHS PO 07/21/20 21:00 07/22/20 20:24 Thiamine HCl (Thiamine HCl) 100 mg BID PO 07/21/20 03:00 07/23/20 21:01 07/23/20 08:46 Trazodone HCl (Desyrel) 50 mg QHSP PRN PO INSOMNIA 07/21/20 02:45 Vitamin D (Vitamin D) 2,000 units DAILY PO 07/22/20 09:00 07/23/20 08:46 Allergies Coded Allergies: No Known Allergies (Unverified , 02/17/20) MARINA ALEXANDER DO Jul 23, 2020 14:59
[2020-07-23 16:24] VITALS: BP 136/75
[2020-07-23] MEDS: LACTOBACILLUS ACIDOPHILUS CAP (BACID) PO SCH (20:33)
[2020-07-23] MEDS: QUEtiapine FUMARATE 50 MG TAB PO SCH (20:33)
[2020-07-23] MEDS: LOSARTAN 50MG TABLET PO SCH (20:36)
[2020-07-23] MEDS: ANALGESIC BALM CRM 120 GM TOP PRN (21:19)
[2020-07-24 06:37] VITALS: BP 127/64
[2020-07-24 06:38] VITALS: BP 127/64
[2020-07-24] MEDS: ANALGESIC BALM CRM 120 GM TOP PRN ×2 (07:11→21:31)
[2020-07-24] MEDS: ACETAMINOPHEN TAB 650MG DOSE (2X325MG) PO PRN (07:12)
[2020-07-24] MEDS: FOLIC ACID 1 MG TAB PO SCH (08:29)
[2020-07-24] MEDS: OMEPRAZOLE 20 MG CAP PO SCH (08:29)
[2020-07-24] MEDS: MULTIVITAMINS/MINERALS THERAP 1 TAB PO SCH (08:29)
[2020-07-24] MEDS: MAGNESIUM CHLORIDE 64 MG TABCR (SLO MAG) PO SCH (08:29)
[2020-07-24] MEDS: VITAMIN D 1,000 INTERNATIONAL UNITS TABLET PO SCH (08:29)
[2020-07-24] MEDS: POTASSIUM CHLORIDE 10 MEQ SR TABLET PO SCH (08:29)
[2020-07-24] MEDS: METOPROLOL TART 25 MG TABLET PO SCH ×2 (08:30→20:13)
[2020-07-24] MEDS: AMOXICILLIN 500 MG CAP PO SCH ×2 (08:30→20:13)
[2020-07-24] MEDS: FERROUS SULFATE 325MG TAB PO SCH (08:30)
[2020-07-24] MEDS: predniSONE 5 MG TAB PO SCH (08:30)
--- NOTE | 2020-07-24 14:51 | MHIPNPDOC ---
[facility] Progress Note Progress Note DATE OF SERVICE: 07/24/20 HISTORY: Patient is a 84 -year-old , Retired, Domiciled, , male, who was brought to [facility] on a 9.41 after making a suicidal statement. His granddaughter had taped the patient stating he was "going to blow my head off," put his hands around his 81 year old and she felt so unsafe that she has an order of protection on him now. She is staying with her Granddaughter. Patient drinks wine daily. LELAND was 0.16. He states that he became angry when his 's infidelity from 45 years ago came up in conversation this past summer where she had compared his genitalia to her lover's. Patient has a history of pointing guns at family. VITAL SIGNS: See below. NEW TEST RESULTS: CURRENT MEDICATIONS: See below. MENTAL STATUS EXAMINATION: Patient is a 84 -year old , Retired, Domiciled, male, who is was admitted to [facility] on a 9.39 after he made a suicidal statement and had become physically aggressive with his . . Speech: Is minimal responses, fluid and normal rate, tone and volume Language skills are intact Thought processes including: linear and goal oriented Thought content: denies depression and anxiety, suicidal/homicidal ideation, planning or intent Abstract reasoning, and computation: fair Description of associations: denies and is not observed with any symptoms Description of abnormal or psychotic thoughts: none Judgment: fair Insight: fair Orientation: alert and oriented to person, palce time and situation Recent and remote memory: intact Attention span and concentration: fair Language: expansive Fund of knowledge: average Mood: denies depression. Affect: flat and depressed DIAGNOSES: Alcohol Intoxication Alcohol Induced Depressive Disorder Alcohol dependence, uncomplicated Unspecified Depressive Disorder ASSESSMENT: Patient denies depression or suicidal ideation. He states that he will go to his camp later in the week if he is discharged. I received a call from patient's Rosalie. She is planning on staying with her daughter for 30 days, they will go and get him and allow him time to spend with his and have meals with him to observe and determine whether or not she is safe to return home. I offered to speak to the patient and tell him that this is my discharge plan for him. I do feel strongly that the Safe Act needs to be in place in order to mitigate any further gun purchases by this patient. At this time, patient is not exhibiting abnormal psychiatric symptoms, denies depression and suicidal/homicidal ideation. He reports that he wants to decrease his alcohol consumption and is aware that his guns and alcohol have been removed from the home. MANAGEMENT PLAN: Patient to be continued on his home medications. Discharge tomorrow. TIME SPENT: 25 minutes. Vital Signs Vital Signs Date Time Temp Pulse Resp B/P (MAP) Pulse Ox O2 Delivery O2 Flow Rate FiO2 07/24/20 08:30 73 127/64 07/24/20 06:38 98.0 12 Room Air 07/23/20 06:46 98 Current Medications Current Medications Medications (Trade) Dose Ordered Sig/Araceli Route PRN Reason Start Time Stop Time Status Last Admin Dose Admin Acetaminophen (Tylenol Tab) 650 mg Q6HP PRN PO HEADACHE or DISCOMFORT 07/21/20 02:45 07/24/20 07:12 Al Hydrox/Mg Hydrox/Simethicone (Mylanta) 30 ml Q4HP PRN PO HEARTBURN/INDIGESTION 07/21/20 02:45 Amoxicillin (Amoxicillin) 1,000 mg BID PO 07/21/20 21:00 07/21/20 04:07 DC Amoxicillin (Amoxicillin) 1,000 mg BID PO 07/21/20 21:00 07/24/20 08:30 Ferrous Sulfate (Ferrous Sulfate) 325 mg DAILY PO 07/22/20 09:00 07/24/20 08:30 Folic Acid (Folic Acid) 1 mg DAILY PO 07/21/20 09:00 07/24/20 08:29 Home Med (Med Rec Complete!) ASDIRECTED XX 07/21/20 03:00 07/21/20 02:59 DC Lactobacillus Acidophilus (Bacid) 1 ea QHS PO 07/21/20 21:00 07/23/20 20:33 Lorazepam (Ativan) 1 mg BID PRN PO ANXIETY/AGITATION 07/21/20 02:45 07/22/20 02:45 DC Lorazepam (Ativan) 2 mg ASDIRECTED PRN PO SEE PROTOCOL 07/21/20 02:45 07/21/20 06:38 Losartan Potassium (Cozaar) 100 mg QHS PO 07/21/20 21:00 07/23/20 20:36 Magnesium Hydroxide (Milk Of Magnesia) 30 ml DAILYPRN PRN PO CONSTIPATION 07/21/20 02:45 Magnesium Chloride (Slow-Mag) 64 mg DAILY PO 07/22/20 09:00 07/24/20 08:29 Menthol/Methyl Salicylate (Bengay Cream) BIDP PRN TOP neck pain 07/23/20 17:00 07/24/20 07:11 Metoprolol Tartrate (Lopressor) 25 mg BID PO 07/21/20 21:00 07/24/20 08:30 Miscellaneous (Unresolved Clarification Entry) SEE LABEL COMMENTS DAILY XX 07/21/20 09:00 07/21/20 15:33 DC Multivitamins (Theragram-M) 1 tab DAILY PO 07/21/20 09:00 07/24/20 08:29 Omeprazole (PriLOSEC) 40 mg DAILY PO 07/22/20 09:00 07/24/20 08:29 Potassium Chloride (Micro-K Extencaps) 10 meq DAILY PO 07/22/20 09:00 07/24/20 08:29 Prednisone (Deltasone) 5 mg DAILY PO 07/22/20 09:00 07/24/20 08:30 Prednisone (Deltasone) 5 mg DAILY PRN PO FLARE-UPS 07/22/20 09:00 Quetiapine Fumarate (SEROquel) 50 mg QHS PO 07/21/20 21:00 07/23/20 20:33 Thiamine HCl (Thiamine HCl) 100 mg BID PO 07/21/20 03:00 07/23/20 21:01 DC 07/23/20 20:33 Trazodone HCl (Desyrel) 50 mg QHSP PRN PO INSOMNIA 07/21/20 02:45 Vitamin D (Vitamin D) 2,000 units DAILY PO 07/22/20 09:00 07/24/20 08:29 Allergies Coded Allergies: No Known Allergies (Unverified , 02/17/20) ANT LUJAN NP Jul 24, 2020 12:44
[2020-07-24 17:59] VITALS: BP 136/78
[2020-07-24] MEDS: QUEtiapine FUMARATE 50 MG TAB PO SCH (20:13)
[2020-07-24] MEDS: LACTOBACILLUS ACIDOPHILUS CAP (BACID) PO SCH (20:13)
[2020-07-24] MEDS: LOSARTAN 50MG TABLET PO SCH (20:14)
[2020-07-24 22:05] VITALS: BP 151/74
[2020-07-25] MEDS: ACETAMINOPHEN TAB 650MG DOSE (2X325MG) PO PRN (05:17)
[2020-07-25 06:44] VITALS: BP 153/73
[2020-07-25 06:45] VITALS: BP 153/73
[2020-07-25 08:59] VITALS: BP 153/73
[2020-07-25] MEDS: METOPROLOL TART 25 MG TABLET PO SCH (08:59)
[2020-07-25] MEDS: FOLIC ACID 1 MG TAB PO SCH (08:59)
[2020-07-25] MEDS: MULTIVITAMINS/MINERALS THERAP 1 TAB PO SCH (08:59)
[2020-07-25] MEDS: OMEPRAZOLE 20 MG CAP PO SCH (08:59)
[2020-07-25] MEDS: FERROUS SULFATE 325MG TAB PO SCH (09:00)
[2020-07-25] MEDS: predniSONE 5 MG TAB PO SCH (09:00)
[2020-07-25] MEDS: POTASSIUM CHLORIDE 10 MEQ SR TABLET PO SCH (09:00)
[2020-07-25] MEDS: MAGNESIUM CHLORIDE 64 MG TABCR (SLO MAG) PO SCH (09:00)
[2020-07-25] MEDS: VITAMIN D 1,000 INTERNATIONAL UNITS TABLET PO SCH (09:00)
[2020-07-25] MEDS: AMOXICILLIN 500 MG CAP PO SCH (09:00)
[2020-07-25] MEDS: ANALGESIC BALM CRM 120 GM TOP PRN (09:01)
[2020-07-25] MEDS ORDERED: QUET5TAB PO (09:15)
--- NOTE | 2020-07-25 12:54 | MHDSPDOC ---
[facility] Discharge Summary Discharge Summary DATE OF ADMISSION: Jul 21, 2020 at 02:42 DATE OF DISCHARGE: July 25, 2020 at 1240 DISCHARGE DIAGNOSES: Adjustment Disorder with mixed disturbances of emotion and conduct Alcohol Intoxication Alcohol Dependence Alcohol Induced Depressive Disorder REASON FOR ADMISSION: Patient is a 84 -year-old , Retired, Domiciled, , male, who was brought to [facility] on a 9.41 after making a suicidal statement. His granddaughter had taped the patient stating he was "going to blow my head off," put his hands around his 81 year old and she felt so unsafe that she has an order of protection on him now. She is staying with her Granddaughter. Patient drinks wine daily. LELAND was 0.16. He states that he became angry when his 's infidelity from 45 years ago came up in conversation this past summer where she had compared his genitalia to her lover's. Patient has a history of pointing guns at family. CONSULTANTS INVOLVED: See Medical H + P by Medical Provider TREATMENT AND PROGRESS ON THE UNIT : Patient was admitted to the [facility] on a 9.39 legal status he was afforded the following treatment modalities: 1) Individual Therapy 2) Group Therapy 3) Medication Management 4) Milieu Therapy 5) Safe Environment HOSPITAL COURSE: Patient admitted to [facility] on a 9.39. He denied depression, anxiety, suicidal ideation/homicidal ideation and abnormal psychiatric symptoms of paranoia, delusional thinking, obsessions, syed, auditory/visual and tactile hallucinations. DISCHARGE ASSESSMENT: In today's interview, patient is moving slower and having difficulty ambulating. He states that yesterday his back went out of alignment and is hopeful that he is being discharged in order to go to his chiropractor. Patient denies depression or suicidal ideation at this interview.. He states that he will go to his camp later in the week if he is discharged. I reinforced that he should only go to camp if he has supervision. His will be staying with their daughter. I encouraged the patient to see his at their daughter's home until she is comfortable returning. Patient was placed on the Safe Act Reporting list, he is aware of this. At this time, patient is not exhibiting abnormal psychiatric symptoms, denies depression and suicida l/homicidal ideation. He reports that he wants to decrease his alcohol consumption and is aware that his guns and alcohol have been removed from the home. At this time, due to patient reports of no depression, suicidal/homicidal ideation, no abnormal psychiatric symptoms and a normal mental status exam, I have no evidence or reporting that warrants his continued stay on [facility]. I am discharging that patient as he meets criteria for discharge. MENTAL STATUS EXAMINATION ON DISCHARGE: Patient is a 84 -year old , Retired, Domiciled, male, who is was admitted to [facility] on a 9.39 after he made a suicidal statement and had become physically aggressive with his . Speech: Is minimal responses, fluid and normal rate, tone and volume Language skills are intact Thought processes including: linear and goal oriented Thought content: denies depression and anxiety, suicidal/homicidal ideation, planning or intent Abstract reasoning, and computation: fair Description of associations: denies and is not observed with any symptoms Description of abnormal or psychotic thoughts: none Judgment: fair Insight: fair Orientation: alert and oriented to person, place time and situation Recent and remote memory: intact Attention span and concentration: fair Language: expansive Fund of knowledge: average Mood: denies depression. Affect: flat MEDICATIONS ON DISCHARGE: Patient was continued on all his home medications, he has a prescriptions for Seroquel 50 mg at for Agitation. PLAN/FOLLOWUP ARRANGEMENTS: Patient to follow up with his PCP, chiropractor The amount of time spent in the coordination of care for this patient was approximately 35 minutes. Vital Signs/I&Os Vital Signs Date Time Temp Pulse Resp B/P (MAP) Pulse Ox O2 Delivery O2 Flow Rate FiO2 07/25/20 08:59 65 153/73 07/25/20 06:44 98.5 16 Room Air 07/23/20 06:46 98 Medications Scheduled Amoxicillin (Amoxicillin) 500 Mg Tablet, 1,000 MG PO BID, (Reported) B2/Vits A,C,E/Lut/Zeaxanth/Min (Icaps Tablet) 1 Each Tablet.er, 1 TAB PO DAILY, (Reported) Calcium Carbonate (Calcium) 600 Mg Tablet, 600 MG PO BID, (Reported) Cholecalciferol (Vitamin D3) (Vitamin D3) 1,000 Unit Tablet, 2,000 UNITS PO DAILY, (Reported) Ferrous Sulfate (Ferrous Sulfate) 325 Mg Tab, 325 MG PO DAILY, (Reported) L.acidoph/L.bulg/B.bif/S.therm (Bacid Caplet) 1 Each Tablet, 1 TAB PO QHS, (Reported) Losartan Potassium (Losartan Potassium) 100 Mg Tab, 100 MG PO QHS, (Reported) Lutein (Lutein) 6 Mg Cap, 6 MG PO DAILY, (Reported) Magnesium Chloride (Mag64) 64 Mg Tablet.dr, 64 MG PO DAILY, (Reported) Metoprolol Tartrate (Metoprolol Tartrate) 25 Mg Tab, 25 MG PO BID, (Reported) Multivitamins (Thera M Plus Tablet) 1 Each Tablet, 1 TAB PO DAILY, (Reported) Omeprazole (Omeprazole) 40 Mg Cap, 40 MG PO DAILY, (Reported) Potassium Chloride (Potassium Chloride) 10 Meq Capsule.er, 10 MEQ PO DAILY, (Reported) Prednisone (Prednisone) 5 Mg Tablet, 5 MG PO DAILY, (Reported) Quetiapine Fumarate (Quetiapine Fumarate) 50 Mg Tablet, 50 MG PO QHS for Agitation, #7 Scheduled PRN Prednisone (Prednisone) 5 Mg Tablet, 5 MG PO DAILY PRN for FLARE-UPS, (Reported) Miscellaneous Medications [Patient Comment] , (Reported) PATIENT IS A POOR HISTORIAN. COMPLETED WITH EXTERNAL MED HISTORY AND HOME MED LIST/PREVIOUS ADMISSION PAPERWORK FROM LAST MONTH. Allergies Coded Allergies: No Known Allergies (Unverified , 02/17/20) ANT LUJAN NP Jul 25, 2020 12:54
== END 2020-07-25 15:35 | disposition home or self-care (01) | DRG 882 ==
LOC: M ED 20:36 → M ED INP 07-21 02:42 → M PSY 07-21 04:05
PROVIDERS: ADMIT Psychiatry & Neurology Psychiatry; ATTEND Psychiatry & Neurology Psychiatry
DX: F43.25 Adjustment disorder with mixed disturbance of emotions and conduct (principal); F10.24 Alcohol dependence with alcohol-induced mood disorder; F10.229 Alcohol dependence with intoxication, unspecified; I10 Essential (primary) hypertension; D46.9 Myelodysplastic syndrome, unspecified; K44.9 Diaphragmatic hernia without obstruction or gangrene; E55.9 Vitamin D deficiency, unspecified; D50.9 Iron deficiency anemia, unspecified; K21.9 Gastro-esophageal reflux disease without esophagitis; M19.90 Unspecified osteoarthritis, unspecified site; Z87.891 Personal history of nicotine dependence; Z95.0 Presence of cardiac pacemaker; Z85.51 Personal history of malignant neoplasm of bladder; Z95.3 Presence of xenogenic heart valve; Z96.652 Presence of left artificial knee joint; Z79.52 Long term (current) use of systemic steroids; Z79.899 Other long term (current) drug therapy